=== PATIENT | male | born 1965 | race Caucasian/White ===

== ENCOUNTER → 2016-11-09 | Outpatient (CLI) | payer OTHER ==
[~2016-11-09] MED LIST: *BLDWK10; *CXR; *ECHO -; ACET1TAB18 PO; AMITRIP25 PO; AMO500 PO; AUG500 PO; AUGXR10 PO; Advil PO; DEPA500T; DEPAKOTE; DILA2TAB; DILAUDID; DOXYCYC100; EFFEXORXL3 PO; EFFEXORXL7 PO; ELOCONCR TOPICAL; GABA-279 PO; IMITREX100 PO; INDOCIN PO; LEVA750T; LUNESTA2 PO; LYRICA75 PO; MAXALYMLT1 PO; MECLIZIN PO; MIRALAX PO; No Historical Meds; OXYC15TA76 PO; PAXIL20; PERC10TA17 PO; PRILOSEC PO; SOMA350T PO; TOPA50TA7 PO; TUSSI; TUSSIONEX PO; TYL325 PO; ULTRAM50 PO; VALIUM PO; VICO5TAB16 PO; VICODIN PO; VOLT1GEL24 TD; WELLBSR150
--- NOTE | 2016-11-15 23:48 | ECWPNPC ---
PATIENT NAME: EVARISTO HUDSON : 1965 GENDER: MALE VISIT DATE: 11/09/2016 DISCHARGE DATE: 11/09/16 1123 VISIT LOCKED DATE TIME: PHYSICIAN: KIANNA DURON PHYSICIAN PAGER NO: [phone] RESOURCE: KIANNA DURON REASON FOR APPOINTMENT 1. BACK PAIN HISTORY OF PRESENT ILLNESS HISTORY OF PRESENT ILLNESS: HERE FOR F/U.HAD BILATERAL SIJ ON 06-28-16.REPORTED 75%IMPROVEMENT FOR 3 DAYS THEN PAIN GRADUALLY RETURNED.REPORTS SEVERE INCREASE IN PAIN OVER THE PAST SEVERAL MONTHS W RADIATION INTO LEFT THIGH.THIS IS HIS TYPICAL PAIN DISTRIBUTION.CONTINUES W CONSTANT LEFT FOOT NUMBNESS WHICH IS CHRONIC.HISTORY OF ONE BACK SURGERY 2 YRS AGO.THIS WAS DONE BY DR. EVANS IN [place].USING OXYCODONE 15MG 4X DAY WHICH IS ONLY MARGIANALLY EFFECTIVE.DISCUSSED ISSUES OF TOLERANCE AND PROBLEMS ASSOCIATED WITH OPIOD EXPOSURE ON A DAILY BASIS.HE WOULD ALSO LIKE TO TALK TO SURGEON.MRI L/S [id number]-REVIEWED WITH PATIENT.NEW DISC PROTRUSION AT L4-5 LEVEL CAUSING COMPRESSION OF RIGHT L4 NERVE IN NEURAL FORAMEN.MILD CENTRAL CANAL STENOSIS.DIFFUSE DISC BULGE AT THE L5/S1.THERE IS COMPRESSION OF THE LEFT L5 NERVE IN NEURAL FORAMEN.RATING PAIN VAS 7/10. PAIN THE PATIENT DESCRIBES THE PAIN... THE PATIENT DESCRIBES THE PAIN... FALL RISK SCREENING: SCREENING :NO FALLS IN THE PAST YEAR CURRENT MEDICATIONS TAKING LISINOPRIL 10 MG TABLET 1 TABLET ORALLY ONCE A DAY, NOTES: 06/27/16 2100 TAKING GABAPENTIN 300 MG CAPSULE 1 CAPSULE ORALLY THREE TIMES A DAY TAKING OXYCODONE HCL 15 MG TABLET 1 TABLET ORALLY Q6H PRN MDD4, NOTES: 06/27/16 1615 NOT-TAKING SOMA 350 MG TABLET 1 TABLET NEEDED ORALLY Q8H PRN MDD3 NOT-TAKING VALIUM 10 MG TABLET 2 ORALLY 2 TAB 1HR PRE PROC. MDD2, NOTES: 06/28/16 0815 NOT-TAKING VALIUM 10 MG TABLET 1 ORALLY 1 TAB 1HR PRE PROC. MDD1 NOT-TAKING SUMATRIPTAN SUCCINATE 50 MG TABLET 1 TABLET NEEDED ORALLY AT THE ONSET OF MIGRAINE NOT-TAKING BLOOD PRESSURE MONITOR/L CUFF - MISCELLANEOUS DIRECTED I10 DAILY DISCONTINUED GABAPENTIN 100 MG CAPSULE DIRECTED ORALLY BID MEDICATION LIST REVIEWED AND RECONCILED WITH THE PATIENT PAST MEDICAL HISTORY MIGRAINES VENTRICULAR-SEPTAL DEFECT HX SEIZURES AFTER CRANIOTOMY FOR ARACHNOID CYST IN 2006 ANGIOECTASIA OF TERMINAL ILEUM, THERMAL THERAPY 01/17 [place], H/O GI BLEEDING WITH ACUTE BLOOD LOSS ANEMIA REQUIRING [facility]TP HOSPITALIZATIONS, AND TRANSFUSIONS, NONE SINCE THERMAL THERAPY CKD 3, BASELINES SCR 1.4 - 1.6 DYSLIPIDEMIA WITH LOW HDL 12/21 24 ALLERGIES NSAID: ELEVATED CREATININE: SIDE EFFECTS SOCIAL HISTORY TOBACCO USE ARE YOU A:NONSMOKER LEARNING BARRIERS / SPECIAL NEEDS ORIENTED TO PLAN OF CARE: PATIENT, PAIN MANAGEMENT PATIENT, ORIENTED TO PLAN OF CARE: PATIENT, PAIN MANAGEMENT PATIENT. NEW PATIENT PAIN DIARY TODAY'S VISITNOTES FROM 0-10, WHAT LEVEL IS YOUR PAIN TODAY?0 PAIN CLINIC PFS, CLERGY, PUBLIC HEALTH REFERRALS PFS REFERRAL NEEDED?NO CLERGY REFERRAL NEEDED?NO PUBLIC HEALTH REFERRAL NEEDED?NO WAS THE PROVIDER NOTIFIED OF ANY PERTINENT INFO?NO PFS REFERRAL NEEDED?NO CLERGY REFERRAL NEEDED?NO PUBLIC HEALTH REFERRAL NEEDED?NO WAS THE PROVIDER NOTIFIED OF ANY PERTINENT INFO?NO REVIEW OF SYSTEMS CONSTITUTIONAL: ANY CHANGE IN YOUR MEDICAL CONDITION? NO . CHILLS NO . FEVER NO . INFECTION: DO YOU HAVE NEW INFECTIONS? NO . DO YOU HAVE HISTORY OF MRSA? NO . MUSCULOSKELETAL: ANY NEW PATTERNS OF PAIN OR NUMBNESS? NO . GASTROENTEROLOGY: ANY NEW CHANGE IN BOWEL CONTROL? NO . GENITOURINARY: ANY NEW CHANGE IN BLADDER CONTROL? NO . IS THERE A CHANCE YOU COULD BE ? NO . HEMATOLOGY/LYMPH: DO YOU TAKE ANY BLOOD THINNERS? (FOR EXAMPLE- COUMADIN, PLAVIX, AGGRENOX, PLATEL, PRADAXA, OR XARELTO) NO . WHEN WAS YOUR LAST DOSE? DATE: TIME: . NEUROLOGY: HAVE YOU FALLEN IN THE PAST 6 MONTHS? NO . ANY NEW EXTREMITY NUMBNESS OR WEAKNESS? NO . CARDIOLOGY: DO YOU HAVE A PACEMAKER OR DEFIBRILLATOR? NO . RESPIRATORY: HAVE YOU BEEN SICK IN THE PAST WEEK? NO . FEVER NO . FLU LIKE SYMPTOMS? NO . COUGH NO . INTEGUMENTARY: DO YOU HAVE ANY RASHES OR OPEN SORES? NO . ALLERGIC/IMMUNO: ARE YOU ALLERGIC TO SHELLFISH OR IV DYE? NO . ANY NEW ALLERGIES? NO . PSYCHIATRIC: DO YOU HAVE THOUGHTS OF HURTING YOURSELF OR SOMEONE ELSE? NO . ARE YOU ABUSED, NEGLECTED, OR IN AN UNSAFE ENVIRONMENT? NO . ENDOCRINOLOGY: ARE YOU DIABETIC? NO . OTHER: DO YOU NEED ANY PRESCRIPTIONS? YES, OXYCODONE . IF YES, PLEASE LIST: ____ . ANY NEW PROBLEMS WITH YOUR MEDICATIONS? NO . WHEN DID YOU LAST EAT? ____ . WHEN DID YOU LAST DRINK? ____ . WHAT DID YOU LAST DRINK? ____ . NAME OF PERSON DRIVING YOU HOME? ____ . DO YOU HAVE ANY OTHER QUESTIONS OR CONCERNS NO . REVIEWED BY: PROVIDER: KIANNA MOE . VITAL SIGNS WT 268 LBS, HT 74 IN, BMI 34.41 INDEX, BP 151/91 MM HG, HR 74 /MIN, RR 18 /MIN, TEMP 98.2 F, OXYGEN SAT % 97%, NA INITIALS SC 10:45, REVIEWED BY: KG. EXAMINATION GENERAL EXAMINATION: LUNGS:LUNG SOUNDS ARE CLEAR. HEART:HEART RATE REGULAR. HEART:HEART RATE REGULAR, 2/6PAN SYSTOLIC MURMUR. MUSCULOSKELETAL:*, MUSCLE STRENGTH TESTING 5/5 RIGHT AND 3/5 LEFTPALPATION: NEGATIVE FOR PAIN OVER L/S SPINE. POSITIVE FOR PAIN OVER L/S PARSPINALS.SPECIFIC POINT TENDERNESS OVER BILAT. FACETS. DIAGNOSTIC:MRI L/S [id number]-REVIEWED. 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 MATERIAL WAS PRINTED,LUMBAR EPIDURAL INJECTION: YOUR PROCEDURE MATERIAL WAS PRINTED. OTHERS CAUDAL/LUMBAR EPIDURAL PROCEDURE CODES FA211 ESTABILISHED PATIENT [facility] CHARGE FOLLOW UP 2WK POST PROC. (REASON: CAUDAL EPIDURAL GUANAKITO) ELECTRONICALLY SIGNED BY PAYAL GONZALES ON 11/15/2016 AT 11:16 AM EST DISCLAIMER : THIS IS A VISIT SUMMARY EXTRACTED FROM THE [employer] CHART. IT IS NOT A COPY OF THE [employer] PROGRESS NOTE. SHAYY
== END ==
LOC: M PAIN 10:20
PROVIDERS: ATTEND Nurse Practitioner Family
DX: M43.07 Spondylolysis, lumbosacral region (principal); M96.1 Postlaminectomy syndrome, not elsewhere classified; Z79.891 Long term (current) use of opiate analgesic; Z88.8 Allergy status to other drugs, medicaments and biological substances

== ENCOUNTER → 2016-11-12 | Outpatient (CLI) | payer OTHER ==
[~2016-11-12] MED LIST changes: +ISOVUE-M 300 61% 15ML VIAL (Q9967) As Ordered ONE; +LIDOCAINE 1% SDV INJ 30 ML VIAL As Ordered ONE; +diazePAM 5 MG TAB As Ordered ONE; +methylPREDNISolone SUSP 40 MG/ML (DEPO-medrol) VIAL (J1030) As Ordered ONE; +oxyCODONE 5MG TAB As Ordered ONE
--- NOTE | 2016-11-12 16:08 | REP ---
PARTIAL SACRUM AND COCCYX, SINGLE VIEW: HISTORY: Caudal epidural steroid injection for pain. 15 seconds of fluoroscopic time is reported. FINDINGS: A single lateral fluoroscopically obtained intraprocedural spot radiograph of the sacrum and coccyx documents needle position and contrast injection associated with caudal epidural injection procedure. Signed by Pedrito Genao MD 11/12/2016 07:28 P
--- NOTE | 2016-11-20 00:54 | ECWPNPC ---
PATIENT NAME: EVARISTO HUDSON : 1965 GENDER: MALE VISIT DATE: 11/12/2016 DISCHARGE DATE: 11/12/16 1601 VISIT LOCKED DATE TIME: PHYSICIAN: RADAMES MCKEON PHYSICIAN PAGER NO: [phone] RESOURCE: RADAMES MCKEON REASON FOR APPOINTMENT 1. CAUDAL EPIDURAL HISTORY OF PRESENT ILLNESS HISTORY OF PRESENT ILLNESS: PAIN THE PATIENT DESCRIBES THE PAIN... FALL RISK SCREENING: SCREENING :NO FALLS IN THE PAST YEAR CURRENT MEDICATIONS TAKING GABAPENTIN 300 MG CAPSULE 2 CAPSULE BRENNAN,1 MIDDAY,2 IN PM ORALLY THREE TIMES A DAY MDD5, NOTES: 11-11-2016 2200 TAKING OXYCODONE HCL 15 MG TABLET 1 TABLET ORALLY Q6H PRN MDD4, NOTES: 11-11-2016 2200 TAKING SOMA 350 MG TABLET 1 TABLET NEEDED ORALLY Q8H PRN MDD3, NOTES: 11-08-16 1400 NOT-TAKING LISINOPRIL 10 MG TABLET 1 TABLET ORALLY ONCE A DAY NOT-TAKING VALIUM 10 MG TABLET 2 ORALLY 2 TAB 1HR PRE PROC. MDD2, NOTES: 06/28/16 0815 NOT-TAKING VALIUM 10 MG TABLET 1 ORALLY 1 TAB 1HR PRE PROC. MDD1 NOT-TAKING SUMATRIPTAN SUCCINATE 50 MG TABLET 1 TABLET NEEDED ORALLY AT THE ONSET OF MIGRAINE NOT-TAKING BLOOD PRESSURE MONITOR/L CUFF - MISCELLANEOUS DIRECTED I10 DAILY MEDICATION LIST REVIEWED AND RECONCILED WITH THE PATIENT PAST MEDICAL HISTORY MIGRAINES VENTRICULAR-SEPTAL DEFECT HX SEIZURES AFTER CRANIOTOMY FOR ARACHNOID CYST IN 2006 ANGIOECTASIA OF TERMINAL ILEUM, THERMAL THERAPY 01/17 [place], H/O GI BLEEDING WITH ACUTE BLOOD LOSS ANEMIA REQUIRING MTP HOSPITALIZATIONS, AND TRANSFUSIONS, NONE SINCE THERMAL THERAPY CKD 3, BASELINES SCR 1.4 - 1.6 DYSLIPIDEMIA WITH LOW HDL 12/21 24 ALLERGIES NSAID: ELEVATED CREATININE: SIDE EFFECTS SURGICAL HISTORY CRANIOTOMY WITH HX OF ARACHNOID CYST 2006 NO PERSONAL OR FHX OF SEVERE REACTION TO ANESTHESIA EGD/COLONOSCOPY/CAPSULE ENDOSCOPY FOR GI BLEED--NEG BX DR SALINAS; HAD RECTAL VESSEL CLIPPED 2008 EGD/COLONOSCOPY--NL DR SALINAS 09/2011 EGD/COLONOSCOPY--MILD ESOPHAGITIS, BX NEG FOR BARRETTS; DR PRISCILA MARES [place] 2011 HOSPITALIZATION/MAJOR DIAGNOSTIC PROCEDURE LOWER GI BLEEDING, [facility]TP HOSPITALIZATIONS [id number] REVIEW OF SYSTEMS CONSTITUTIONAL: ANY CHANGE IN YOUR MEDICAL CONDITION? NO . CHILLS NO . FEVER NO . INFECTION: DO YOU HAVE NEW INFECTIONS? NO . DO YOU HAVE HISTORY OF MRSA? NO . MUSCULOSKELETAL: ANY NEW PATTERNS OF PAIN OR NUMBNESS? NO . GASTROENTEROLOGY: ANY NEW CHANGE IN BOWEL CONTROL? NO . GENITOURINARY: ANY NEW CHANGE IN BLADDER CONTROL? NO . IS THERE A CHANCE YOU COULD BE ? NO . HEMATOLOGY/LYMPH: DO YOU TAKE ANY BLOOD THINNERS? (FOR EXAMPLE- COUMADIN, PLAVIX, AGGRENOX, PLATEL, PRADAXA, OR XARELTO) NO . WHEN WAS YOUR LAST DOSE? DATE: TIME: . NEUROLOGY: HAVE YOU FALLEN IN THE PAST 6 MONTHS? NO . ANY NEW EXTREMITY NUMBNESS OR WEAKNESS? NO . CARDIOLOGY: DO YOU HAVE A PACEMAKER OR DEFIBRILLATOR? NO . RESPIRATORY: HAVE YOU BEEN SICK IN THE PAST WEEK? NO . FEVER NO . FLU LIKE SYMPTOMS? NO . COUGH NO . INTEGUMENTARY: DO YOU HAVE ANY RASHES OR OPEN SORES? NO . ALLERGIC/IMMUNO: ARE YOU ALLERGIC TO SHELLFISH OR IV DYE? NO . ANY NEW ALLERGIES? NO . PSYCHIATRIC: DO YOU HAVE THOUGHTS OF HURTING YOURSELF OR SOMEONE ELSE? NO . ARE YOU ABUSED, NEGLECTED, OR IN AN UNSAFE ENVIRONMENT? NO . ENDOCRINOLOGY: ARE YOU DIABETIC? NO . OTHER: DO YOU NEED ANY PRESCRIPTIONS? NO . IF YES, PLEASE LIST: ____ . ANY NEW PROBLEMS WITH YOUR MEDICATIONS? NO . WHEN DID YOU LAST EAT? 0600 . WHEN DID YOU LAST DRINK? 0600 . WHAT DID YOU LAST DRINK? ORANGE JUICE . NAME OF PERSON DRIVING YOU HOME? ABIGAIL HUDSON . DO YOU HAVE ANY OTHER QUESTIONS OR CONCERNS NO . REVIEWED BY: PROVIDER: . VITAL SIGNS WT 268 LBS, HT 74 IN, BMI 34.41 INDEX, BP 133/87 MM HG, HR 69 /MIN, RR 16 /MIN, TEMP 97.4 F, OXYGEN SAT % 96, NA INITIALS TL 1330, REVIEWED BY: LS. ASSESSMENTS POSTLAMINECTOMY SYNDROME, NOT ELSEWHERE CLASSIFIED - M96.1 (PRIMARY) PROCEDURES PN CAUDAL EPIDURALS PRE PROCEDURE DIAGNOSIS LUMBAR POST LAMINECTOMY PAIN SYNDROME POST PROCEDURE DIAGNOSIS LUMBAR POST LAMINECTOMY PAIN SYNDROME PROCEDURE CAUDAL EPIDURAL STEROID INJECTION UNDER FLUOROSCOPIC GUIDANCE. SURGEON DR. RADAMES MCKEON DIRECTOR OF STRATEGIC SALES NONE ANESTHESIA LOCAL PRE PROCEDURE NOTE THE PATIENT HAS HISTORY OF CHRONIC LOW BACK PAIN. I EVALUATE THE PATIENT AND REVIEWED THE CHART. I WENT OVER THE RISKS, ALTERNATIVES, AND BENEFITS ASSOCIATED WITH THIS PROCEDURE. THE PATIENT WOULD LIKE TO PROCEED AND GIVE CONSENT TO PERFORMED THE PROCEDURE. THE PATIENT DENIES UNEXPLAINABLE WEIGHT LOSS, FEVER, CHILLS, OR NEW CHANGES IN URINARY OR BOWEL CONTROL. DESCRIPTION OF PROCEDURE THE PATIENT WAS BROUGHT TO THE PROCEDURE ROOM AND PLACED IN THE PRONE POSITION. THE LUMBOSACRAL AREA WAS CLEANED WITH BETADINE SOLUTION AND DRAPED ASEPTICALLY. THE PROCEDURE WAS DONE UNDER STERILE CONDITIONS. I CHECKED LATERALITY AND THE LEVEL WHERE THE PROCEDURE WAS GOING TO BE PERFORMED WITH THE PATIENT AND THE SUPPORTING STAFF AT THE MOMENT OF THE TIME OUT IN THE PROCEDURE ROOM. UNDER FLUOROSCOPIC GUIDANCE, THE TARGET POINT WAS SELECTED AT THE EPIDURAL SPACE BELOW THE SACROCOCCYGEAL LIGAMENT. LIDOCAINE 0.5% WAS USE TO NUMB THE SKIN AND THE SUBCUTANEOUS TISSUE BELOW IT. AN EPIDURAL TUOHY NEEDLE, 17-GAUGE, WAS ADVANCED UNDER FLUOROSCOPIC GUIDANCE AND FOLLOWING PATIENT FEEDBACK UNTIL THE EPIDURAL SPACE WAS REACHED 6 CM DEEP INTO THE SKIN BY THE LOSS OF RESISTANCE TECHNIQUE. ISOVUE M DYE 30%, 0.25 ML, WAS INJECTED SHOWING ADEQUATE SPREAD OF THE DYE. THEN, A SOLUTION OF 6 ML OF NORMAL SALINE WITH DEPO-MEDROL 60 MG WAS INJECTED SLOWLY FOLLOWING THE PATIENT FEEDBACK. THERE WAS NO EVIDENCE OF BLOOD, PARESTHESIA OR CEREBROSPINAL FLUID DURING THE PROCEDURE. THE PATIENT WAS SENT TO THE RECOVERY ROOM. THE PATIENT WAS MOVING THE EXTREMITIES AND DOING WELL. THERE WAS NO COMPLICATION DURING THE PROCEDURE. FLUOROSCOPY TIME WAS 15 SECONDS POST PROCEDURE NOTE THE PATIENT WILL BE SEEN IN A FOLLOW UP IN THE NEXT FEW WEEKS. INSTRUCTIONS WERE GIVEN, QUESTIONS WERE ANSWERED, AND THE PATIENT EXPRESSED UNDERSTANDING AND AGREES WITH THE PLAN DIAGNOSTIC IMAGING [facility] FLUORO GUIDE SPINE INJECTION (PAIN)[id number] PROCEDURE CODES 36403 LUMBAR/SACRAL W/ IMAGING 6045F RADXPS IN END [id number] PXD FOLLOW UP 3 WEEKS ELECTRONICALLY SIGNED BY RADAMES MCKEON MD ON 11/19/2016 AT 02:58 PM EST DISCLAIMER : THIS IS A VISIT SUMMARY EXTRACTED FROM THE [employer] CHART. IT IS NOT A COPY OF THE [employer] PROGRESS NOTE. MTDD
== END ==
LOC: M PAIN 13:20
PROVIDERS: ATTEND Anesthesiology
DX: G89.29 Other chronic pain (principal); M96.1 Postlaminectomy syndrome, not elsewhere classified; M54.5 Low back pain; G43.909 Migraine, unspecified, not intractable, without status migrainosus; Q21.0 Ventricular septal defect; N18.3 Chronic kidney disease, stage 3 (moderate); E78.5 Hyperlipidemia, unspecified; Z88.8 Allergy status to other drugs, medicaments and biological substances; Z79.891 Long term (current) use of opiate analgesic; Z79.899 Other long term (current) drug therapy; Z86.69 Personal history of other diseases of the nervous system and sense organs
CPT/HCPCS: 62323; J1030; Q9967

== ENCOUNTER → 2016-12-10 | Outpatient (CLI) | payer OTHER ==
[~2016-12-10] MED LIST changes: -ISOVUE-M 300 61% 15ML VIAL (Q9967) As Ordered ONE; -LIDOCAINE 1% SDV INJ 30 ML VIAL As Ordered ONE; -diazePAM 5 MG TAB As Ordered ONE; -methylPREDNISolone SUSP 40 MG/ML (DEPO-medrol) VIAL (J1030) As Ordered ONE; -oxyCODONE 5MG TAB As Ordered ONE
--- NOTE | 2016-12-11 00:04 | ECWPNPC ---
PATIENT NAME: EVARISTO HUDSON : 1965 GENDER: MALE VISIT DATE: 12/10/2016 DISCHARGE DATE: 12/10/16 1422 VISIT LOCKED DATE TIME: PHYSICIAN: KIANNA DRUON PHYSICIAN PAGER NO: [phone] RESOURCE: KIANNA DURON REASON FOR APPOINTMENT 1. POST PROCEDURE-BACK HISTORY OF PRESENT ILLNESS GENERAL: HERE FOR POST PROCEDURE F/U.HAD CAUDAL EPIDURAL ON 11-15-16.REPORTS 2WKS IMPROVEMENT IN LBP.NO IMPROVEMENT IN LEFT LEG PAIN POST PROCEDURE.USING OXYCODONE 15MG Q6H PRN WHICH IS SOMEWHAT EFFETIVE.DIAGNOSED WITH UMBILICAL HERNIA TODAY.RATING PAIN VAS 6/10. HISTORY OF PRESENT ILLNESS: PAIN THE PATIENT DESCRIBES THE PAIN... FALL RISK SCREENING: SCREENING :NO FALLS IN THE PAST YEAR CURRENT MEDICATIONS TAKING GABAPENTIN 300 MG CAPSULE 2 CAPSULE BRENNAN,1 MIDDAY,2 IN PM ORALLY THREE TIMES A DAY MDD5 TAKING OXYCODONE HCL 15 MG TABLET 1 TABLET ORALLY Q6H PRN MDD4 TAKING SOMA 350 MG TABLET 1 TABLET NEEDED ORALLY Q8H PRN MDD3 NOT-TAKING LISINOPRIL 10 MG TABLET 1 TABLET ORALLY ONCE A DAY NOT-TAKING VALIUM 10 MG TABLET 2 ORALLY 2 TAB 1HR PRE PROC. MDD2, NOTES: 06/28/16 0815 NOT-TAKING VALIUM 10 MG TABLET 1 ORALLY 1 TAB 1HR PRE PROC. MDD1 NOT-TAKING SUMATRIPTAN SUCCINATE 50 MG TABLET 1 TABLET NEEDED ORALLY AT THE ONSET OF MIGRAINE NOT-TAKING BLOOD PRESSURE MONITOR/L CUFF - MISCELLANEOUS DIRECTED I10 DAILY MEDICATION LIST REVIEWED AND RECONCILED WITH THE PATIENT PAST MEDICAL HISTORY MIGRAINES VENTRICULAR-SEPTAL DEFECT HX SEIZURES AFTER CRANIOTOMY FOR ARACHNOID CYST IN 2006 ANGIOECTASIA OF TERMINAL ILEUM, THERMAL THERAPY 01/17 [place], H/O GI BLEEDING WITH ACUTE BLOOD LOSS ANEMIA REQUIRING MTP HOSPITALIZATIONS, AND TRANSFUSIONS, NONE SINCE THERMAL THERAPY CKD 3, BASELINES SCR 1.4 - 1.6 DYSLIPIDEMIA WITH LOW HDL 12/21 23 UNBILICAL HERNIA ALLERGIES NSAID: ELEVATED CREATININE: SIDE EFFECTS SOCIAL HISTORY GENERAL: TOBACCO USE ARE YOU A:NONSMOKER LEARNING BARRIERS / SPECIAL NEEDS ORIENTED TO PLAN OF CARE: PATIENT, PAIN MANAGEMENT PATIENT, ORIENTED TO PLAN OF CARE: PATIENT, PAIN MANAGEMENT PATIENT. NEW PATIENT PAIN DIARY TODAY'S VISITNOTES FROM 0-10, WHAT LEVEL IS YOUR PAIN TODAY?0 PAIN CLINIC PFS, CLERGY, PUBLIC HEALTH REFERRALS PFS REFERRAL NEEDED?NO CLERGY REFERRAL NEEDED?NO PUBLIC HEALTH REFERRAL NEEDED?NO WAS THE PROVIDER NOTIFIED OF ANY PERTINENT INFO?NO PFS REFERRAL NEEDED?NO CLERGY REFERRAL NEEDED?NO PUBLIC HEALTH REFERRAL NEEDED?NO WAS THE PROVIDER NOTIFIED OF ANY PERTINENT INFO?NO REVIEW OF SYSTEMS CONSTITUTIONAL: ANY CHANGE IN YOUR MEDICAL CONDITION? NO . CHILLS NO . FEVER NO . INFECTION: DO YOU HAVE NEW INFECTIONS? NO . DO YOU HAVE HISTORY OF MRSA? NO . MUSCULOSKELETAL: ANY NEW PATTERNS OF PAIN OR NUMBNESS? NO . GASTROENTEROLOGY: ANY NEW CHANGE IN BOWEL CONTROL? NO . GENITOURINARY: ANY NEW CHANGE IN BLADDER CONTROL? NO . IS THERE A CHANCE YOU COULD BE ? NO . HEMATOLOGY/LYMPH: DO YOU TAKE ANY BLOOD THINNERS? (FOR EXAMPLE- COUMADIN, PLAVIX, AGGRENOX, PLATEL, PRADAXA, OR XARELTO) NO . WHEN WAS YOUR LAST DOSE? DATE: TIME: . NEUROLOGY: HAVE YOU FALLEN IN THE PAST 6 MONTHS? YES ON THE ICE-NO EVAL . ANY NEW EXTREMITY NUMBNESS OR WEAKNESS? NO . CARDIOLOGY: DO YOU HAVE A PACEMAKER OR DEFIBRILLATOR? NO . RESPIRATORY: HAVE YOU BEEN SICK IN THE PAST WEEK? YES MILD URI S/S YESTERDAY . FEVER NO . FLU LIKE SYMPTOMS? NO . COUGH NO . INTEGUMENTARY: DO YOU HAVE ANY RASHES OR OPEN SORES? NO . ALLERGIC/IMMUNO: ARE YOU ALLERGIC TO SHELLFISH OR IV DYE? NO . ANY NEW ALLERGIES? NO . PSYCHIATRIC: DO YOU HAVE THOUGHTS OF HURTING YOURSELF OR SOMEONE ELSE? NO . ARE YOU ABUSED, NEGLECTED, OR IN AN UNSAFE ENVIRONMENT? NO . ENDOCRINOLOGY: ARE YOU DIABETIC? NO . OTHER: DO YOU NEED ANY PRESCRIPTIONS? YES OXYCODONE . IF YES, PLEASE LIST: ____ . ANY NEW PROBLEMS WITH YOUR MEDICATIONS? NO . WHEN DID YOU LAST EAT? ____ . WHEN DID YOU LAST DRINK? ____ . WHAT DID YOU LAST DRINK? ____ . NAME OF PERSON DRIVING YOU HOME? ____ . DO YOU HAVE ANY OTHER QUESTIONS OR CONCERNS NO . REVIEWED BY: PROVIDER: KIANNA MOE . VITAL SIGNS WT 268 LBS, HT 74 IN, BMI 34.41 INDEX, BP 152/99 R ARM 156/103 L ARM, REPEAT BP 152/100 MANUAL BP, HR 89 /MIN, RR 16 /MIN, TEMP 97.6 F, OXYGEN SAT % 98, NA INITIALS TL 1325, REVIEWED BY: MYRIAM MICHEL, SANCHEZ Olmedo AWARE- TL. EXAMINATION GENERAL EXAMINATION: LUNGS:LUNG SOUNDS ARE CLEAR. HEART:HEART RATE REGULAR. HEART:HEART RATE REGULAR, 2/6PAN SYSTOLIC MURMUR. MUSCULOSKELETAL:*, MUSCLE STRENGTH TESTING 5/5 RIGHT AND 3/5 LEFTPALPATION: NEGATIVE FOR PAIN OVER L/S SPINE. POSITIVE FOR PAIN OVER L/S PARSPINALS.SPECIFIC POINT TENDERNESS OVER BILAT. FACETS. DIAGNOSTIC:MRI L/S [id number]-REVIEWED. 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 (REASON: CAUDAL EPIDURAL) ELECTRONICALLY SIGNED BY PAYAL GONZALES ON 12/10/2016 AT 02:28 PM EST DISCLAIMER : THIS IS A VISIT SUMMARY EXTRACTED FROM THE [employer] CHART. IT IS NOT A COPY OF THE [employer] PROGRESS NOTE. YURYD
== END ==
LOC: M PAIN 13:20
PROVIDERS: ATTEND Nurse Practitioner Family
DX: Z09 Encounter for follow-up examination after completed treatment for conditions other than malignant neoplasm (principal); G89.29 Other chronic pain; M43.07 Spondylolysis, lumbosacral region; M96.1 Postlaminectomy syndrome, not elsewhere classified; N18.3 Chronic kidney disease, stage 3 (moderate); E78.5 Hyperlipidemia, unspecified; G43.909 Migraine, unspecified, not intractable, without status migrainosus; Q21.0 Ventricular septal defect; K42.9 Umbilical hernia without obstruction or gangrene; Z88.6 Allergy status to analgesic agent; Z79.891 Long term (current) use of opiate analgesic; Z79.899 Other long term (current) drug therapy; Z86.69 Personal history of other diseases of the nervous system and sense organs

== ENCOUNTER → 2017-01-28 | Outpatient (CLI) | payer OTHER ==
--- NOTE | 2017-01-28 23:36 | ECWPNPC ---
PATIENT NAME: EVARISTO HUDSON : 1965 GENDER: MALE VISIT DATE: 01/28/2017 DISCHARGE DATE: 01/28/17 1559 VISIT LOCKED DATE TIME: PHYSICIAN: KIANNA DURON PHYSICIAN PAGER NO: [phone] RESOURCE: KIANNA DURON HISTORY OF PRESENT ILLNESS HISTORY OF PRESENT ILLNESS: HERE FOR POST PROCEDURE F/U.HAD CAUDAL EPIDURAL INJECTION ON 12-17-16 AND REPORTS APROXIMATLEY ONE MONTH IMPROVEMENT IN PAIN POST PROCEDURE.PAIN RETURNED TO BASELINE.RATING PAIN VAS 7/10.USING OXYCODONE 15MG PRN FOR PAIN WITH SOME IMPROVEMENT.STATES LAST OXYCODONE 15MG WAS THIS AM. PAIN THE PATIENT DESCRIBES THE PAIN... FALL RISK SCREENING: SCREENING :NO FALLS IN THE PAST YEAR CURRENT MEDICATIONS TAKING SOMA 350 MG TABLET 1 TABLET NEEDED ORALLY Q8H PRN MDD3 TAKING GABAPENTIN 300 MG CAPSULE 2 CAPSULE BRENNAN,1 MIDDAY,2 IN PM ORALLY THREE TIMES A DAY MDD5 TAKING OXYCODONE HCL 15 MG TABLET 1 TABLET ORALLY Q6H PRN MDD4 NOT-TAKING LISINOPRIL 10 MG TABLET 1 TABLET ORALLY ONCE A DAY NOT-TAKING VALIUM 10 MG TABLET 2 ORALLY 2 TAB 1HR PRE PROC. MDD2, NOTES: 06/28/16 0815 NOT-TAKING VALIUM 10 MG TABLET 1 ORALLY 1 TAB 1HR PRE PROC. MDD1 NOT-TAKING SUMATRIPTAN SUCCINATE 50 MG TABLET 1 TABLET NEEDED ORALLY AT THE ONSET OF MIGRAINE NOT-TAKING BLOOD PRESSURE MONITOR/L CUFF - MISCELLANEOUS DIRECTED I10 DAILY MEDICATION LIST REVIEWED AND RECONCILED WITH THE PATIENT PAST MEDICAL HISTORY MIGRAINES VENTRICULAR-SEPTAL DEFECT HX SEIZURES AFTER CRANIOTOMY FOR ARACHNOID CYST IN 2006 ANGIOECTASIA OF TERMINAL ILEUM, THERMAL THERAPY 01/17 [place], H/O GI BLEEDING WITH ACUTE BLOOD LOSS ANEMIA REQUIRING MTP HOSPITALIZATIONS, AND TRANSFUSIONS, NONE SINCE THERMAL THERAPY CKD 3, BASELINES SCR 1.4 - 1.6 DYSLIPIDEMIA WITH LOW HDL 12/21 24 UNBILICAL HERNIA ALLERGIES NSAID: ELEVATED CREATININE: CONTRAINDICATION REVIEW OF SYSTEMS CONSTITUTIONAL: ANY CHANGE IN YOUR MEDICAL CONDITION? NO . CHILLS NO . FEVER NO . INFECTION: DO YOU HAVE NEW INFECTIONS? NO . DO YOU HAVE HISTORY OF MRSA? NO . MUSCULOSKELETAL: ANY NEW PATTERNS OF PAIN OR NUMBNESS? NO . GASTROENTEROLOGY: ANY NEW CHANGE IN BOWEL CONTROL? NO . GENITOURINARY: ANY NEW CHANGE IN BLADDER CONTROL? NO . IS THERE A CHANCE YOU COULD BE ? NO . HEMATOLOGY/LYMPH: DO YOU TAKE ANY BLOOD THINNERS? (FOR EXAMPLE- COUMADIN, PLAVIX, AGGRENOX, PLATEL, PRADAXA, OR XARELTO) NO . WHEN WAS YOUR LAST DOSE? DATE: TIME: . NEUROLOGY: HAVE YOU FALLEN IN THE PAST 6 MONTHS? NO . ANY NEW EXTREMITY NUMBNESS OR WEAKNESS? NO . CARDIOLOGY: DO YOU HAVE A PACEMAKER OR DEFIBRILLATOR? NO . RESPIRATORY: HAVE YOU BEEN SICK IN THE PAST WEEK? NO . FEVER NO . FLU LIKE SYMPTOMS? NO . COUGH NO . INTEGUMENTARY: DO YOU HAVE ANY RASHES OR OPEN SORES? NO . ALLERGIC/IMMUNO: ARE YOU ALLERGIC TO SHELLFISH OR IV DYE? NO . ANY NEW ALLERGIES? NO . PSYCHIATRIC: DO YOU HAVE THOUGHTS OF HURTING YOURSELF OR SOMEONE ELSE? NO . ARE YOU ABUSED, NEGLECTED, OR IN AN UNSAFE ENVIRONMENT? NO . ENDOCRINOLOGY: ARE YOU DIABETIC? NO . OTHER: DO YOU NEED ANY PRESCRIPTIONS? NO . IF YES, PLEASE LIST: ____ . ANY NEW PROBLEMS WITH YOUR MEDICATIONS? NO . WHEN DID YOU LAST EAT? ____ . WHEN DID YOU LAST DRINK? ____ . WHAT DID YOU LAST DRINK? ____ . NAME OF PERSON DRIVING YOU HOME? ____ . DO YOU HAVE ANY OTHER QUESTIONS OR CONCERNS YES, WOULD LIKE ANOTHER CAUDAL EPIDURAL . REVIEWED BY: PROVIDER: KIANNA MOE . VITAL SIGNS WT 270.4 LBS, HT 74 IN, BMI 34.71 INDEX, BP 159/86 MM HG, HR 87 /MIN, RR 16 /MIN, TEMP 98.4 F, OXYGEN SAT % 93%, NA INITIALS SC 15:15. EXAMINATION GENERAL EXAMINATION: LUNGS:LUNG SOUNDS ARE CLEAR. HEART:HEART RATE REGULAR. HEART:HEART RATE REGULAR, 2/6PAN SYSTOLIC MURMUR. MUSCULOSKELETAL:*, MUSCLE STRENGTH TESTING 5/5 RIGHT AND 3/5 LEFTPALPATION: NEGATIVE FOR PAIN OVER L/S SPINE. POSITIVE FOR PAIN OVER L/S PARSPINALS.SPECIFIC POINT TENDERNESS OVER BILAT. FACETS. DIAGNOSTIC:MRI L/S [id number]-REVIEWED. ASSESSMENTS LUMBOSACRAL SPONDYLOLYSIS - M43.07 (PRIMARY) POST LAMINECTOMY SYNDROME - M96.1 CHRONIC PRESCRIPTION OPIATE USE - Z79.891 TREATMENT LUMBOSACRAL SPONDYLOLYSIS CAUDAL/LUMBAR EPIDURALKIANNA DURON 01/28/2017 4:08:07 PM > CAUDAL EPIDURAL NOTES: ISTOP REGISTRY REVIEWED AND DEMNOSTRATES COMPLLIANCE. BRINGS IN MEDICATIONS WHICH IS APPROPRIATE FOR WHAT WAS DISPENSED. RECENT URINE TOXICOLOGY REVIEWED. NO UNAUTHORIZED MEDICATIONS. NO ILLICIT SUBSTANCES AND PRESCRIBED MEDICATIONS WERE PRESENT. , RISKS AND BENEFITS OF NARCOTIC/OPIOD MEDICATIONS WERE REVIEWED WITH PATIENT - THIS INCLUDES BUT IS NOT LIMITED TO RISK OF DEPENDANCE/DEVELOPMENT OF ADDICTION, MOOD DISTURBANCE AND DEPRESSION, OSTEOPOROSIS, HORMONAL AND LABIDAL CHANGES, RESPIRATORY DEPRESSION AND . PATIENT IS ADVISED NOT TO DRIVE WHILE ON THESE MEDICATIONS. DISPOSITION & COMMUNICATION FOLLOW UP 2WK POST PROC. (REASON: CAUDAL EPIDURAL) ELECTRONICALLY SIGNED BY PAYAL GONZALES ON 01/28/2017 AT 04:09 PM EDT DISCLAIMER : THIS IS A VISIT SUMMARY EXTRACTED FROM THE [employer] CHART. IT IS NOT A COPY OF THE [employer] PROGRESS NOTE. SHAYY
== END ==
LOC: M PAIN 15:00
PROVIDERS: ATTEND Nurse Practitioner Family
DX: Z09 Encounter for follow-up examination after completed treatment for conditions other than malignant neoplasm (principal); G89.29 Other chronic pain; M43.07 Spondylolysis, lumbosacral region; M96.1 Postlaminectomy syndrome, not elsewhere classified; G43.909 Migraine, unspecified, not intractable, without status migrainosus; N18.3 Chronic kidney disease, stage 3 (moderate); E78.5 Hyperlipidemia, unspecified; K42.9 Umbilical hernia without obstruction or gangrene; Z88.6 Allergy status to analgesic agent; Z79.891 Long term (current) use of opiate analgesic; Z79.899 Other long term (current) drug therapy; Z86.69 Personal history of other diseases of the nervous system and sense organs

== ENCOUNTER → 2017-02-16 | Outpatient (CLI) | payer OTHER ==
[~2017-02-16] MED LIST changes: +ISOVUE-M 300 61% 15ML VIAL (Q9967) As Ordered ONE; +LIDOCAINE 1% SDV INJ 30 ML VIAL As Ordered ONE; +diazePAM 5 MG TAB As Ordered ONE; +methylPREDNISolone SUSP 40 MG/ML (DEPO-medrol) VIAL (J1030) As Ordered ONE; +oxyCODONE 5MG TAB As Ordered ONE
--- NOTE | 2017-02-16 15:57 | REP ---
Partial sacrum series: Single view: History: Caudal epidural steroid injection for pain. 8 seconds of fluoroscopy time is reported. Findings: A single last image hold fluoroscopic spot radiographs of the coccyx documents needle position and contrast injection associated with caudal epidural injection procedure. Signed by Pedrito Genao MD 02/16/2017 04:12 P
--- NOTE | 2017-02-28 00:03 | ECWPNPC ---
PATIENT NAME: EVARISTO HUDSON : 1965 GENDER: MALE VISIT DATE: 02/16/2017 DISCHARGE DATE: 02/16/17 1235 VISIT LOCKED DATE TIME: PHYSICIAN: RADAMES MCKEON PHYSICIAN PAGER NO: [phone] RESOURCE: RADAMES MCKEON REASON FOR APPOINTMENT 1. CAUDAL HISTORY OF PRESENT ILLNESS HISTORY OF PRESENT ILLNESS: PAIN THE PATIENT DESCRIBES THE PAIN... FALL RISK SCREENING: SCREENING :NO FALLS IN THE PAST YEAR CURRENT MEDICATIONS TAKING SOMA 350 MG TABLET 1 TABLET NEEDED ORALLY Q8H PRN MDD3, NOTES: 02/15/172129 TAKING GABAPENTIN 300 MG CAPSULE 2 CAPSULE BRENNAN,1 MIDDAY,2 IN PM ORALLY THREE TIMES A DAY MDD5, NOTES: 02/15/17 2130 TAKING OXYCODONE HCL 15 MG TABLET 1 TABLET ORALLY Q6H PRN MDD4, NOTES: 02/15/17 1400 NOT-TAKING LISINOPRIL 10 MG TABLET 1 TABLET ORALLY ONCE A DAY NOT-TAKING VALIUM 10 MG TABLET 2 ORALLY 2 TAB 1HR PRE PROC. MDD2, NOTES: 06/28/16 0815 NOT-TAKING VALIUM 10 MG TABLET 1 ORALLY 1 TAB 1HR PRE PROC. MDD1 NOT-TAKING SUMATRIPTAN SUCCINATE 50 MG TABLET 1 TABLET NEEDED ORALLY AT THE ONSET OF MIGRAINE NOT-TAKING BLOOD PRESSURE MONITOR/L CUFF - MISCELLANEOUS DIRECTED I10 DAILY MEDICATION LIST REVIEWED AND RECONCILED WITH THE PATIENT PAST MEDICAL HISTORY MIGRAINES VENTRICULAR-SEPTAL DEFECT HX SEIZURES AFTER CRANIOTOMY FOR ARACHNOID CYST IN 2006 ANGIOECTASIA OF TERMINAL ILEUM, THERMAL THERAPY 01/17 [place], H/O GI BLEEDING WITH ACUTE BLOOD LOSS ANEMIA REQUIRING [facility] HOSPITALIZATIONS, AND TRANSFUSIONS, NONE SINCE THERMAL THERAPY CKD 3, BASELINES SCR 1.4 - 1.6 DYSLIPIDEMIA WITH LOW HDL 12/21 23 UNBILICAL HERNIA ALLERGIES NSAID: ELEVATED CREATININE: CONTRAINDICATION SOCIAL HISTORY GENERAL: PAIN CLINIC PFS, CLERGY, PUBLIC HEALTH REFERRALS CLERGY REFERRAL NEEDED?NO WAS THE PROVIDER NOTIFIED OF ANY PERTINENT INFO?NO PFS REFERRAL NEEDED?NO PUBLIC HEALTH REFERRAL NEEDED?NO PATIENT: ____. REVIEW OF SYSTEMS CONSTITUTIONAL: ANY CHANGE IN YOUR MEDICAL CONDITION? NO . CHILLS NO . FEVER NO . INFECTION: DO YOU HAVE NEW INFECTIONS? NO . DO YOU HAVE HISTORY OF MRSA? NO . MUSCULOSKELETAL: ANY NEW PATTERNS OF PAIN OR NUMBNESS? NO . GASTROENTEROLOGY: ANY NEW CHANGE IN BOWEL CONTROL? NO . GENITOURINARY: ANY NEW CHANGE IN BLADDER CONTROL? NO . IS THERE A CHANCE YOU COULD BE ? NO . HEMATOLOGY/LYMPH: DO YOU TAKE ANY BLOOD THINNERS? (FOR EXAMPLE- COUMADIN, PLAVIX, AGGRENOX, PLATEL, PRADAXA, OR XARELTO) NO . WHEN WAS YOUR LAST DOSE? DATE: TIME: . NEUROLOGY: HAVE YOU FALLEN IN THE PAST 6 MONTHS? NO . ANY NEW EXTREMITY NUMBNESS OR WEAKNESS? NO . CARDIOLOGY: DO YOU HAVE A PACEMAKER OR DEFIBRILLATOR? NO . RESPIRATORY: HAVE YOU BEEN SICK IN THE PAST WEEK? NO . FEVER NO . FLU LIKE SYMPTOMS? NO . COUGH NO . INTEGUMENTARY: DO YOU HAVE ANY RASHES OR OPEN SORES? NO . ALLERGIC/IMMUNO: ARE YOU ALLERGIC TO SHELLFISH OR IV DYE? NO . ANY NEW ALLERGIES? NO . PSYCHIATRIC: DO YOU HAVE THOUGHTS OF HURTING YOURSELF OR SOMEONE ELSE? NO . ARE YOU ABUSED, NEGLECTED, OR IN AN UNSAFE ENVIRONMENT? NO . ENDOCRINOLOGY: ARE YOU DIABETIC? NO . OTHER: DO YOU NEED ANY PRESCRIPTIONS? NO . IF YES, PLEASE LIST: ____ . ANY NEW PROBLEMS WITH YOUR MEDICATIONS? NO . WHEN DID YOU LAST EAT? ____02/15/172199 . WHEN DID YOU LAST DRINK? ____02/15/172199 . WHAT DID YOU LAST DRINK? ____ORANGE JUICE . NAME OF PERSON DRIVING YOU HOME? ____SISTER PEARL . DO YOU HAVE ANY OTHER QUESTIONS OR CONCERNS NO . REVIEWED BY: PROVIDER: . VITAL SIGNS WT 207.4 LBS, HT 74 IN, BMI 26.63 INDEX, BP 133/81 MM HG, HR 68 /MIN, RR 18 /MIN, TEMP 97.4 F, OXYGEN SAT % 92%, SAFE IN ENV? (Y/N) YES, NA INITIALS NM 10:38, REVIEWED BY: INO. ASSESSMENTS POSTLAMINECTOMY SYNDROME, NOT ELSEWHERE CLASSIFIED - M96.1 (PRIMARY) PROCEDURES PN CAUDAL EPIDURALS PRE PROCEDURE DIAGNOSIS LUMBAR POST LAMINECTOMY PAIN SYNDROME POST PROCEDURE DIAGNOSIS LUMBAR POST LAMINECTOMY PAIN SYNDROME PROCEDURE CAUDAL EPIDURAL STEROID INJECTION UNDER FLUOROSCOPIC GUIDANCE SURGEON DR. RADAMES MCKEON MATERIAL MOVERS NONE ANESTHESIA LOCAL PRE PROCEDURE NOTE THE PATIENT HAS HISTORY OF CHRONIC LOW BACK PAIN. I EVALUATE THE PATIENT AND REVIEWED THE CHART. I WENT OVER THE RISKS, ALTERNATIVES, AND BENEFITS ASSOCIATED WITH THIS PROCEDURE. THE PATIENT WOULD LIKE TO PROCEED AND GIVE CONSENT TO PERFORMED THE PROCEDURE. THE PATIENT DENIES UNEXPLAINABLE WEIGHT LOSS, FEVER, CHILLS, OR NEW CHANGES IN URINARY OR BOWEL CONTROL DESCRIPTION OF PROCEDURE THE PATIENT WAS BROUGHT TO THE PROCEDURE ROOM AND PLACED IN THE PRONE POSITION. THE LUMBOSACRAL AREA WAS CLEANED WITH BETADINE SOLUTION AND DRAPED ASEPTICALLY. THE PROCEDURE WAS DONE UNDER STERILE CONDITIONS. I CHECKED LATERALITY AND THE LEVEL WHERE THE PROCEDURE WAS GOING TO BE PERFORMED WITH THE PATIENT AND THE SUPPORTING STAFF AT THE MOMENT OF THE TIME OUT IN THE PROCEDURE ROOM. UNDER FLUOROSCOPIC GUIDANCE, THE TARGET POINT WAS SELECTED AT THE EPIDURAL SPACE BELOW THE SACROCOCCYGEAL LIGAMENT. LIDOCAINE 0.5% WAS USE TO NUMB THE SKIN AND THE SUBCUTANEOUS TISSUE BELOW IT. AN EPIDURAL TUOHY NEEDLE, 17-GAUGE, WAS ADVANCED UNDER FLUOROSCOPIC GUIDANCE AND FOLLOWING PATIENT FEEDBACK UNTIL THE EPIDURAL SPACE WAS REACHED 6 CM DEEP INTO THE SKIN BY THE LOSS OF RESISTANCE TECHNIQUE. ISOVUE M DYE 30%, 0.25 ML, WAS INJECTED SHOWING ADEQUATE SPREAD OF THE DYE. THEN, A SOLUTION OF 6 ML OF NORMAL SALINE WITH DEPO-MEDROL 60 MG WAS INJECTED SLOWLY FOLLOWING THE PATIENT FEEDBACK. THERE WAS NO EVIDENCE OF BLOOD, PARESTHESIA OR CEREBROSPINAL FLUID DURING THE PROCEDURE. THE PATIENT WAS SENT TO THE RECOVERY ROOM. THE PATIENT WAS MOVING THE EXTREMITIES AND DOING WELL. THERE WAS NO COMPLICATION DURING THE PROCEDURE. FLUOROSCOPY TIME WAS 8 SECONDS POST PROCEDURE NOTE THE PATIENT WILL BE SEEN IN A FOLLOW UP IN THE NEXT FEW WEEKS. INSTRUCTIONS WERE GIVEN, QUESTIONS WERE ANSWERED, AND THE PATIENT EXPRESSED UNDERSTANDING AND AGREES WITH THE PLAN. INSTRUCTIONS WERE GIVEN, QUESTIONS WERE ANSWERED, PATIENT REPORTS UNDERSTANDING AND AGREES WITH THE PLAN. I, HEATHER CONDE, DOCUMENTED THE ABOVE INFORMATION ACTING A SCRIBE FOR DR. MCKEON. I HAVE REVIEWED THE ABOVE DOCUMENT, WRITTEN BY HEATHER SALAZAR AND I VERIFY THAT IT IS ACCURATE DIAGNOSTIC IMAGING [facility] FLUORO GUIDE SPINE INJECTION (PAIN)[id number] PROCEDURE CODES 02191 LUMBAR/SACRAL W/ IMAGING 6045F RADXPS IN END [id number] PXD DISPOSITION & COMMUNICATION FOLLOW UP 3 WEEKS ELECTRONICALLY SIGNED BY RADAMES MCKEON MD ON 02/27/2017 AT 04:47 PM EDT DISCLAIMER : THIS IS A VISIT SUMMARY EXTRACTED FROM THE [employer] CHART. IT IS NOT A COPY OF THE [employer] PROGRESS NOTE. SHAYY
== END ==
LOC: M PAIN 10:20
PROVIDERS: ATTEND Anesthesiology
DX: M96.1 Postlaminectomy syndrome, not elsewhere classified (principal); Q21.0 Ventricular septal defect; N18.3 Chronic kidney disease, stage 3 (moderate); E78.5 Hyperlipidemia, unspecified; Z88.6 Allergy status to analgesic agent; Z86.69 Personal history of other diseases of the nervous system and sense organs; Z79.891 Long term (current) use of opiate analgesic; Z79.899 Other long term (current) drug therapy
CPT/HCPCS: 62323; J1030; Q9967

== ENCOUNTER → 2017-04-11 | Outpatient (CLI) | payer OTHER ==
[~2017-04-11] MED LIST changes: -ISOVUE-M 300 61% 15ML VIAL (Q9967) As Ordered ONE; -LIDOCAINE 1% SDV INJ 30 ML VIAL As Ordered ONE; -diazePAM 5 MG TAB As Ordered ONE; -methylPREDNISolone SUSP 40 MG/ML (DEPO-medrol) VIAL (J1030) As Ordered ONE; -oxyCODONE 5MG TAB As Ordered ONE
--- NOTE | 2017-04-11 23:37 | ECWPNPC ---
PATIENT NAME: EVARISTO HUDSON : 1965 GENDER: MALE VISIT DATE: 04/11/2017 DISCHARGE DATE: 04/11/17 09 VISIT LOCKED DATE TIME: PHYSICIAN: KIANNA DURON PHYSICIAN PAGER NO: [phone] RESOURCE: KIANNA DURON REASON FOR APPOINTMENT 1. POST PROCEDURE HISTORY OF PRESENT ILLNESS HISTORY OF PRESENT ILLNESS: HERE FOR POST PROCEDURE F/U.HAD CAUDAL EPIDURAL INJECTION ON 02-16-17 AND REPORTS APROXIMATLEY 3 WEEKS IMPROVEMENT IN PAIN POST PROCEDURE.PAIN RETURNED TO BASELINE.RATING PAIN VAS 7/10.USING OXYCODONE 15MG PRN FOR PAIN WITH SOME IMPROVEMENT.USING SOMA PRN FOR PAIN. PAIN THE PATIENT DESCRIBES THE PAIN... THE PATIENT DESCRIBES THE PAIN... FALL RISK SCREENING: SCREENING :NO FALLS IN THE PAST YEAR CURRENT MEDICATIONS TAKING OXYCODONE HCL 15 MG TABLET 1 TABLET ORALLY Q6H PRN MDD4, NOTES: 02/15/17 1400 NOT-TAKING SOMA 350 MG TABLET 1 TABLET NEEDED ORALLY Q8H PRN MDD3, NOTES: 02/15/17 2130 NOT-TAKING GABAPENTIN 300 MG CAPSULE 2 CAPSULE BRENNAN,1 MIDDAY,2 IN PM ORALLY THREE TIMES A DAY MDD5, NOTES: 02/15/17 2130 NOT-TAKING LISINOPRIL 10 MG TABLET 1 TABLET ORALLY ONCE A DAY NOT-TAKING VALIUM 10 MG TABLET 2 ORALLY 2 TAB 1HR PRE PROC. MDD2, NOTES: 06/28/16 0815 NOT-TAKING VALIUM 10 MG TABLET 1 ORALLY 1 TAB 1HR PRE PROC. MDD1 NOT-TAKING SUMATRIPTAN SUCCINATE 50 MG TABLET 1 TABLET NEEDED ORALLY AT THE ONSET OF MIGRAINE NOT-TAKING BLOOD PRESSURE MONITOR/L CUFF - MISCELLANEOUS DIRECTED I10 DAILY MEDICATION LIST REVIEWED AND RECONCILED WITH THE PATIENT PAST MEDICAL HISTORY MIGRAINES VENTRICULAR-SEPTAL DEFECT HX SEIZURES AFTER CRANIOTOMY FOR ARACHNOID CYST IN 2006 ANGIOECTASIA OF TERMINAL ILEUM, THERMAL THERAPY 01/17 [place], H/O GI BLEEDING WITH ACUTE BLOOD LOSS ANEMIA REQUIRING [facility]TP HOSPITALIZATIONS, AND TRANSFUSIONS, NONE SINCE THERMAL THERAPY CKD 3, BASELINES SCR 1.4 - 1.6 DYSLIPIDEMIA WITH LOW HDL 12/21 24 UNBILICAL HERNIA ALLERGIES NSAID: ELEVATED CREATININE: CONTRAINDICATION SURGICAL HISTORY CRANIOTOMY WITH HX OF ARACHNOID CYST 2006 NO PERSONAL OR FHX OF SEVERE REACTION TO ANESTHESIA EGD/COLONOSCOPY/CAPSULE ENDOSCOPY FOR GI BLEED--NEG BX DR SALINAS; HAD RECTAL VESSEL CLIPPED 2008 EGD/COLONOSCOPY--NL DR SALINAS 09/2011 EGD/COLONOSCOPY--MILD ESOPHAGITIS, BX NEG FOR BARRETTS; DR PRISCILA MARES [place] 2011 HOSPITALIZATION/MAJOR DIAGNOSTIC PROCEDURE LOWER GI BLEEDING, [facility] HOSPITALIZATIONS [phone] REVIEW OF SYSTEMS CONSTITUTIONAL: ANY CHANGE IN YOUR MEDICAL CONDITION? NO . CHILLS NO . FEVER NO . INFECTION: DO YOU HAVE NEW INFECTIONS? NO . DO YOU HAVE HISTORY OF MRSA? NO . MUSCULOSKELETAL: ANY NEW PATTERNS OF PAIN OR NUMBNESS? YES, NOPT STATES CAUDAL EPIDURAL DONE 02/16/17. PT STATES PAIN WAS 6-7/10 PRE PROCEDURE. POST PROCEDURE, PAIN WAS 2-3/10, SLOWLY CREDEPING TO 6-7/10. . GASTROENTEROLOGY: ANY NEW CHANGE IN BOWEL CONTROL? NO . GENITOURINARY: ANY NEW CHANGE IN BLADDER CONTROL? NO . IS THERE A CHANCE YOU COULD BE ? NO . HEMATOLOGY/LYMPH: DO YOU TAKE ANY BLOOD THINNERS? (FOR EXAMPLE- COUMADIN, PLAVIX, AGGRENOX, PLATEL, PRADAXA, OR XARELTO) NO . WHEN WAS YOUR LAST DOSE? DATE: TIME: . NEUROLOGY: HAVE YOU FALLEN IN THE PAST 6 MONTHS? NO . ANY NEW EXTREMITY NUMBNESS OR WEAKNESS? NO . CARDIOLOGY: DO YOU HAVE A PACEMAKER OR DEFIBRILLATOR? NO . RESPIRATORY: HAVE YOU BEEN SICK IN THE PAST WEEK? NO . FEVER NO . FLU LIKE SYMPTOMS? NO . COUGH NO . INTEGUMENTARY: DO YOU HAVE ANY RASHES OR OPEN SORES? NO . ALLERGIC/IMMUNO: ARE YOU ALLERGIC TO SHELLFISH OR IV DYE? NO . ANY NEW ALLERGIES? NO . PSYCHIATRIC: DO YOU HAVE THOUGHTS OF HURTING YOURSELF OR SOMEONE ELSE? NO . ARE YOU ABUSED, NEGLECTED, OR IN AN UNSAFE ENVIRONMENT? NO . ENDOCRINOLOGY: ARE YOU DIABETIC? NO . OTHER: DO YOU NEED ANY PRESCRIPTIONS? NO . IF YES, PLEASE LIST: ____ . ANY NEW PROBLEMS WITH YOUR MEDICATIONS? NO . WHEN DID YOU LAST EAT? ____ . WHEN DID YOU LAST DRINK? ____ . WHAT DID YOU LAST DRINK? ____ . NAME OF PERSON DRIVING YOU HOME? ____ . DO YOU HAVE ANY OTHER QUESTIONS OR CONCERNS NO . REVIEWED BY: PROVIDER: KIANNA MOE . VITAL SIGNS WT 268.0 LBS, HT 74 IN, BMI 34.41 INDEX, BP 148/90 MM HG, HR 77 /MIN, RR 16 /MIN, TEMP 96.9 F, OXYGEN SAT % 96%, SAFE IN ENV? (Y/N) Y, NA INITIALS TL 0933, REVIEWED BY: [place]. EXAMINATION GENERAL EXAMINATION: LUNGS:LUNG SOUNDS ARE CLEAR. HEART:HEART RATE REGULAR. HEART:HEART RATE REGULAR, 2/6PAN SYSTOLIC MURMUR. MUSCULOSKELETAL:*, MUSCLE STRENGTH TESTING 5/5 RIGHT AND 3/5 LEFTPALPATION: NEGATIVE FOR PAIN OVER L/S SPINE. POSITIVE FOR PAIN OVER L/S PARSPINALS.SPECIFIC POINT TENDERNESS OVER BILAT. FACETS. DIAGNOSTIC:MRI L/S PUGRX-[id number]-REVIEWED. ASSESSMENTS LUMBOSACRAL SPONDYLOLYSIS - M43.07 (PRIMARY) CHRONIC PRESCRIPTION OPIATE USE - Z79.891 TREATMENT LUMBOSACRAL SPONDYLOLYSIS CONTINUE OXYCODONE HCL TABLET, 15 MG, 1 TABLET, ORALLY, Q6H PRN MDD4, NOTES: 02/15/17 1400 CONTINUE SOMA TABLET, 350 MG, 1 TABLET NEEDED, ORALLY, Q8H PRN MDD3, NOTES: 02/15/17 2130 NOTES: ISTOP REGISTRY REVIEWED AND DEMNOSTRATES COMPLLIANCE. BRINGS IN MEDICATIONS WHICH IS APPROPRIATE FOR WHAT WAS DISPENSED. RECENT URINE TOXICOLOGY REVIEWED. NO UNAUTHORIZED MEDICATIONS. NO ILLICIT SUBSTANCES AND PRESCRIBED MEDICATIONS WERE PRESENT. , RISKS AND BENEFITS OF NARCOTIC/OPIOD MEDICATIONS WERE REVIEWED WITH PATIENT - THIS INCLUDES BUT IS NOT LIMITED TO RISK OF DEPENDANCE/DEVELOPMENT OF ADDICTION, MOOD DISTURBANCE AND DEPRESSION, OSTEOPOROSIS, HORMONAL AND LABIDAL CHANGES, RESPIRATORY DEPRESSION AND . PATIENT IS ADVISED NOT TO DRIVE WHILE ON THESE MEDICATIONS, I AM GOING TO REQUEST A CAUDAL EPIDURAL STEROID INJECTION UNDER FLUOROSCOPIC GUIDANCE. PROCEDURE CODES FA211 ESTABILISHED PATIENT [facility] CHARGE DISPOSITION & COMMUNICATION FOLLOW UP 2 WEEKS (REASON: I AM GOING TO REQUEST A CAUDAL EPIDURAL STEROID INJECTION UNDER FLUOROSCOPIC GUIDANCE) ELECTRONICALLY SIGNED BY PAYAL GONZALES ON 04/11/2017 AT 01:23 PM EDT DISCLAIMER : THIS IS A VISIT SUMMARY EXTRACTED FROM THE [employer] CHART. IT IS NOT A COPY OF THE [employer] PROGRESS NOTE. [facility]
== END ==
LOC: M PAIN 09:00
PROVIDERS: ATTEND Nurse Practitioner Family
DX: G89.29 Other chronic pain (principal); M43.07 Spondylolysis, lumbosacral region; G43.909 Migraine, unspecified, not intractable, without status migrainosus; R56.9 Unspecified convulsions; N18.3 Chronic kidney disease, stage 3 (moderate); K42.9 Umbilical hernia without obstruction or gangrene; Z88.6 Allergy status to analgesic agent; Z79.891 Long term (current) use of opiate analgesic

== ENCOUNTER → 2017-04-15 | Outpatient (CLI) | payer OTHER ==
[~2017-04-15] MED LIST changes: +ISOVUE-M 300 61% 15ML VIAL (Q9967) As Ordered ONE; +LIDOCAINE 1% SDV INJ 30 ML VIAL As Ordered ONE; +MIDAZOLAM INJ 2 MG/2 ML VIAL (J2250) As Ordered ONE; +diazePAM 5 MG TAB As Ordered ONE; +fentaNYL 100 MCG/2 ML INJECTION (J3010) As Ordered ONE; +methylPREDNISolone SUSP 40 MG/ML (DEPO-medrol) VIAL (J1030) As Ordered ONE; +oxyCODONE 5MG TAB As Ordered ONE
--- NOTE | 2017-04-15 14:07 | REP ---
PARTIAL COCCYX SERIES: Two views. HISTORY: Caudal epidural steroid injection. 17 seconds of fluoroscopy time is reported. FINDINGS: A sequence of two last image hold fluoroscopic spot radiographs of the sacrococcygeal region document needle position and contrast injection associated with injection procedure. Signed by Pedrito Genao MD 04/15/2017 04:27 P
--- NOTE | 2017-04-24 23:35 | ECWPNPC ---
PATIENT NAME: EVARISTO HUDSON : 1965 GENDER: MALE VISIT DATE: 04/15/2017 DISCHARGE DATE: 04/15/17 1354 VISIT LOCKED DATE TIME: PHYSICIAN: RADAMES MCKEON PHYSICIAN PAGER NO: [phone] RESOURCE: RADAMES MCKEON REASON FOR APPOINTMENT 1. CAUDAL EPIDURAL STEROID INJECTION HISTORY OF PRESENT ILLNESS HISTORY OF PRESENT ILLNESS: PAIN THE PATIENT DESCRIBES THE PAIN... FALL RISK SCREENING: SCREENING :NO FALLS IN THE PAST YEAR CURRENT MEDICATIONS TAKING OXYCODONE HCL 15 MG TABLET 1 TABLET ORALLY Q6H PRN MDD4, NOTES: 04/14/171999 TAKING SOMA 350 MG TABLET 1 TABLET NEEDED ORALLY Q8H PRN MDD3, NOTES: 04/14/171999 NOT-TAKING GABAPENTIN 300 MG CAPSULE 2 CAPSULE BRENNAN,1 MIDDAY,2 IN PM ORALLY THREE TIMES A DAY MDD5, NOTES: 02/15/17 2130 NOT-TAKING LISINOPRIL 10 MG TABLET 1 TABLET ORALLY ONCE A DAY NOT-TAKING VALIUM 10 MG TABLET 2 ORALLY 2 TAB 1HR PRE PROC. MDD2, NOTES: 06/28/16 0815 NOT-TAKING VALIUM 10 MG TABLET 1 ORALLY 1 TAB 1HR PRE PROC. MDD1 NOT-TAKING SUMATRIPTAN SUCCINATE 50 MG TABLET 1 TABLET NEEDED ORALLY AT THE ONSET OF MIGRAINE NOT-TAKING BLOOD PRESSURE MONITOR/L CUFF - MISCELLANEOUS DIRECTED I10 DAILY MEDICATION LIST REVIEWED AND RECONCILED WITH THE PATIENT PAST MEDICAL HISTORY MIGRAINES VENTRICULAR-SEPTAL DEFECT HX SEIZURES AFTER CRANIOTOMY FOR ARACHNOID CYST IN 2006 ANGIOECTASIA OF TERMINAL ILEUM, THERMAL THERAPY 01/17 [place], H/O GI BLEEDING WITH ACUTE BLOOD LOSS ANEMIA REQUIRING [facility] HOSPITALIZATIONS, AND TRANSFUSIONS, NONE SINCE THERMAL THERAPY CKD 3, BASELINES SCR 1.4 - 1.6 DYSLIPIDEMIA WITH LOW HDL 12/21 23 UNBILICAL HERNIA ALLERGIES NSAID: ELEVATED CREATININE: CONTRAINDICATION SURGICAL HISTORY CRANIOTOMY WITH HX OF ARACHNOID CYST 2006 NO PERSONAL OR FHX OF SEVERE REACTION TO ANESTHESIA EGD/COLONOSCOPY/CAPSULE ENDOSCOPY FOR GI BLEED--NEG BX DR SALINAS; HAD RECTAL VESSEL CLIPPED 2008 EGD/COLONOSCOPY--NL DR SALINAS 09/2011 EGD/COLONOSCOPY--MILD ESOPHAGITIS, BX NEG FOR BARRETTS; DR PRISCILA MARES [place] 2011 SOCIAL HISTORY GENERAL: TOBACCO USE ARE YOU A:NONSMOKER PAIN CLINIC PFS, CLERGY, PUBLIC HEALTH REFERRALS CLERGY REFERRAL NEEDED?NO WAS THE PROVIDER NOTIFIED OF ANY PERTINENT INFO?NO PFS REFERRAL NEEDED?NO PUBLIC HEALTH REFERRAL NEEDED?NO PATIENT: ____. HOSPITALIZATION/MAJOR DIAGNOSTIC PROCEDURE LOWER GI BLEEDING, [facility] HOSPITALIZATIONS [phone] REVIEW OF SYSTEMS CONSTITUTIONAL: ANY CHANGE IN YOUR MEDICAL CONDITION? NO . CHILLS NO . FEVER NO . INFECTION: DO YOU HAVE NEW INFECTIONS? NO . DO YOU HAVE HISTORY OF MRSA? NO . MUSCULOSKELETAL: ANY NEW PATTERNS OF PAIN OR NUMBNESS? NO . GASTROENTEROLOGY: ANY NEW CHANGE IN BOWEL CONTROL? NO . GENITOURINARY: ANY NEW CHANGE IN BLADDER CONTROL? NO . IS THERE A CHANCE YOU COULD BE ? NO . HEMATOLOGY/LYMPH: DO YOU TAKE ANY BLOOD THINNERS? (FOR EXAMPLE- COUMADIN, PLAVIX, AGGRENOX, PLATEL, PRADAXA, OR XARELTO) NO . WHEN WAS YOUR LAST DOSE? DATE: TIME: . NEUROLOGY: HAVE YOU FALLEN IN THE PAST 6 MONTHS? NO . ANY NEW EXTREMITY NUMBNESS OR WEAKNESS? NO . CARDIOLOGY: DO YOU HAVE A PACEMAKER OR DEFIBRILLATOR? NO . RESPIRATORY: HAVE YOU BEEN SICK IN THE PAST WEEK? NO . FEVER NO . FLU LIKE SYMPTOMS? NO . COUGH NO . INTEGUMENTARY: DO YOU HAVE ANY RASHES OR OPEN SORES? NO . ALLERGIC/IMMUNO: ARE YOU ALLERGIC TO SHELLFISH OR IV DYE? NO . ANY NEW ALLERGIES? NO . PSYCHIATRIC: DO YOU HAVE THOUGHTS OF HURTING YOURSELF OR SOMEONE ELSE? NO . ARE YOU ABUSED, NEGLECTED, OR IN AN UNSAFE ENVIRONMENT? NO . ENDOCRINOLOGY: ARE YOU DIABETIC? NO . OTHER: DO YOU NEED ANY PRESCRIPTIONS? NO . IF YES, PLEASE LIST: ____ . ANY NEW PROBLEMS WITH YOUR MEDICATIONS? NO . WHEN DID YOU LAST EAT? 2099 . WHEN DID YOU LAST DRINK? 2099 . WHAT DID YOU LAST DRINK? NELIDA JEREMY . NAME OF PERSON DRIVING YOU HOME? PEARL HUDSON . DO YOU HAVE ANY OTHER QUESTIONS OR CONCERNS NO . REVIEWED BY: PROVIDER: . VITAL SIGNS WT 97.6 LBS, HT 74 IN, BMI 12.53 INDEX, BP 146/85 MM HG, HR 62 /MIN, RR 16 /MIN, TEMP 97.6 F, OXYGEN SAT % 96%, NA INITIALS TL 1119, REVIEWED BY: LS. ASSESSMENTS POSTLAMINECTOMY SYNDROME, NOT ELSEWHERE CLASSIFIED - M96.1 (PRIMARY) PROCEDURES PN CAUDAL EPIDURALS PRE PROCEDURE DIAGNOSIS LUMBAR POST LAMINECTOMY PAIN SYNDROME POST PROCEDURE DIAGNOSIS LUMBAR POST LAMINECTOMY PAIN SYNDROME PROCEDURE CAUDAL EPIDURAL STEROID INJECTION UNDER FLUOROSCOPIC GUIDANCE. SURGEON DR. RADAMES MCKEON MEMORY CARE PROGRAM RESIDENT NONE ANESTHESIA LOCAL PRE PROCEDURE NOTE THE PATIENT HAS HISTORY OF CHRONIC LOW BACK PAIN. I EVALUATE THE PATIENT AND REVIEWED THE CHART. I WENT OVER THE RISKS, ALTERNATIVES, AND BENEFITS ASSOCIATED WITH THIS PROCEDURE. PATIENT WANTS IV SEDATION DUE TO THE DISCOMFORT, ANXIETY, AND PAIN THIS PROCEDURE WILL CAUSE HIM. THE PATIENT WOULD LIKE TO PROCEED AND GIVE CONSENT TO PERFORMED THE PROCEDURE WITH IV SEDATION. THE PATIENT DENIES UNEXPLAINABLE WEIGHT LOSS, FEVER, CHILLS, OR NEW CHANGES IN URINARY OR BOWEL CONTROL. DESCRIPTION OF PROCEDURE THE PATIENT WAS BROUGHT TO THE PROCEDURE ROOM AND PLACED IN THE PRONE POSITION. THE LUMBOSACRAL AREA WAS CLEANED WITH BETADINE SOLUTION AND DRAPED ASEPTICALLY. THE PROCEDURE WAS DONE UNDER STERILE CONDITIONS. I CHECKED LATERALITY AND THE LEVEL WHERE THE PROCEDURE WAS GOING TO BE PERFORMED WITH THE PATIENT AND THE SUPPORTING STAFF AT THE MOMENT OF THE TIME OUT IN THE PROCEDURE ROOM. UNDER FLUOROSCOPIC GUIDANCE, THE TARGET POINT WAS SELECTED AT THE EPIDURAL SPACE BELOW THE SACROCOCCYGEAL LIGAMENT. LIDOCAINE 0.5% WAS USE TO NUMB THE SKIN AND THE SUBCUTANEOUS TISSUE BELOW IT. AN EPIDURAL TUOHY NEEDLE, 17-GAUGE, WAS ADVANCED UNDER FLUOROSCOPIC GUIDANCE AND FOLLOWING PATIENT FEEDBACK UNTIL THE EPIDURAL SPACE WAS REACHED 6 CM DEEP INTO THE SKIN BY THE LOSS OF RESISTANCE TECHNIQUE. ISOVUE M DYE 30%, 0.25 ML, WAS INJECTED SHOWING ADEQUATE SPREAD OF THE DYE. THEN, A SOLUTION OF 6 ML OF NORMAL SALINE WITH DEPO-MEDROL 60 MG WAS INJECTED SLOWLY FOLLOWING THE PATIENT FEEDBACK. THERE WAS NO EVIDENCE OF BLOOD, PARESTHESIA OR CEREBROSPINAL FLUID DURING THE PROCEDURE. PATIENT RECEIVED VERSED 2 MG AND FENTANYL 100 MCG IV DIVIDED DOSES. FACE TO FACE TIME WAS 11 MINUTES. THE PATIENT WAS SENT TO THE RECOVERY ROOM. THE PATIENT WAS MOVING THE EXTREMITIES AND DOING WELL. THERE WAS NO COMPLICATION DURING THE PROCEDURE. FLUOROSCOPY TIME WAS 17 SECONDS POST PROCEDURE NOTE THE PATIENT WILL BE SEEN IN A FOLLOW UP IN THE NEXT FEW WEEKS. INSTRUCTIONS WERE GIVEN, QUESTIONS WERE ANSWERED, AND THE PATIENT EXPRESSED UNDERSTANDING AND AGREES WITH THE PLAN. I, FRANCISCA KENDALL, DOCUMENTED THE ABOVE INFORMATION ACTING A SCRIBE FOR DR. MCKEON. I HAVE REVIEWED THE ABOVE DOCUMENT, WRITTEN BY FRANCISCA SALAZAR AND I VERIFY THAT IT IS ACCURATE DIAGNOSTIC IMAGING [facility] FLUORO GUIDE SPINE INJECTION (PAIN)[id number] PROCEDURE CODES 66856 LUMBAR/SACRAL W/ IMAGING 6045F RADXPS IN END [id number] PXD 56931 MOD SED SAME PHYS/QHP 5/>YRS DISPOSITION & COMMUNICATION FOLLOW UP 3 WEEKS ELECTRONICALLY SIGNED BY RADAMES MCKEON MD ON 04/24/2017 AT 03:17 PM EDT DISCLAIMER : THIS IS A VISIT SUMMARY EXTRACTED FROM THE Mobile Location, [employer] CHART. IT IS NOT A COPY OF THE Mobile Location, [employer] PROGRESS NOTE. [facility]
== END ==
LOC: M PAIN 11:00
PROVIDERS: ATTEND Anesthesiology
DX: M96.1 Postlaminectomy syndrome, not elsewhere classified (principal); G43.909 Migraine, unspecified, not intractable, without status migrainosus; R56.9 Unspecified convulsions; N18.3 Chronic kidney disease, stage 3 (moderate); K42.9 Umbilical hernia without obstruction or gangrene; Z79.891 Long term (current) use of opiate analgesic
CPT/HCPCS: 62323; 99152; J1030; J2250; J3010; Q9967

== ENCOUNTER → 2017-05-20 | Outpatient (CLI) | payer OTHER ==
[~2017-05-20] MED LIST changes: -ISOVUE-M 300 61% 15ML VIAL (Q9967) As Ordered ONE; -LIDOCAINE 1% SDV INJ 30 ML VIAL As Ordered ONE; -MIDAZOLAM INJ 2 MG/2 ML VIAL (J2250) As Ordered ONE; -PERC10TA17 PO; +PERC10TA26 PO; -TOPA50TA7 PO; +TOPA50TA8 PO; +VOLT1GEL15 TD; -VOLT1GEL24 TD; -diazePAM 5 MG TAB As Ordered ONE; -fentaNYL 100 MCG/2 ML INJECTION (J3010) As Ordered ONE; -methylPREDNISolone SUSP 40 MG/ML (DEPO-medrol) VIAL (J1030) As Ordered ONE; -oxyCODONE 5MG TAB As Ordered ONE
--- NOTE | 2017-05-20 23:52 | ECWPNPC ---
PATIENT NAME: EVARISTO HUDSON : 1965 GENDER: MALE VISIT DATE: 05/20/2017 DISCHARGE DATE: 05/20/17 1025 VISIT LOCKED DATE TIME: PHYSICIAN: KIANNA DURON PHYSICIAN PAGER NO: [phone] RESOURCE: KIANNA DURON REASON FOR APPOINTMENT 1. MEDS HISTORY OF PRESENT ILLNESS HISTORY OF PRESENT ILLNESS: HERE FOR POST PROCEDURE F/U.HAD CAUDAL EPIDURAL ON 04-15-17.REPORTS NO IMPROVEMENT POST PROCEDURE.RATING PAIN VAS 8/10.DESCRIBES PAIN CONSTANT SHARP AND THROBBING.DESCRIBES PAIN CONSTANT AND SHARP. PAIN THE PATIENT DESCRIBES THE PAIN... FALL RISK SCREENING: SCREENING :NO FALLS IN THE PAST YEAR CURRENT MEDICATIONS TAKING OXYCODONE HCL 15 MG TABLET 1 TABLET ORALLY Q6H PRN MDD4 NOT-TAKING SOMA 350 MG TABLET 1 TABLET NEEDED ORALLY Q8H PRN MDD3 NOT-TAKING GABAPENTIN 300 MG CAPSULE 2 CAPSULE BRENNAN,1 MIDDAY,2 IN PM ORALLY THREE TIMES A DAY MDD5, NOTES: 02/15/17 2130 NOT-TAKING LISINOPRIL 10 MG TABLET 1 TABLET ORALLY ONCE A DAY NOT-TAKING VALIUM 10 MG TABLET 2 ORALLY 2 TAB 1HR PRE PROC. MDD2, NOTES: 06/28/16 0815 NOT-TAKING VALIUM 10 MG TABLET 1 ORALLY 1 TAB 1HR PRE PROC. MDD1 NOT-TAKING SUMATRIPTAN SUCCINATE 50 MG TABLET 1 TABLET NEEDED ORALLY AT THE ONSET OF MIGRAINE NOT-TAKING BLOOD PRESSURE MONITOR/L CUFF - MISCELLANEOUS DIRECTED I10 DAILY MEDICATION LIST REVIEWED AND RECONCILED WITH THE PATIENT PAST MEDICAL HISTORY MIGRAINES VENTRICULAR-SEPTAL DEFECT HX SEIZURES AFTER CRANIOTOMY FOR ARACHNOID CYST IN 2006 ANGIOECTASIA OF TERMINAL ILEUM, THERMAL THERAPY 01/17 [place], H/O GI BLEEDING WITH ACUTE BLOOD LOSS ANEMIA REQUIRING [facility] HOSPITALIZATIONS, AND TRANSFUSIONS, NONE SINCE THERMAL THERAPY CKD 3, BASELINES SCR 1.4 - 1.6 DYSLIPIDEMIA WITH LOW HDL 12/21 23 UNBILICAL HERNIA ALLERGIES NSAID: ELEVATED CREATININE: CONTRAINDICATION SURGICAL HISTORY CRANIOTOMY WITH HX OF ARACHNOID CYST 2006 NO PERSONAL OR FHX OF SEVERE REACTION TO ANESTHESIA EGD/COLONOSCOPY/CAPSULE ENDOSCOPY FOR GI BLEED--NEG BX DR SALINAS; HAD RECTAL VESSEL CLIPPED 2008 EGD/COLONOSCOPY--NL DR SALINAS 09/2011 EGD/COLONOSCOPY--MILD ESOPHAGITIS, BX NEG FOR BARRETTS; DR PRISCILA MARES [place] 2011 HOSPITALIZATION/MAJOR DIAGNOSTIC PROCEDURE LOWER GI BLEEDING, [facility] HOSPITALIZATIONS [id number] REVIEW OF SYSTEMS REVIEWED BY: PROVIDER: KIANNA MOE . CONSTITUTIONAL: ANY CHANGE IN YOUR MEDICAL CONDITION? NO . CHILLS NO . FEVER NO . INFECTION: DO YOU HAVE NEW INFECTIONS? NO . DO YOU HAVE HISTORY OF MRSA? NO . MUSCULOSKELETAL: ANY NEW PATTERNS OF PAIN OR NUMBNESS? NO . GASTROENTEROLOGY: ANY NEW CHANGE IN BOWEL CONTROL? NO . GENITOURINARY: ANY NEW CHANGE IN BLADDER CONTROL? NO . IS THERE A CHANCE YOU COULD BE ? NO . HEMATOLOGY/LYMPH: DO YOU TAKE ANY BLOOD THINNERS? (FOR EXAMPLE- COUMADIN, PLAVIX, AGGRENOX, PLATEL, PRADAXA, OR XARELTO) NO . WHEN WAS YOUR LAST DOSE? DATE: TIME: . NEUROLOGY: HAVE YOU FALLEN IN THE PAST 6 MONTHS? NO . ANY NEW EXTREMITY NUMBNESS OR WEAKNESS? NO . CARDIOLOGY: DO YOU HAVE A PACEMAKER OR DEFIBRILLATOR? NO . RESPIRATORY: HAVE YOU BEEN SICK IN THE PAST WEEK? NO . FEVER NO . FLU LIKE SYMPTOMS? NO . COUGH NO . INTEGUMENTARY: DO YOU HAVE ANY RASHES OR OPEN SORES? NO . ALLERGIC/IMMUNO: ARE YOU ALLERGIC TO SHELLFISH OR IV DYE? NO . ANY NEW ALLERGIES? NO . PSYCHIATRIC: DO YOU HAVE THOUGHTS OF HURTING YOURSELF OR SOMEONE ELSE? NO . ARE YOU ABUSED, NEGLECTED, OR IN AN UNSAFE ENVIRONMENT? NO . ENDOCRINOLOGY: ARE YOU DIABETIC? NO . OTHER: DO YOU NEED ANY PRESCRIPTIONS? NO . IF YES, PLEASE LIST: ____ . ANY NEW PROBLEMS WITH YOUR MEDICATIONS? NO . WHEN DID YOU LAST EAT? ____ . WHEN DID YOU LAST DRINK? ____ . WHAT DID YOU LAST DRINK? ____ . NAME OF PERSON DRIVING YOU HOME? ____ . DO YOU HAVE ANY OTHER QUESTIONS OR CONCERNS NO . VITAL SIGNS WT 263.8 LBS, HT 74 IN, BMI 33.87 INDEX, BP 148/90 MM HG, HR 60 /MIN, RR 16 /MIN, TEMP 97.3 F, OXYGEN SAT % 100%, SAFE IN ENV? (Y/N) Y, NA INITIALS TL 0937, REVIEWED BY: EM. EXAMINATION GENERAL EXAMINATION: LUNGS:LUNG SOUNDS ARE CLEAR. HEART:HEART RATE REGULAR. HEART:HEART RATE REGULAR, 2/6PAN SYSTOLIC MURMUR. MUSCULOSKELETAL:*, MUSCLE STRENGTH TESTING 5/5 RIGHT AND 3/5 LEFTPALPATION: NEGATIVE FOR PAIN OVER L/S SPINE. POSITIVE FOR PAIN OVER L/S PARSPINALS.SPECIFIC POINT TENDERNESS OVER BILAT. SIJ. DIAGNOSTIC:MRI L/S [id number]-REVIEWED. ASSESSMENTS SACROILIAC JOINT PAIN - M53.3 (PRIMARY) LUMBOSACRAL SPONDYLOLYSIS - M43.07 (PRIMARY) CHRONIC PRESCRIPTION OPIATE USE - Z79.891 TREATMENT SACROILIAC JOINT PAIN REFILL OXYCODONE HCL TABLET, 15 MG, 1 TABLET, ORALLY, Q6H PRN MDD4, 30 DAY(S), 120, REFILLS 0 NOTES: BILAT.SIJ,ANATOMY OF THE SACROILIAC JOINT MATERIAL WAS PRINTED, REVIEWED AND GIVEN TO PT. PROCEDURE CODES FA211 ESTABILISHED PATIENT [facility] F[facility] CHARGE DISPOSITION & COMMUNICATION FOLLOW UP 2WK POST (REASON: BILAT.SIJ) ELECTRONICALLY SIGNED BY PAYAL GONZAELS ON 05/20/2017 AT 02:25 PM EDT DISCLAIMER : THIS IS A VISIT SUMMARY EXTRACTED FROM THE [employer] CHART. IT IS NOT A COPY OF THE [employer] PROGRESS NOTE. SHAYY
== END ==
LOC: M PAIN 09:20
PROVIDERS: ATTEND Nurse Practitioner Family
DX: G89.29 Other chronic pain (principal); M53.3 Sacrococcygeal disorders, not elsewhere classified; M43.07 Spondylolysis, lumbosacral region; G43.909 Migraine, unspecified, not intractable, without status migrainosus; G40.909 Epilepsy, unspecified, not intractable, without status epilepticus; N18.3 Chronic kidney disease, stage 3 (moderate); K42.9 Umbilical hernia without obstruction or gangrene; Z88.6 Allergy status to analgesic agent; Z79.891 Long term (current) use of opiate analgesic; Z79.899 Other long term (current) drug therapy

== ENCOUNTER → 2017-05-25 | Outpatient (CLI) | payer OTHER ==
[~2017-05-25] MED LIST changes: +BUPIVACAINE HCL 0.25% 30 ML VIAL As Ordered ONE; +ISOVUE-M 300 61% 15ML VIAL (Q9967) As Ordered ONE; +LIDOCAINE 1% SDV INJ 30 ML VIAL As Ordered ONE; +MIDAZOLAM INJ 2 MG/2 ML VIAL (J2250) As Ordered ONE; +TRIAMCINOLONE ACETONIDE SUSP 40 MG/ML VIAL (J3301) As Ordered ONE; +fentaNYL 100 MCG/2 ML INJECTION (J3010) As Ordered ONE
--- NOTE | 2017-05-25 13:57 | REP ---
SI JOINT, LIMITED STUDY: THREE VIEWS HISTORY: Bilateral SI joint injections for pain. 23 seconds of fluoroscopy time is reported. FINDINGS: A sequence of three fluoroscopically-obtained, last image hold spot radiographs of the SI joints document needle position and contrast injection for SI joint injection procedure. Signed by Pedrito Genao MD 05/25/2017 02:31 P
--- NOTE | 2017-06-05 23:27 | ECWPNPC ---
PATIENT NAME: EVARISTO HUDSON : 1965 GENDER: MALE VISIT DATE: 05/25/2017 DISCHARGE DATE: 05/25/17 1600 VISIT LOCKED DATE TIME: PHYSICIAN: RADAMES MCKEON PHYSICIAN PAGER NO: [phone] RESOURCE: RADAMES MCKEON REASON FOR APPOINTMENT 1. BILAT.SIJ HISTORY OF PRESENT ILLNESS HISTORY OF PRESENT ILLNESS: PAIN THE PATIENT DESCRIBES THE PAIN... FALL RISK SCREENING: SCREENING :NO FALLS IN THE PAST YEAR CURRENT MEDICATIONS TAKING OXYCODONE HCL 15 MG TABLET 1 TABLET ORALLY Q6H PRN MDD4, NOTES: 05-24-17 2200 NOT-TAKING SOMA 350 MG TABLET 1 TABLET NEEDED ORALLY Q8H PRN MDD3 NOT-TAKING GABAPENTIN 300 MG CAPSULE 2 CAPSULE BRENNAN,1 MIDDAY,2 IN PM ORALLY THREE TIMES A DAY MDD5, NOTES: 02/15/17 2130 NOT-TAKING LISINOPRIL 10 MG TABLET 1 TABLET ORALLY ONCE A DAY NOT-TAKING VALIUM 10 MG TABLET 2 ORALLY 2 TAB 1HR PRE PROC. MDD2, NOTES: 06/28/16 0815 NOT-TAKING VALIUM 10 MG TABLET 1 ORALLY 1 TAB 1HR PRE PROC. MDD1 NOT-TAKING SUMATRIPTAN SUCCINATE 50 MG TABLET 1 TABLET NEEDED ORALLY AT THE ONSET OF MIGRAINE NOT-TAKING BLOOD PRESSURE MONITOR/L CUFF - MISCELLANEOUS DIRECTED I10 DAILY MEDICATION LIST REVIEWED AND RECONCILED WITH THE PATIENT PAST MEDICAL HISTORY MIGRAINES VENTRICULAR-SEPTAL DEFECT HX SEIZURES AFTER CRANIOTOMY FOR ARACHNOID CYST IN 2006 ANGIOECTASIA OF TERMINAL ILEUM, THERMAL THERAPY 01/17 [place], H/O GI BLEEDING WITH ACUTE BLOOD LOSS ANEMIA REQUIRING [facility] HOSPITALIZATIONS, AND TRANSFUSIONS, NONE SINCE THERMAL THERAPY CKD 3, BASELINES SCR 1.4 - 1.6 DYSLIPIDEMIA WITH LOW HDL 12/21 24 UNBILICAL HERNIA ALLERGIES NSAID: ELEVATED CREATININE: CONTRAINDICATION REVIEW OF SYSTEMS REVIEWED BY: PROVIDER: . CONSTITUTIONAL: ANY CHANGE IN YOUR MEDICAL CONDITION? NO . CHILLS NO . FEVER NO . INFECTION: DO YOU HAVE NEW INFECTIONS? NO . DO YOU HAVE HISTORY OF MRSA? NO . MUSCULOSKELETAL: ANY NEW PATTERNS OF PAIN OR NUMBNESS? NO . GASTROENTEROLOGY: ANY NEW CHANGE IN BOWEL CONTROL? NO . GENITOURINARY: ANY NEW CHANGE IN BLADDER CONTROL? NO . IS THERE A CHANCE YOU COULD BE ? NO . HEMATOLOGY/LYMPH: DO YOU TAKE ANY BLOOD THINNERS? (FOR EXAMPLE- COUMADIN, PLAVIX, AGGRENOX, PLATEL, PRADAXA, OR XARELTO) NO . WHEN WAS YOUR LAST DOSE? DATE: TIME: . NEUROLOGY: HAVE YOU FALLEN IN THE PAST 6 MONTHS? NO . ANY NEW EXTREMITY NUMBNESS OR WEAKNESS? NO . CARDIOLOGY: DO YOU HAVE A PACEMAKER OR DEFIBRILLATOR? NO . RESPIRATORY: HAVE YOU BEEN SICK IN THE PAST WEEK? NO . FEVER NO . FLU LIKE SYMPTOMS? NO . COUGH NO . INTEGUMENTARY: DO YOU HAVE ANY RASHES OR OPEN SORES? NO . ALLERGIC/IMMUNO: ARE YOU ALLERGIC TO SHELLFISH OR IV DYE? NO . ANY NEW ALLERGIES? NO . PSYCHIATRIC: DO YOU HAVE THOUGHTS OF HURTING YOURSELF OR SOMEONE ELSE? NO . ARE YOU ABUSED, NEGLECTED, OR IN AN UNSAFE ENVIRONMENT? NO . ENDOCRINOLOGY: ARE YOU DIABETIC? NO . OTHER: DO YOU NEED ANY PRESCRIPTIONS? NO . IF YES, PLEASE LIST: ____ . ANY NEW PROBLEMS WITH YOUR MEDICATIONS? NO . WHEN DID YOU LAST EAT? ____LAST NIGHT . WHEN DID YOU LAST DRINK? ____LAST NIGHT . WHAT DID YOU LAST DRINK? ____WATER . NAME OF PERSON DRIVING YOU HOME? ____WIFE . DO YOU HAVE ANY OTHER QUESTIONS OR CONCERNS NO . VITAL SIGNS WT 263.8 LBS, HT 74 IN, BMI 33.87 INDEX, BP 143/91 MM HG, HR 69 /MIN, RR 18 /MIN, TEMP 97.4 F, OXYGEN SAT % 93%, NA INITIALS SC 11:12, REVIEWED BY: KG. ASSESSMENTS SACROILIITIS, NOT ELSEWHERE CLASSIFIED - M46.1 (PRIMARY) PROCEDURES PN SI PRE PROCEDURE DIAGNOSIS SACROILIITIS, SACROILIAC JOINT DYSFUNCTION POST PROCEDURE DIAGNOSIS SACROILIITIS, SACROILIAC JOINT DYSFUNCTION PROCEDURE BILATERAL SACROILIAC JOINT BLOCK SURGEON DR. 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 I EVALUATED THE PATIENT AND REVIEWED THE CHART. I WENT OVER THE RISKS, ALTERNATIVES, AND BENEFITS ASSOCIATED WITH THIS PROCEDURE. THE PATIENT WOULD LIKE TO PROCEED AND GAVE CONSENT TO PERFORM THE PROCEDURE. PATIENT WOULD LIKE TO MOVE FORWARD WITH IV SEDATION DUE TO DISCOMFORT, PAIN AND ANXIETY ASSOCIATED WITH THE PROCEDURE. THE PATIENT DENIES UNEXPLAINABLE WEIGHT LOSS, FEVER, CHILLS, OR NEW CHANGES IN URINARY OR BOWEL CONTROL DESCRIPTION OF PROCEDURE THE PATIENT WAS BROUGHT TO THE PROCEDURE ROOM AND PLACED IN THE PRONE POSITION. THE LUMBOSACRAL AREA WAS CLEANED WITH CHLORAPREP SOLUTION AND DRAPED ASEPTICALLY. THE PROCEDURE WAS DONE UNDER STERILE CONDITIONS. I CHECKED LATERALITY AND THE LEVEL WHERE THE PROCEDURE WAS GOING TO BE PERFORMED WITH THE PATIENT AND THE SUPPORTING STAFF AT THE MOMENT OF THE TIME OUT IN THE PROCEDURE ROOM. UNDER FLUOROSCOPIC GUIDANCE, TARGET POINT WAS SELECTED AT THE LOWER BORDER OF THE RIGHT AND LEFT SACROILIAC JOINT. TARGET POINT WAS SELECTED AFTER MEDIAL ROTATION AND TILT OF THE MAGNIFIER OF THE C-ARM. LIDOCAINE WAS USED TO NUMB THE SKIN AND SUBCUTANEOUS TISSUE BELOW IT. A SPINAL NEEDLE, 22-GAUGE, WAS ADVANCED UNDER FLUOROSCOPIC GUIDANCE AND FOLLOWING PATIENT FEEDBACK UNTIL THE TARGET AREA WAS TOUCHED. THE POSITION OF THE NEEDLE WAS VERIFIED WITH AP AND LATERAL VIEWS. AFTER PROPER POSITION OF THE NEEDLE WAS ACHIEVED, ISOVUE M DYE 30%, 0.25 ML, WAS INJECTED SHOWING SPREAD OF THE DYE. THEN, A SOLUTION OF 20 MG OF KENALOG WAS INJECTED IN RIGHT JOINT WITH 3 ML OF BUPIVACAINE 0.125%. PATIENT RECEIVED VERSED 2 MG AND FENTANYL 200 MCG IV DIVIDED DOSES THERE WAS NO EVIDENCE OF BLOOD, PARESTHESIA OR CEREBROSPINAL FLUID DURING THE PROCEDURE. THE PATIENT WAS SENT TO THE RECOVERY ROOM. THE PATIENT WAS MOVING THE EXTREMITIES AND DOING WELL. THERE WAS NO COMPLICATION DURING THE PROCEDURE. FLUOROSCOPY TIME WAS 23 SECONDS. FACE TO FACE TIME WAS 16 MINUTES POST PROCEDURE NOTE THE PATIENT WILL BE SEEN IN A FOLLOW UP IN THE NEXT FEW WEEKS. INSTRUCTIONS WERE GIVEN, QUESTIONS WERE ANSWERED, AND THE PATIENT EXPRESSED UNDERSTANDING AND AGREED WITH THE PLAN. I, HEATHER CONDE, DOCUMENTED THE ABOVE INFORMATION ACTING A SCRIBE FOR DR. MCKEON. I HAVE REVIEWED THE ABOVE DOCUMENT, WRITTEN BY HEATHER VILLALPANDOIBJason AND I VERIFY THAT IT IS ACCURATE DIAGNOSTIC IMAGING [facility] FLUORO GUIDANCE (PAIN)[id number] PROCEDURE CODES 16779 INJECT SACROILIAC JOINT 6045F RADXPS IN END [id number] PXD 09108 MOD SED SAME PHYS/QHP 5/>YRS DISPOSITION & COMMUNICATION FOLLOW UP 3 WEEKS ELECTRONICALLY SIGNED BY RADAMES MCKEON MD ON 06/05/2017 AT 08:17 PM EDT DISCLAIMER : THIS IS A VISIT SUMMARY EXTRACTED FROM THE [employer] CHART. IT IS NOT A COPY OF THE [employer] PROGRESS NOTE. MTDD
== END ==
LOC: M PAIN 11:00
PROVIDERS: ATTEND Anesthesiology
DX: G89.29 Other chronic pain (principal); M46.1 Sacroiliitis, not elsewhere classified; M53.88 Other specified dorsopathies, sacral and sacrococcygeal region; G43.909 Migraine, unspecified, not intractable, without status migrainosus; G40.909 Epilepsy, unspecified, not intractable, without status epilepticus; N18.3 Chronic kidney disease, stage 3 (moderate); K42.9 Umbilical hernia without obstruction or gangrene; Z88.6 Allergy status to analgesic agent; Z79.891 Long term (current) use of opiate analgesic
CPT/HCPCS: 99152; G0260; J2250; J3010; J3301; Q9967

== ENCOUNTER → 2017-07-15 | Outpatient (CLI) | payer OTHER ==
[~2017-07-15] MED LIST changes: -BUPIVACAINE HCL 0.25% 30 ML VIAL As Ordered ONE; -ISOVUE-M 300 61% 15ML VIAL (Q9967) As Ordered ONE; -LIDOCAINE 1% SDV INJ 30 ML VIAL As Ordered ONE; -MIDAZOLAM INJ 2 MG/2 ML VIAL (J2250) As Ordered ONE; -TRIAMCINOLONE ACETONIDE SUSP 40 MG/ML VIAL (J3301) As Ordered ONE; -fentaNYL 100 MCG/2 ML INJECTION (J3010) As Ordered ONE
--- NOTE | 2017-07-26 00:04 | ECWPNPC ---
PATIENT NAME: EVARISTO HUDSON : 1965 GENDER: MALE VISIT DATE: 07/15/2017 DISCHARGE DATE: 07/15/17 1646 VISIT LOCKED DATE TIME: PHYSICIAN: RADAMES MCKEON PHYSICIAN PAGER NO: [phone] RESOURCE: RADAMES MCKEON REASON FOR APPOINTMENT 1. BACK PAIN HISTORY OF PRESENT ILLNESS HISTORY OF PRESENT ILLNESS: PAIN THE PATIENT DESCRIBES THE PAIN... 52 YEAR OLD MALE PATIENT WITH A HISTORY OF CHRONIC LOW BACK PAIN. PATIENT DESCRIBES THE PAIN ACHING, SHARP, SHOOTING, AND HAVING THE PAIN ALL THE TIME. PATIENT HAS A PAIN SCORE OF 6-8/10 AT TODAYS VISIT. PATIENT RECEIVED A BILATERAL SIJ ON 05/25/17 AND REPORTS TO HAVE HAD GOOD RESULTS WITH MORE TNAN 50% DECREASE IN PAIN AND INCREASE IN FUNCTIONALITY. MR. HUDSON STATES THAT THE PAIN IS BACK AND IS SEVERE. PATIENT IS CURRENTLY TAKING OXYCODONE TO HELP AIDE HIS PAIN AND STATES THAT WITHOUT THE MEDICATION HE WOULD NOT BE ABLE TO FUNCTION. PATIENT DENIES ABUSE OF ANY MEDICATION, DENIES USE OF ILLEGAL SUBSTANCES, AND STATES HE IS ONLY USING THE MEDICATION FOR PAIN MANAGEMENT. MR. HUDSON DENIES UNEXPLAINABLE WEIGHT LOSS, FEVER, CHILLS, NEW CHANGES ON HIS URINARY OR BOWEL CONTROL. FALL RISK SCREENING: SCREENING :NO FALLS IN THE PAST YEAR CURRENT MEDICATIONS TAKING OXYCODONE HCL 15 MG TABLET 1 TABLET ORALLY Q6H PRN MDD4 FOR 2 WEEKS NOT-TAKING LISINOPRIL 10 MG TABLET 1 TABLET ORALLY ONCE A DAY NOT-TAKING VALIUM 10 MG TABLET 2 ORALLY 2 TAB 1HR PRE PROC. MDD2, NOTES: 06/28/16 0815 NOT-TAKING VALIUM 10 MG TABLET 1 ORALLY 1 TAB 1HR PRE PROC. MDD1 NOT-TAKING SUMATRIPTAN SUCCINATE 50 MG TABLET 1 TABLET NEEDED ORALLY AT THE ONSET OF MIGRAINE NOT-TAKING BLOOD PRESSURE MONITOR/L CUFF - MISCELLANEOUS DIRECTED I10 DAILY DISCONTINUED SOMA 350 MG TABLET 1 TABLET NEEDED ORALLY Q8H PRN MDD3 DISCONTINUED GABAPENTIN 300 MG CAPSULE 2 CAPSULE BRENNAN,1 MIDDAY,2 IN PM ORALLY THREE TIMES A DAY MDD5 MEDICATION LIST REVIEWED AND RECONCILED WITH THE PATIENT PAST MEDICAL HISTORY MIGRAINES VENTRICULAR-SEPTAL DEFECT HX SEIZURES AFTER CRANIOTOMY FOR ARACHNOID CYST IN 2006 ANGIOECTASIA OF TERMINAL ILEUM, THERMAL THERAPY 01/17 [place], H/O GI BLEEDING WITH ACUTE BLOOD LOSS ANEMIA REQUIRING MTP HOSPITALIZATIONS, AND TRANSFUSIONS, NONE SINCE THERMAL THERAPY CKD 3, BASELINES SCR 1.4 - 1.6 DYSLIPIDEMIA WITH LOW HDL 12/21 23 UNBILICAL HERNIA ALLERGIES NSAID: ELEVATED CREATININE: CONTRAINDICATION SOCIAL HISTORY GENERAL: TOBACCO USE ARE YOU A:NONSMOKER PAIN CLINIC PFS, CLERGY, PUBLIC HEALTH REFERRALS PFS REFERRAL NEEDED?NO CLERGY REFERRAL NEEDED?NO PUBLIC HEALTH REFERRAL NEEDED?NO WAS THE PROVIDER NOTIFIED OF ANY PERTINENT INFO?NO HAS THE PATIENT BEEN EDUCATED REGARDING HIS/HER PLAN OF CARE?YES HAS THE PATIENT BEEN EDUCATED REGARDING PAIN, THE RISK FOR PAIN, THE IMPORTANCE OF EFFECTIVE PAIN MANAGEMENT, AND THE PAIN ASSESSMENT PROCESS?YES PATIENT: ____. REVIEW OF SYSTEMS REVIEWED BY: PROVIDER: RADAMES MCKEON MD . CONSTITUTIONAL: ANY CHANGE IN YOUR MEDICAL CONDITION? NO . CHILLS NO . FEVER NO . INFECTION: DO YOU HAVE NEW INFECTIONS? NO . DO YOU HAVE HISTORY OF MRSA? NO . MUSCULOSKELETAL: ANY NEW PATTERNS OF PAIN OR NUMBNESS? NO . GASTROENTEROLOGY: ANY NEW CHANGE IN BOWEL CONTROL? NO . GENITOURINARY: ANY NEW CHANGE IN BLADDER CONTROL? NO . IS THERE A CHANCE YOU COULD BE ? NO . HEMATOLOGY/LYMPH: DO YOU TAKE ANY BLOOD THINNERS? (FOR EXAMPLE- COUMADIN, PLAVIX, AGGRENOX, PLATEL, PRADAXA, OR XARELTO) NO . WHEN WAS YOUR LAST DOSE? DATE: TIME: . NEUROLOGY: HAVE YOU FALLEN IN THE PAST 6 MONTHS? NO . ANY NEW EXTREMITY NUMBNESS OR WEAKNESS? NO . CARDIOLOGY: DO YOU HAVE A PACEMAKER OR DEFIBRILLATOR? NO . RESPIRATORY: HAVE YOU BEEN SICK IN THE PAST WEEK? NO . FEVER NO . FLU LIKE SYMPTOMS? NO . COUGH NO . INTEGUMENTARY: DO YOU HAVE ANY RASHES OR OPEN SORES? NO . ALLERGIC/IMMUNO: ARE YOU ALLERGIC TO SHELLFISH OR IV DYE? NO . ANY NEW ALLERGIES? NO . PSYCHIATRIC: DO YOU HAVE THOUGHTS OF HURTING YOURSELF OR SOMEONE ELSE? NO . ARE YOU ABUSED, NEGLECTED, OR IN AN UNSAFE ENVIRONMENT? NO . ENDOCRINOLOGY: ARE YOU DIABETIC? NO . OTHER: DO YOU NEED ANY PRESCRIPTIONS? YES . IF YES, PLEASE LIST: OXYCODONE ONLY GOT A HALF RX LAST REFILL. . ANY NEW PROBLEMS WITH YOUR MEDICATIONS? NO . WHEN DID YOU LAST EAT? ____ . WHEN DID YOU LAST DRINK? ____ . WHAT DID YOU LAST DRINK? ____ . NAME OF PERSON DRIVING YOU HOME? ____ . DO YOU HAVE ANY OTHER QUESTIONS OR CONCERNS NO . VITAL SIGNS WT 262 LBS, HT 74 IN, BMI 33.64 INDEX, BP 152/94 MM HG, HR 82 /MIN, RR 18 /MIN, TEMP 98.1 F, OXYGEN SAT % 94%, NA INITIALS SC 14:55, REVIEWED BY: CM. EXAMINATION : PATIENT IS ALERT O X 3 AND COOPERATIVE. PATIENT IS SEEN BEING VERY UNCOMFORTABLE AND HAVING DIFFICULTY SITTING STILL. THERE IS TENDERNESS IN BOTH THE LEFT AND RIGHT SACROILIAC JOINT AREA. URINE TOX DONE ON 12/10/16 SHOES CONSISTANT RESULTS WITH THE PATIENTS MEDICATION LIST. ASSESSMENTS SACROILIAC JOINT PAIN - M53.3 (PRIMARY) TREATMENT SACROILIAC JOINT PAIN REFILL OXYCODONE HCL TABLET, 15 MG, 1 TABLET, ORALLY, Q6H PRN MDD4, 30 DAY(S), 120, REFILLS 0 CLINICAL NOTES: WE DISCUSSED SEVERAL ISSUES WITH MR. EM PAIN MANAGEMENT CASE. AT THIS TIME THE PATIENT WILL CONTINUE TO USE THE SAME MEDICATION REGIME BEFORE. PATIENT IS TAKING OXYCODONE TO HELP WITH THE PAIN. DUE TO THE PATIENT HAVING GOOD RESULTS WITH HIS PREVIOUS BILATERAL SACROILIAC INJECTION DONE ON 05/25/17; BOTH THE PATIENT AND I AGREE THAT WE WILL MOVE FORWARD WITH ANOTHER BILATERAL SIJ. PATIENT IS CURRENTLY BOOKED FOR THE INJECTION ON 07/27/17 BUT IF THERE IS A CANCELLATION THEN WE WILL GET HIM IN SOONER DUE TO HIM BEING IN SEVERE PAIN. ALSO AT THIS TIME I WILL REFILL THE PATIENTS OXYCODONE. URINE TOX DONE ON 12/10/16 SHOES CONSISTENT RESULTS WITH THE PATIENTS MEDICATION LIST. MR. HUDSON WILL DO A URINE TOX TODAY WELL. PATIENT DENIES ABUSE OF ANY MEDICATION, DENIES USE OF ILLEGAL SUBSTANCES, AND STATES HE IS ONLY USING THE MEDICATION FOR PAIN MANAGEMENT. I ALSO BRIEFLY DISCUSSED THE DCS TRIAL WITH THE PATIENT AND HE SAID HE WILL THINK ABOUT IT AND WE WILL TALK ABOUT IT AT HIS NEXT APPOINTMENT. PATIENT WILL FOLLOWUP WITH KIANNA DURON IN 1 MONTH TO CONTINUE HIS PAIN MANAGEMENT CASE AND TO SEE HOW THE INJECTION IS WORKING FOR HIM. I KENDY DE PAZ DOCUMENTED THE ABOVE INFORMATION ACTING A DOUGHNUT ICER FOR DR. MCKEON. I HAVE REVIEWED THE ABOVE DOCUMENT WRITTEN BY KENDY SALAZAR AND I VERIFY THAT IT IS ACCURATE. PROCEDURE CODES FA211 ESTABILISHED PATIENT [facility] CHARGE [id number] OFFICE/OUTPATIENT VISIT EST G8730 PAIN ASSESS POS TOOL F/U PLAN DOC DISPOSITION & COMMUNICATION FOLLOW UP 4 WEEKS ELECTRONICALLY SIGNED BY RADAMES MCKEON MD ON 07/25/2017 AT 07:00 AM EDT DISCLAIMER : THIS IS A VISIT SUMMARY EXTRACTED FROM THE [employer] CHART. IT IS NOT A COPY OF THE [employer] PROGRESS NOTE. SHAYY
== END ==
LOC: M PAIN 14:45
PROVIDERS: ATTEND Anesthesiology
DX: G89.29 Other chronic pain (principal); M53.3 Sacrococcygeal disorders, not elsewhere classified; G43.909 Migraine, unspecified, not intractable, without status migrainosus; R56.9 Unspecified convulsions; N18.3 Chronic kidney disease, stage 3 (moderate); Z88.6 Allergy status to analgesic agent; Z79.891 Long term (current) use of opiate analgesic; Z79.899 Other long term (current) drug therapy

== ENCOUNTER → 2017-07-21 | Outpatient (CLI) | payer OTHER ==
[~2017-07-21] MED LIST changes: +BUPIVACAINE HCL 0.25% 30 ML VIAL As Ordered ONE; +ISOVUE-M 300 61% 15ML VIAL (Q9967) As Ordered ONE; +LIDOCAINE 1% SDV INJ 30 ML VIAL As Ordered ONE; +MIDAZOLAM INJ 2 MG/2 ML VIAL (J2250) As Ordered ONE; +TRIAMCINOLONE ACETONIDE SUSP 40 MG/ML VIAL (J3301) As Ordered ONE; +fentaNYL 100 MCG/2 ML INJECTION (J3010) As Ordered ONE
--- NOTE | 2017-07-21 14:26 | REP ---
PARTIAL SI JOINT SERIES: Six views. HISTORY: Bilateral SI joint injection for pain. 19 seconds of fluoroscopy time is reported. FINDINGS: A sequence of six last image hold fluoroscopic spot radiographs of the SI joints document various needle positions and contrast injections associated with injection procedure. Signed by Pedrito Genao MD 07/21/2017 03:52 P
--- NOTE | 2017-07-21 23:26 | ECWPNPC ---
PATIENT NAME: EVARISTO HUDSON : 1965 GENDER: MALE VISIT DATE: 07/21/2017 DISCHARGE DATE: 07/21/17 0000 VISIT LOCKED DATE TIME: PHYSICIAN: RADAMES MCKEON PHYSICIAN PAGER NO: [phone] RESOURCE: RADAMES MCKEON REASON FOR APPOINTMENT 1. MAXIMO. SIJ HISTORY OF PRESENT ILLNESS HISTORY OF PRESENT ILLNESS: PAIN THE PATIENT DESCRIBES THE PAIN... FALL RISK SCREENING: SCREENING :NO FALLS IN THE PAST YEAR CURRENT MEDICATIONS TAKING OXYCODONE HCL 15 MG TABLET 1 TABLET ORALLY Q6H PRN MDD4, NOTES: 07/20/17 1930 NOT-TAKING LISINOPRIL 10 MG TABLET 1 TABLET ORALLY ONCE A DAY NOT-TAKING VALIUM 10 MG TABLET 2 ORALLY 2 TAB 1HR PRE PROC. MDD2, NOTES: 06/28/16 0815 NOT-TAKING VALIUM 10 MG TABLET 1 ORALLY 1 TAB 1HR PRE PROC. MDD1 NOT-TAKING SUMATRIPTAN SUCCINATE 50 MG TABLET 1 TABLET NEEDED ORALLY AT THE ONSET OF MIGRAINE NOT-TAKING BLOOD PRESSURE MONITOR/L CUFF - MISCELLANEOUS DIRECTED I10 DAILY MEDICATION LIST REVIEWED AND RECONCILED WITH THE PATIENT PAST MEDICAL HISTORY MIGRAINES VENTRICULAR-SEPTAL DEFECT HX SEIZURES AFTER CRANIOTOMY FOR ARACHNOID CYST IN 2006 ANGIOECTASIA OF TERMINAL ILEUM, THERMAL THERAPY 01/17 [place], H/O GI BLEEDING WITH ACUTE BLOOD LOSS ANEMIA REQUIRING [facility]TP HOSPITALIZATIONS, AND TRANSFUSIONS, NONE SINCE THERMAL THERAPY CKD 3, BASELINES SCR 1.4 - 1.6 DYSLIPIDEMIA WITH LOW HDL 12/21 23 UNBILICAL HERNIA ALLERGIES NSAID: ELEVATED CREATININE: CONTRAINDICATION REVIEW OF SYSTEMS REVIEWED BY: PROVIDER: . CONSTITUTIONAL: ANY CHANGE IN YOUR MEDICAL CONDITION? NO . CHILLS NO . FEVER NO . INFECTION: DO YOU HAVE NEW INFECTIONS? NO . DO YOU HAVE HISTORY OF MRSA? NO . MUSCULOSKELETAL: ANY NEW PATTERNS OF PAIN OR NUMBNESS? NO . GASTROENTEROLOGY: ANY NEW CHANGE IN BOWEL CONTROL? NO . GENITOURINARY: ANY NEW CHANGE IN BLADDER CONTROL? NO . IS THERE A CHANCE YOU COULD BE ? NO . HEMATOLOGY/LYMPH: DO YOU TAKE ANY BLOOD THINNERS? (FOR EXAMPLE- COUMADIN, PLAVIX, AGGRENOX, PLATEL, PRADAXA, OR XARELTO) NO . WHEN WAS YOUR LAST DOSE? DATE: TIME: . NEUROLOGY: HAVE YOU FALLEN IN THE PAST 6 MONTHS? NO . ANY NEW EXTREMITY NUMBNESS OR WEAKNESS? NO . CARDIOLOGY: DO YOU HAVE A PACEMAKER OR DEFIBRILLATOR? NO . RESPIRATORY: HAVE YOU BEEN SICK IN THE PAST WEEK? NO . FEVER NO . FLU LIKE SYMPTOMS? NO . COUGH NO . INTEGUMENTARY: DO YOU HAVE ANY RASHES OR OPEN SORES? NO . ALLERGIC/IMMUNO: ARE YOU ALLERGIC TO SHELLFISH OR IV DYE? NO . ANY NEW ALLERGIES? NO . PSYCHIATRIC: DO YOU HAVE THOUGHTS OF HURTING YOURSELF OR SOMEONE ELSE? NO . ARE YOU ABUSED, NEGLECTED, OR IN AN UNSAFE ENVIRONMENT? NO . ENDOCRINOLOGY: ARE YOU DIABETIC? NO . OTHER: DO YOU NEED ANY PRESCRIPTIONS? NO . IF YES, PLEASE LIST: ____ . ANY NEW PROBLEMS WITH YOUR MEDICATIONS? NO . WHEN DID YOU LAST EAT? --17 PM . WHEN DID YOU LAST DRINK? -- PM . WHAT DID YOU LAST DRINK? DIET PEPSI . NAME OF PERSON DRIVING YOU HOME? PEARL . DO YOU HAVE ANY OTHER QUESTIONS OR CONCERNS NO . VITAL SIGNS WT 265 LBS, HT 74 IN, BMI 34.02 INDEX, BP 134/97 MM HG, HR 64 /MIN, RR 16 /MIN, TEMP 97.9 F, OXYGEN SAT % 95%, NA INITIALS SC 10:31, REVIEWED BY: CM. ASSESSMENTS SACROILIITIS, NOT ELSEWHERE CLASSIFIED - M46.1 (PRIMARY) PROCEDURES PN SI PRE PROCEDURE DIAGNOSIS SACROILIITIS, SACROILIAC JOINT DYSFUNCTION POST PROCEDURE DIAGNOSIS SACROILIITIS, SACROILIAC JOINT DYSFUNCTION PROCEDURE BILATERAL SACROILIAC JOINT BLOCK SURGEON DR. 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 I EVALUATED THE PATIENT AND REVIEWED THE CHART. I WENT OVER THE RISKS, ALTERNATIVES, AND BENEFITS ASSOCIATED WITH THIS PROCEDURE. PATIENT WOULD LIKE TO MOVE FORWARD WITH IV SEDATION DUE TO DISCOMFORT, PAIN AND ANXIETY ASSOCIATED WITH THE PROCEDURE. THE PATIENT WOULD LIKE TO PROCEED AND GAVE CONSENT TO PERFORM THE PROCEDURE. THE PATIENT DENIES UNEXPLAINABLE WEIGHT LOSS, FEVER, CHILLS, OR NEW CHANGES IN URINARY OR BOWEL CONTROL DESCRIPTION OF PROCEDURE THE PATIENT WAS BROUGHT TO THE PROCEDURE ROOM AND PLACED IN THE PRONE POSITION. THE LUMBOSACRAL AREA WAS CLEANED WITH CHLORAPREP SOLUTION AND DRAPED ASEPTICALLY. THE PROCEDURE WAS DONE UNDER STERILE CONDITIONS. I CHECKED LATERALITY AND THE LEVEL WHERE THE PROCEDURE WAS GOING TO BE PERFORMED WITH THE PATIENT AND THE SUPPORTING STAFF AT THE MOMENT OF THE TIME OUT IN THE PROCEDURE ROOM. UNDER FLUOROSCOPIC GUIDANCE, TARGET POINT WAS SELECTED AT THE LOWER BORDER OF THE RIGHT AND LEFT SACROILIAC JOINT. TARGET POINT WAS SELECTED AFTER MEDIAL ROTATION AND TILT OF THE MAGNIFIER OF THE C-ARM. LIDOCAINE WAS USED TO NUMB THE SKIN AND SUBCUTANEOUS TISSUE BELOW IT. A SPINAL NEEDLE, 22-GAUGE, WAS ADVANCED UNDER FLUOROSCOPIC GUIDANCE AND FOLLOWING PATIENT FEEDBACK UNTIL THE TARGET AREA WAS TOUCHED. THE POSITION OF THE NEEDLE WAS VERIFIED WITH AP AND LATERAL VIEWS. AFTER PROPER POSITION OF THE NEEDLE WAS ACHIEVED, ISOVUE M DYE 30%, 0.25 ML, WAS INJECTED SHOWING SPREAD OF THE DYE. THEN, A SOLUTION OF 20 MG OF KENALOG WAS INJECTED IN RIGHT JOINT WITH 3 ML OF BUPIVACAINE 0.125%. PATIENT RECEIVED VERSED 2 MG AND FENTANYL 100 MCG IV DIVIDED DOSES THERE WAS NO EVIDENCE OF BLOOD, PARESTHESIA OR CEREBROSPINAL FLUID DURING THE PROCEDURE. THE PATIENT WAS SENT TO THE RECOVERY ROOM. THE PATIENT WAS MOVING THE EXTREMITIES AND DOING WELL. THERE WAS NO COMPLICATION DURING THE PROCEDURE. FLUOROSCOPY TIME WAS 19 SECONDS. FACE TO FACE TIME WAS 15 MINUTES POST PROCEDURE NOTE THE PATIENT WILL BE SEEN IN A FOLLOW UP IN THE NEXT FEW WEEKS. INSTRUCTIONS WERE GIVEN, QUESTIONS WERE ANSWERED, AND THE PATIENT EXPRESSED UNDERSTANDING AND AGREED WITH THE PLAN. I, HEATHER CONDE, DOCUMENTED THE ABOVE INFORMATION ACTING A SCRIBE FOR DR. MCKEON. I HAVE REVIEWED THE ABOVE DOCUMENT, WRITTEN BY HEATHER SALAZAR AND I VERIFY THAT IT IS ACCURATE PROCEDURE CODES 75163 INJECT SACROILIAC JOINT 6045F RADXPS IN END [id number] PXD 13436 MOD SED SAME PHYS/QHP 5/>YRS DISPOSITION & COMMUNICATION FOLLOW UP 3 WEEKS ELECTRONICALLY SIGNED BY RADAMES MCKEON MD ON 07/21/2017 AT 02:48 PM EDT DISCLAIMER : THIS IS A VISIT SUMMARY EXTRACTED FROM THE [employer] CHART. IT IS NOT A COPY OF THE [employer] PROGRESS NOTE. MTDD
== END ==
LOC: M PAIN 10:15
PROVIDERS: ATTEND Anesthesiology
DX: G89.29 Other chronic pain (principal); M46.1 Sacroiliitis, not elsewhere classified; M53.88 Other specified dorsopathies, sacral and sacrococcygeal region; Z86.69 Personal history of other diseases of the nervous system and sense organs; N18.3 Chronic kidney disease, stage 3 (moderate); K42.9 Umbilical hernia without obstruction or gangrene; Z88.6 Allergy status to analgesic agent; Z79.891 Long term (current) use of opiate analgesic
CPT/HCPCS: 99152; G0260; J2250; J3010; J3301; Q9967

== ENCOUNTER → 2017-08-26 | Outpatient (CLI) | payer OTHER ==
[~2017-08-26] MED LIST changes: -BUPIVACAINE HCL 0.25% 30 ML VIAL As Ordered ONE; -ISOVUE-M 300 61% 15ML VIAL (Q9967) As Ordered ONE; -LIDOCAINE 1% SDV INJ 30 ML VIAL As Ordered ONE; -MIDAZOLAM INJ 2 MG/2 ML VIAL (J2250) As Ordered ONE; -TRIAMCINOLONE ACETONIDE SUSP 40 MG/ML VIAL (J3301) As Ordered ONE; -fentaNYL 100 MCG/2 ML INJECTION (J3010) As Ordered ONE
--- NOTE | 2017-09-21 02:16 | ECWPNPC ---
PATIENT NAME: EVARISTO HUDSON : 1965 GENDER: MALE VISIT DATE: 08/26/2017 DISCHARGE DATE: 08/26/17 09 VISIT LOCKED DATE TIME: PHYSICIAN: KIANNA DURON PHYSICIAN PAGER NO: [phone] RESOURCE: KIANNA DURON REASON FOR APPOINTMENT 1. POST BILATERAL SIJ HISTORY OF PRESENT ILLNESS HISTORY OF PRESENT ILLNESS: HERE FOR POST PROCEDURE F/U.HAD BILATERAL SIJ ON 07-21-17.PAIN IS BACK AT HIGH LEVEL VAS 7/10 OVER PAST WEEK.RECIEVED ONE MONTH OF >50% IMPROVEMENT IN LOW BACK THEN PAIN HAS RETURNED.DESCRIBES PAIN CONSTANT AND SHARP.PAIN IS AGGREVATED BY PROLONGED SITTING AND STANDING. PAIN THE PATIENT DESCRIBES THE PAIN... FALL RISK SCREENING: SCREENING :NO FALLS IN THE PAST YEAR CURRENT MEDICATIONS TAKING LISINOPRIL 10 MG TABLET 1 TABLET ORALLY ONCE A DAY TAKING SUMATRIPTAN SUCCINATE 50 MG TABLET 1 TABLET NEEDED ORALLY AT THE ONSET OF MIGRAINE TAKING BLOOD PRESSURE MONITOR/L CUFF - MISCELLANEOUS DIRECTED I10 DAILY TAKING OXYCODONE HCL 15 MG TABLET 1 TABLET ORALLY Q6H PRN MDD4 NOT-TAKING VALIUM 10 MG TABLET 2 ORALLY 2 TAB 1HR PRE PROC. MDD2, NOTES: 06/28/16 0815 NOT-TAKING VALIUM 10 MG TABLET 1 ORALLY 1 TAB 1HR PRE PROC. MDD1 MEDICATION LIST REVIEWED AND RECONCILED WITH THE PATIENT PAST MEDICAL HISTORY MIGRAINES VENTRICULAR-SEPTAL DEFECT HX SEIZURES AFTER CRANIOTOMY FOR ARACHNOID CYST IN 2006 ANGIOECTASIA OF TERMINAL ILEUM, THERMAL THERAPY 01/17 [place], H/O GI BLEEDING WITH ACUTE BLOOD LOSS ANEMIA REQUIRING MTP HOSPITALIZATIONS, AND TRANSFUSIONS, NONE SINCE THERMAL THERAPY CKD 3, BASELINES SCR 1.4 - 1.6 DYSLIPIDEMIA WITH LOW HDL 12/21 23 UNBILICAL HERNIA ALLERGIES NSAID: ELEVATED CREATININE: CONTRAINDICATION SOCIAL HISTORY GENERAL: TOBACCO USE ARE YOU A:NONSMOKER MOSQUE [id number] NONE LEARNING BARRIERS / SPECIAL NEEDS BARRIERS TO LEARNING?NO HEARING IMPAIRED?NO VISION IMPAIRED?NO COGNITIVELY IMPAIRED?NO READINESS TO LEARN?YES LEARNING PREFERENCES?NO LEARNING CAPABILITIES PRESENT?YES EMOTIONAL BARRIERS?NO PAIN CLINIC PFS, CLERGY, PUBLIC HEALTH REFERRALS PFS REFERRAL NEEDED?NO CLERGY REFERRAL NEEDED?NO PUBLIC HEALTH REFERRAL NEEDED?NO WAS THE PROVIDER NOTIFIED OF ANY PERTINENT INFO?NO HAS THE PATIENT BEEN EDUCATED REGARDING HIS/HER PLAN OF CARE?YES HAS THE PATIENT BEEN EDUCATED REGARDING PAIN, THE RISK FOR PAIN, THE IMPORTANCE OF EFFECTIVE PAIN MANAGEMENT, AND THE PAIN ASSESSMENT PROCESS?YES PATIENT: ____. ADVANCE DIRECTIVES HEALTH CARE PROXY?NO WOULD YOU LIKE MORE INFORMATION?NO LIVING WILL?NO WOULD YOU LIKE MORE INFORMATION?NO REVIEW OF SYSTEMS REVIEWED BY: PROVIDER: KIANNA MOE . CONSTITUTIONAL: ANY CHANGE IN YOUR MEDICAL CONDITION? NO . CHILLS NO . FEVER NO . INFECTION: DO YOU HAVE NEW INFECTIONS? NO . DO YOU HAVE HISTORY OF MRSA? NO . MUSCULOSKELETAL: ANY NEW PATTERNS OF PAIN OR NUMBNESS? NO . GASTROENTEROLOGY: ANY NEW CHANGE IN BOWEL CONTROL? NO . GENITOURINARY: ANY NEW CHANGE IN BLADDER CONTROL? NO . IS THERE A CHANCE YOU COULD BE ? NO . HEMATOLOGY/LYMPH: DO YOU TAKE ANY BLOOD THINNERS? (FOR EXAMPLE- COUMADIN, PLAVIX, AGGRENOX, PLATEL, PRADAXA, OR XARELTO) NO . WHEN WAS YOUR LAST DOSE? DATE: TIME: . NEUROLOGY: HAVE YOU FALLEN IN THE PAST 6 MONTHS? NO . ANY NEW EXTREMITY NUMBNESS OR WEAKNESS? NO . CARDIOLOGY: DO YOU HAVE A PACEMAKER OR DEFIBRILLATOR? NO . RESPIRATORY: HAVE YOU BEEN SICK IN THE PAST WEEK? NO . FEVER NO . FLU LIKE SYMPTOMS? NO . COUGH NO . INTEGUMENTARY: DO YOU HAVE ANY RASHES OR OPEN SORES? NO . ALLERGIC/IMMUNO: ARE YOU ALLERGIC TO SHELLFISH OR IV DYE? NO . ANY NEW ALLERGIES? NO . PSYCHIATRIC: DO YOU HAVE THOUGHTS OF HURTING YOURSELF OR SOMEONE ELSE? NO . ARE YOU ABUSED, NEGLECTED, OR IN AN UNSAFE ENVIRONMENT? NO . ENDOCRINOLOGY: ARE YOU DIABETIC? NO . OTHER: DO YOU NEED ANY PRESCRIPTIONS? NO . IF YES, PLEASE LIST: ____ . ANY NEW PROBLEMS WITH YOUR MEDICATIONS? NO . WHEN DID YOU LAST EAT? ____ . WHEN DID YOU LAST DRINK? ____ . WHAT DID YOU LAST DRINK? ____ . NAME OF PERSON DRIVING YOU HOME? ____ . DO YOU HAVE ANY OTHER QUESTIONS OR CONCERNS NO . VITAL SIGNS WT 265 LBS, HT 74 IN, BMI 34.02 INDEX, BP 143/98 MM HG, HR 73 /MIN, RR 16 /MIN, TEMP 97. F, OXYGEN SAT % 95%, NA INITIALS SC 09:18, REVIEWED BY: NL. EXAMINATION GENERAL EXAMINATION: LUNGS:LUNG SOUNDS ARE CLEAR. HEART:HEART RATE REGULAR. MUSCULOSKELETAL:*, MUSCLE STRENGTH TESTING 5/5 RIGHT AND 3/5 LEFTPALPATION: NEGATIVE FOR PAIN OVER L/S SPINE. POSITIVE FOR PAIN OVER L/S PARSPINALS.SPECIFIC POINT TENDERNESS OVER BILAT. SIJ. DIAGNOSTIC:MRI L/S [id number]. ASSESSMENTS SACROILIAC JOINT PAIN - M53.3 (PRIMARY) POST LAMINECTOMY SYNDROME - M96.1 TREATMENT SACROILIAC JOINT PAIN CONTINUE OXYCODONE HCL TABLET, 15 MG, 1 TABLET, ORALLY, Q6H PRN MDD4 NOTES: BILAT. SIJ, ISTOP REGISTRY [id number] AND DEMNOSTRATES COMPLLIANCE. BRINGS IN MEDICATIONS WHICH IS APPROPRIATE FOR WHAT WAS DISPENSED. RECENT URINE TOXICOLOGY REVIEWED. NO UNAUTHORIZED MEDICATIONS. NO ILLICIT SUBSTANCES AND PRESCRIBED MEDICATIONS WERE PRESENT. , RISKS AND BENEFITS OF NARCOTIC/OPIOD MEDICATIONS WERE REVIEWED WITH PATIENT - THIS INCLUDES BUT IS NOT LIMITED TO RISK OF DEPENDANCE/DEVELOPMENT OF ADDICTION, MOOD DISTURBANCE AND DEPRESSION, OSTEOPOROSIS, HORMONAL AND LABIDAL CHANGES, RESPIRATORY DEPRESSION AND . PATIENT IS ADVISED NOT TO DRIVE WHILE ON THESE MEDICATIONS. PREVENTIVE MEDICINE REVIEWED PRE PROCEDURE CARE WITH UNDERSTANDING EXPRESSED BY PT. PROCEDURE CODES FA211 ESTABILISHED PATIENT [facility] FACILITY CHARGE DISPOSITION & COMMUNICATION FOLLOW UP 2WK POST (REASON: BILAT. SIJ) ELECTRONICALLY SIGNED BY PAYAL GONZALES ON 09/20/2017 AT 08:38 PM EST DISCLAIMER : THIS IS A VISIT SUMMARY EXTRACTED FROM THE [employer] CHART. IT IS NOT A COPY OF THE [employer] PROGRESS NOTE. YURYD
== END ==
LOC: M PAIN 09:00
PROVIDERS: ATTEND Nurse Practitioner Family
DX: M53.3 Sacrococcygeal disorders, not elsewhere classified (principal); M96.1 Postlaminectomy syndrome, not elsewhere classified; Z79.891 Long term (current) use of opiate analgesic; Z79.899 Other long term (current) drug therapy; I12.9 Hypertensive chronic kidney disease with stage 1 through stage 4 chronic kidney disease, or unspecified chronic kidney disease; N18.3 Chronic kidney disease, stage 3 (moderate); G43.909 Migraine, unspecified, not intractable, without status migrainosus; Z88.8 Allergy status to other drugs, medicaments and biological substances

== ENCOUNTER → 2017-08-29 | Outpatient (CLI) | payer OTHER ==
[~2017-08-29] MED LIST changes: +BUPIVACAINE HCL 0.25% 30 ML VIAL As Ordered ONE; +ISOVUE-M 300 61% 15ML VIAL (Q9967) As Ordered ONE; +LIDOCAINE 1% SDV INJ 30 ML VIAL As Ordered ONE; +MIDAZOLAM INJ 2 MG/2 ML VIAL (J2250) As Ordered ONE; +TRIAMCINOLONE ACETONIDE SUSP 40 MG/ML VIAL (J3301) As Ordered ONE; +fentaNYL 100 MCG/2 ML INJECTION (J3010) As Ordered ONE
--- NOTE | 2017-08-29 12:08 | REP ---
Bilateral SI joint: Limited study four views. History: Injection procedure for pain. 25 seconds of fluoroscopy time is reported. Findings: A sequence of four last image hold fluoroscopic spot radiographs of the SI joints document needle positions and contrast injections associated with SI joint injection procedure. Signed by Pedrito Genao MD 08/29/2017 12:59 P
--- NOTE | 2017-08-29 23:18 | ECWPNPC ---
PATIENT NAME: EVARISTO HUDSON : 1965 GENDER: MALE VISIT DATE: 08/29/2017 DISCHARGE DATE: 08/29/17 1157 VISIT LOCKED DATE TIME: PHYSICIAN: RADAMES MCKEON PHYSICIAN PAGER NO: [phone] RESOURCE: RADAMES MCKEON REASON FOR APPOINTMENT 1. BILAT. SIJ HISTORY OF PRESENT ILLNESS HISTORY OF PRESENT ILLNESS: PAIN THE PATIENT DESCRIBES THE PAIN... FALL RISK SCREENING: SCREENING :NO FALLS IN THE PAST YEAR CURRENT MEDICATIONS TAKING BLOOD PRESSURE MONITOR/L CUFF - MISCELLANEOUS DIRECTED I10 DAILY TAKING OXYCODONE HCL 15 MG TABLET 1 TABLET ORALLY Q6H PRN MDD4, NOTES: 08/28 2000 DISCONTINUED LISINOPRIL 10 MG TABLET 1 TABLET ORALLY ONCE A DAY DISCONTINUED SUMATRIPTAN SUCCINATE 50 MG TABLET 1 TABLET NEEDED ORALLY AT THE ONSET OF MIGRAINE DISCONTINUED VALIUM 10 MG TABLET 2 ORALLY 2 TAB 1HR PRE PROC. MDD2, NOTES: 06/28/16 0815 DISCONTINUED VALIUM 10 MG TABLET 1 ORALLY 1 TAB 1HR PRE PROC. MDD1 MEDICATION LIST REVIEWED AND RECONCILED WITH THE PATIENT PAST MEDICAL HISTORY MIGRAINES VENTRICULAR-SEPTAL DEFECT HX SEIZURES AFTER CRANIOTOMY FOR ARACHNOID CYST IN 2006 ANGIOECTASIA OF TERMINAL ILEUM, THERMAL THERAPY 01/17 [place], H/O GI BLEEDING WITH ACUTE BLOOD LOSS ANEMIA REQUIRING MTP HOSPITALIZATIONS, AND TRANSFUSIONS, NONE SINCE THERMAL THERAPY CKD 3, BASELINES SCR 1.4 - 1.6 DYSLIPIDEMIA WITH LOW HDL 12/21 23 UNBILICAL HERNIA ALLERGIES NSAID: ELEVATED CREATININE: CONTRAINDICATION SOCIAL HISTORY GENERAL: TOBACCO USE ARE YOU A:NONSMOKER JAINISM [id number] NONE LEARNING BARRIERS / SPECIAL NEEDS BARRIERS TO LEARNING?NO HEARING IMPAIRED?NO VISION IMPAIRED?NO COGNITIVELY IMPAIRED?NO READINESS TO LEARN?YES LEARNING PREFERENCES?NO LEARNING CAPABILITIES PRESENT?YES EMOTIONAL BARRIERS?NO PAIN CLINIC PFS, CLERGY, PUBLIC HEALTH REFERRALS PFS REFERRAL NEEDED?NO CLERGY REFERRAL NEEDED?NO PUBLIC HEALTH REFERRAL NEEDED?NO WAS THE PROVIDER NOTIFIED OF ANY PERTINENT INFO?NO HAS THE PATIENT BEEN EDUCATED REGARDING HIS/HER PLAN OF CARE?YES HAS THE PATIENT BEEN EDUCATED REGARDING PAIN, THE RISK FOR PAIN, THE IMPORTANCE OF EFFECTIVE PAIN MANAGEMENT, AND THE PAIN ASSESSMENT PROCESS?YES REVIEWED BY: 08/29/17 1036 AD. PATIENT: ____. ADVANCE DIRECTIVES HEALTH CARE PROXY?NO WOULD YOU LIKE MORE INFORMATION?NO LIVING WILL?NO WOULD YOU LIKE MORE INFORMATION?NO DOMESTIC VIOLENCE DO YOU FEEL SAFE IN YOUR ENVIRONMENT?YES REVIEW OF SYSTEMS REVIEWED BY: PROVIDER: . CONSTITUTIONAL: ANY CHANGE IN YOUR MEDICAL CONDITION? NO . CHILLS NO . FEVER NO . INFECTION: DO YOU HAVE NEW INFECTIONS? NO . DO YOU HAVE HISTORY OF MRSA? NO . MUSCULOSKELETAL: ANY NEW PATTERNS OF PAIN OR NUMBNESS? NO . GASTROENTEROLOGY: ANY NEW CHANGE IN BOWEL CONTROL? NO . GENITOURINARY: ANY NEW CHANGE IN BLADDER CONTROL? NO . IS THERE A CHANCE YOU COULD BE ? NO . HEMATOLOGY/LYMPH: DO YOU TAKE ANY BLOOD THINNERS? (FOR EXAMPLE- COUMADIN, PLAVIX, AGGRENOX, PLATEL, PRADAXA, OR XARELTO) NO . WHEN WAS YOUR LAST DOSE? DATE: TIME: . NEUROLOGY: HAVE YOU FALLEN IN THE PAST 6 MONTHS? NO . ANY NEW EXTREMITY NUMBNESS OR WEAKNESS? NO . CARDIOLOGY: DO YOU HAVE A PACEMAKER OR DEFIBRILLATOR? NO . RESPIRATORY: HAVE YOU BEEN SICK IN THE PAST WEEK? NO . FEVER NO . FLU LIKE SYMPTOMS? NO . COUGH NO . INTEGUMENTARY: DO YOU HAVE ANY RASHES OR OPEN SORES? NO . ALLERGIC/IMMUNO: ARE YOU ALLERGIC TO SHELLFISH OR IV DYE? NO . ANY NEW ALLERGIES? NO . PSYCHIATRIC: DO YOU HAVE THOUGHTS OF HURTING YOURSELF OR SOMEONE ELSE? NO . ARE YOU ABUSED, NEGLECTED, OR IN AN UNSAFE ENVIRONMENT? NO . ENDOCRINOLOGY: ARE YOU DIABETIC? NO . OTHER: DO YOU NEED ANY PRESCRIPTIONS? NO . IF YES, PLEASE LIST: ____ . ANY NEW PROBLEMS WITH YOUR MEDICATIONS? NO . WHEN DID YOU LAST EAT? 08/28 1900 . WHEN DID YOU LAST DRINK? 08/28 1900 . WHAT DID YOU LAST DRINK? WATER . NAME OF PERSON DRIVING YOU HOME? SISTER-PEARL . DO YOU HAVE ANY OTHER QUESTIONS OR CONCERNS NO . VITAL SIGNS WT 262 LBS, HT 74 IN, BMI 33.64 INDEX, BP 136/85 MM HG, HR 61 /MIN, RR 16 /MIN, TEMP 97.6 F, OXYGEN SAT % 95%, SAFE IN ENV? (Y/N) Y, NA INITIALS AW 0906, REVIEWED BY: AD. ASSESSMENTS SACROILIITIS, NOT ELSEWHERE CLASSIFIED - M46.1 (PRIMARY) PROCEDURES PN SI PRE PROCEDURE DIAGNOSIS SACROILIITIS, SACROILIAC JOINT DYSFUNCTION POST PROCEDURE DIAGNOSIS SACROILIITIS, SACROILIAC JOINT DYSFUNCTION PROCEDURE BILATERAL SACROILIAC JOINT BLOCK SURGEON DR. RADAMES MCKEON INDUSTRIAL SAFETY AND HEALTH TECHNICIAN NONE ANESTHESIA LOCAL WITH IV SEDATION PRE PROCEDURE NOTE PATIENT WITH HISTORY OF CHRONIC LOW BACK PAIN. I EVALUATED THE PATIENT AND REVIEWED THE CHART. I WENT OVER THE RISKS, ALTERNATIVES, AND BENEFITS ASSOCIATED WITH THIS PROCEDURE. PATIENT WOULD LIKE TO MOVE FORWARD WITH IV SEDATION DUE TO DISCOMFORT, PAIN AND ANXIETY ASSOCIATED WITH THE PROCEDURE. THE PATIENT WOULD LIKE TO PROCEED AND GAVE CONSENT TO PERFORM THE PROCEDURE. THE PATIENT DENIES UNEXPLAINABLE WEIGHT LOSS, FEVER, CHILLS, OR NEW CHANGES IN URINARY OR BOWEL CONTROL DESCRIPTION OF PROCEDURE THE PATIENT WAS BROUGHT TO THE PROCEDURE ROOM AND PLACED IN THE PRONE POSITION. THE LUMBOSACRAL AREA WAS CLEANED WITH CHLORAPREP SOLUTION AND DRAPED ASEPTICALLY. THE PROCEDURE WAS DONE UNDER STERILE CONDITIONS. I CHECKED LATERALITY AND THE LEVEL WHERE THE PROCEDURE WAS GOING TO BE PERFORMED WITH THE PATIENT AND THE SUPPORTING STAFF AT THE MOMENT OF THE TIME OUT IN THE PROCEDURE ROOM. UNDER FLUOROSCOPIC GUIDANCE, TARGET POINT WAS SELECTED AT THE LOWER BORDER OF THE RIGHT AND LEFT SACROILIAC JOINT. TARGET POINT WAS SELECTED AFTER MEDIAL ROTATION AND TILT OF THE MAGNIFIER OF THE C-ARM. LIDOCAINE WAS USED TO NUMB THE SKIN AND SUBCUTANEOUS TISSUE BELOW IT. A SPINAL NEEDLE, 22-GAUGE, WAS ADVANCED UNDER FLUOROSCOPIC GUIDANCE AND FOLLOWING PATIENT FEEDBACK UNTIL THE TARGET AREA WAS TOUCHED. THE POSITION OF THE NEEDLE WAS VERIFIED WITH AP AND LATERAL VIEWS. AFTER PROPER POSITION OF THE NEEDLE WAS ACHIEVED, ISOVUE M DYE 30%, 0.25 ML, WAS INJECTED SHOWING SPREAD OF THE DYE. THEN, A SOLUTION OF 20 MG OF KENALOG WAS INJECTED IN RIGHT JOINT WITH 3 ML OF BUPIVACAINE 0.125%. PATIENT RECEIVED VERSED 2 MG AND FENTANYL 100 MCG IV DIVIDED DOSES THERE WAS NO EVIDENCE OF BLOOD, PARESTHESIA OR CEREBROSPINAL FLUID DURING THE PROCEDURE. THE PATIENT WAS SENT TO THE RECOVERY ROOM. THE PATIENT WAS MOVING THE EXTREMITIES AND DOING WELL. THERE WAS NO COMPLICATION DURING THE PROCEDURE. FLUOROSCOPY TIME WAS 25 SECONDS. FACE TO FACE TIME WAS 25 SECONDS. POST PROCEDURE NOTE THE PATIENT WILL BE SEEN IN A FOLLOW UP IN THE NEXT FEW WEEKS. INSTRUCTIONS WERE GIVEN, QUESTIONS WERE ANSWERED, AND THE PATIENT EXPRESSED UNDERSTANDING AND AGREED WITH THE PLAN. I, HEATHER CONDE, DOCUMENTED THE ABOVE INFORMATION ACTING A SCRIBE FOR DR. MCKEON. I HAVE REVIEWED THE ABOVE DOCUMENT, WRITTEN BY HEATHER SALAZAR AND I VERIFY THAT IT IS ACCURATE DIAGNOSTIC IMAGING [facility] FLUORO GUIDANCE (PAIN)[id number] PROCEDURE CODES 52268 INJECT SACROILIAC JOINT, MODIFIERS: 50 [id number] RADXPS IN END [id number] PXD 21859 MOD SED SAME PHYS/QHP 5/>YRS DISPOSITION & COMMUNICATION FOLLOW UP 3 WEEKS ELECTRONICALLY SIGNED BY RADAMES MCKEON MD ON 08/29/2017 AT 02:58 PM EDT DISCLAIMER : THIS IS A VISIT SUMMARY EXTRACTED FROM THE [employer] CHART. IT IS NOT A COPY OF THE [employer] PROGRESS NOTE. MTDD
== END ==
LOC: M PAIN 08:45
PROVIDERS: ATTEND Anesthesiology
DX: G89.29 Other chronic pain (principal); M46.1 Sacroiliitis, not elsewhere classified; M53.88 Other specified dorsopathies, sacral and sacrococcygeal region; K42.9 Umbilical hernia without obstruction or gangrene; N18.3 Chronic kidney disease, stage 3 (moderate); Z88.6 Allergy status to analgesic agent; Z79.891 Long term (current) use of opiate analgesic; Z86.69 Personal history of other diseases of the nervous system and sense organs
CPT/HCPCS: 99152; G0260; J2250; J3010; J3301; Q9967

== ENCOUNTER → 2017-09-22 | Outpatient (CLI) | payer OTHER ==
[~2017-09-22] MED LIST changes: -BUPIVACAINE HCL 0.25% 30 ML VIAL As Ordered ONE; -ISOVUE-M 300 61% 15ML VIAL (Q9967) As Ordered ONE; -LIDOCAINE 1% SDV INJ 30 ML VIAL As Ordered ONE; -MIDAZOLAM INJ 2 MG/2 ML VIAL (J2250) As Ordered ONE; -TRIAMCINOLONE ACETONIDE SUSP 40 MG/ML VIAL (J3301) As Ordered ONE; -fentaNYL 100 MCG/2 ML INJECTION (J3010) As Ordered ONE
--- NOTE | 2017-09-22 23:21 | ECWPNPC ---
PATIENT NAME: EVARISTO HUDSON : 1965 GENDER: MALE VISIT DATE: 09/22/2017 DISCHARGE DATE: 09/22/17 1031 VISIT LOCKED DATE TIME: PHYSICIAN: KIANNA DURON PHYSICIAN PAGER NO: [phone] RESOURCE: KIANNA DURON REASON FOR APPOINTMENT 1. POST PROCEDURE HISTORY OF PRESENT ILLNESS HISTORY OF PRESENT ILLNESS: HERE FOR POST PROCEDURE F/U.HAD BILATERAL SIJ ON 08-29-17.PAIN IS BACK AT HIGH LEVEL VAS 5/10 OVER PAST WEEK.RECIEVED ONE MONTH OF >50% IMPROVEMENT IN LOW BACK THEN PAIN HAS RETURNED.DESCRIBES PAIN CONSTANT AND SHARP.PAIN IS AGGREVATED BY PROLONGED SITTING AND STANDING.USING OXYCODONE 10/325 Q4-6H PRN FOR PAIN WITH GOOD EFFECT. PAIN THE PATIENT DESCRIBES THE PAIN... THE PATIENT DESCRIBES THE PAIN... FALL RISK SCREENING: SCREENING :NO FALLS IN THE PAST YEAR CURRENT MEDICATIONS TAKING BLOOD PRESSURE MONITOR/L CUFF - MISCELLANEOUS DIRECTED I10 DAILY TAKING OXYCODONE HCL 15 MG TABLET 1 TABLET ORALLY Q6H PRN MDD4 MEDICATION LIST REVIEWED AND RECONCILED WITH THE PATIENT PAST MEDICAL HISTORY MIGRAINES VENTRICULAR-SEPTAL DEFECT HX SEIZURES AFTER CRANIOTOMY FOR ARACHNOID CYST IN 2006 ANGIOECTASIA OF TERMINAL ILEUM, THERMAL THERAPY 01/17 [place], H/O GI BLEEDING WITH ACUTE BLOOD LOSS ANEMIA REQUIRING MTP HOSPITALIZATIONS, AND TRANSFUSIONS, NONE SINCE THERMAL THERAPY CKD 3, BASELINES SCR 1.4 - 1.6 DYSLIPIDEMIA WITH LOW HDL 12/21 24 UNBILICAL HERNIA HTN ALLERGIES NSAID: ELEVATED CREATININE: CONTRAINDICATION SURGICAL HISTORY CRANIOTOMY WITH HX OF ARACHNOID CYST 2006 NO PERSONAL OR FHX OF SEVERE REACTION TO ANESTHESIA EGD/COLONOSCOPY/CAPSULE ENDOSCOPY FOR GI BLEED--NEG BX DR SALINAS; HAD RECTAL VESSEL CLIPPED 2008 EGD/COLONOSCOPY--NL DR SALINAS 09/2011 EGD/COLONOSCOPY--MILD ESOPHAGITIS, BX NEG FOR BARRETTS; DR PRISCILA MARES [place] 2011 SOCIAL HISTORY GENERAL: TOBACCO USE ARE YOU A:NONSMOKER [employer]VENT[employer] [id number] NONE LANGUAGE LANGUAGES SPOKEN:MALTESE LEARNING BARRIERS / SPECIAL NEEDS BARRIERS TO LEARNING?NO HEARING IMPAIRED?NO VISION IMPAIRED?NO COGNITIVELY IMPAIRED?NO READINESS TO LEARN?YES LEARNING PREFERENCES?NO LEARNING CAPABILITIES PRESENT?YES EMOTIONAL BARRIERS?NO PAIN CLINIC PFS, CLERGY, PUBLIC HEALTH REFERRALS PFS REFERRAL NEEDED?NO CLERGY REFERRAL NEEDED?NO PUBLIC HEALTH REFERRAL NEEDED?NO WAS THE PROVIDER NOTIFIED OF ANY PERTINENT INFO?NO HAS THE PATIENT BEEN EDUCATED REGARDING HIS/HER PLAN OF CARE?YES HAS THE PATIENT BEEN EDUCATED REGARDING PAIN, THE RISK FOR PAIN, THE IMPORTANCE OF EFFECTIVE PAIN MANAGEMENT, AND THE PAIN ASSESSMENT PROCESS?YES REVIEWED BY: 08/29/17 1036 AD. PATIENT: ____. ADVANCE DIRECTIVES HEALTH CARE PROXY?NO WOULD YOU LIKE MORE INFORMATION?NO LIVING WILL?NO WOULD YOU LIKE MORE INFORMATION?NO DOMESTIC VIOLENCE DO YOU FEEL SAFE IN YOUR ENVIRONMENT?YES HOSPITALIZATION/MAJOR DIAGNOSTIC PROCEDURE LOWER GI BLEEDING, MTP HOSPITALIZATIONS [id number] REVIEW OF SYSTEMS REVIEWED BY: PROVIDER: KIANNA MOE . CONSTITUTIONAL: ANY CHANGE IN YOUR MEDICAL CONDITION? NO . CHILLS NO . FEVER NO . INFECTION: DO YOU HAVE NEW INFECTIONS? NO . DO YOU HAVE HISTORY OF MRSA? NO . MUSCULOSKELETAL: ANY NEW PATTERNS OF PAIN OR NUMBNESS? NO . GASTROENTEROLOGY: ANY NEW CHANGE IN BOWEL CONTROL? NO . GENITOURINARY: ANY NEW CHANGE IN BLADDER CONTROL? NO . IS THERE A CHANCE YOU COULD BE ? NO . HEMATOLOGY/LYMPH: DO YOU TAKE ANY BLOOD THINNERS? (FOR EXAMPLE- COUMADIN, PLAVIX, AGGRENOX, PLATEL, PRADAXA, OR XARELTO) NO . WHEN WAS YOUR LAST DOSE? DATE: TIME: . NEUROLOGY: HAVE YOU FALLEN IN THE PAST 6 MONTHS? NO . ANY NEW EXTREMITY NUMBNESS OR WEAKNESS? NO . CARDIOLOGY: DO YOU HAVE A PACEMAKER OR DEFIBRILLATOR? NO, PT STATES HE TAKES LISINOPRIL FOR HTN, CAN'T REMEMBER DOSE . RESPIRATORY: HAVE YOU BEEN SICK IN THE PAST WEEK? NO . FEVER NO . FLU LIKE SYMPTOMS? NO . COUGH NO . INTEGUMENTARY: DO YOU HAVE ANY RASHES OR OPEN SORES? NO . ALLERGIC/IMMUNO: ARE YOU ALLERGIC TO SHELLFISH OR IV DYE? NO . ANY NEW ALLERGIES? NO . PSYCHIATRIC: DO YOU HAVE THOUGHTS OF HURTING YOURSELF OR SOMEONE ELSE? NO . ARE YOU ABUSED, NEGLECTED, OR IN AN UNSAFE ENVIRONMENT? NO . ENDOCRINOLOGY: ARE YOU DIABETIC? NO . OTHER: DO YOU NEED ANY PRESCRIPTIONS? NO . IF YES, PLEASE LIST: ____ . ANY NEW PROBLEMS WITH YOUR MEDICATIONS? NO . WHEN DID YOU LAST EAT? ____ . WHEN DID YOU LAST DRINK? ____ . WHAT DID YOU LAST DRINK? ____ . NAME OF PERSON DRIVING YOU HOME? ____ . DO YOU HAVE ANY OTHER QUESTIONS OR CONCERNS NO, PT DENIES RECEIVING FLU VACCINE THIS SEASON, NOR DOES HE PLAN TO . VITAL SIGNS WT 262.0 LBS, HT 74 IN, BMI 33.64 INDEX, BP 145/94 MM HG, HR 78 /MIN, RR 16 /MIN, TEMP 96.1 F, OXYGEN SAT % 96%, NA INITIALS TL 1007, REVIEWED BY: EM. EXAMINATION GENERAL EXAMINATION: LUNGS:LUNG SOUNDS ARE CLEAR. HEART:HEART RATE REGULAR. MUSCULOSKELETAL:*, MUSCLE STRENGTH TESTING 5/5 RIGHT AND 3/5 LEFTPALPATION: NEGATIVE FOR PAIN OVER L/S SPINE. POSITIVE FOR PAIN OVER L/S PARSPINALS.SPECIFIC POINT TENDERNESS OVER BILAT. SIJ. DIAGNOSTIC:MRI L/S [id number]-REVIEWED. ASSESSMENTS SACROILIAC JOINT PAIN - M53.3 (PRIMARY) POST LAMINECTOMY SYNDROME - M96.1 TREATMENT SACROILIAC JOINT PAIN NOTES: BILAT SIJ, ISTOP REGISTRY REVIEWED [id number] DEMNOSTRATES COMPLLIANCE. BRINGS IN MEDICATIONS WHICH IS APPROPRIATE FOR WHAT WAS DISPENSED. RECENT URINE TOXICOLOGY REVIEWED. NO UNAUTHORIZED MEDICATIONS. NO ILLICIT SUBSTANCES AND PRESCRIBED MEDICATIONS WERE PRESENT. , RISKS AND BENEFITS OF NARCOTIC/OPIOD MEDICATIONS WERE REVIEWED WITH PATIENT - THIS INCLUDES BUT IS NOT LIMITED TO RISK OF DEPENDANCE/DEVELOPMENT OF ADDICTION, MOOD DISTURBANCE AND DEPRESSION, OSTEOPOROSIS, HORMONAL AND LABIDAL CHANGES, RESPIRATORY DEPRESSION AND . PATIENT IS ADVISED NOT TO DRIVE WHILE ON THESE MEDICATIONS. PROCEDURE CODES FA211 ESTABILISHED PATIENT [facility] CHARGE DISPOSITION & COMMUNICATION FOLLOW UP 2WK POST (REASON: BILAT SIJ) ELECTRONICALLY SIGNED BY PAYAL GONZALES ON 09/22/2017 AT 11:00 AM EST DISCLAIMER : THIS IS A VISIT SUMMARY EXTRACTED FROM THE [employer] CHART. IT IS NOT A COPY OF THE [employer] PROGRESS NOTE. SHAYY
== END ==
LOC: M PAIN 09:30
PROVIDERS: ATTEND Nurse Practitioner Family
DX: M96.1 Postlaminectomy syndrome, not elsewhere classified (principal); M53.3 Sacrococcygeal disorders, not elsewhere classified; K42.9 Umbilical hernia without obstruction or gangrene; R56.9 Unspecified convulsions; I12.9 Hypertensive chronic kidney disease with stage 1 through stage 4 chronic kidney disease, or unspecified chronic kidney disease; N18.3 Chronic kidney disease, stage 3 (moderate); Z88.6 Allergy status to analgesic agent; Z79.891 Long term (current) use of opiate analgesic

== ENCOUNTER → 2017-10-03 | Outpatient (CLI) | payer OTHER ==
[~2017-10-03] MED LIST changes: +ASPI81TA85 PO; +BUPIVACAINE HCL 0.25% 30 ML VIAL As Ordered ONE; +ISOVUE-M 300 61% 15ML VIAL (Q9967) As Ordered ONE; +LIDOCAINE 1% SDV INJ 30 ML VIAL As Ordered ONE; +MIDAZOLAM INJ 2 MG/2 ML VIAL (J2250) As Ordered ONE; +TRIAMCINOLONE ACETONIDE SUSP 40 MG/ML VIAL (J3301) As Ordered ONE; +fentaNYL 100 MCG/2 ML INJECTION (J3010) As Ordered ONE
--- NOTE | 2017-10-03 12:25 | REP ---
PARTIAL SI JOINT SERIES: Two views. HISTORY: SI joint injection for pain. 18 seconds of fluoroscopy time is reported. FINDINGS: A sequence of two last image hold fluoroscopic spot radiographs of the SI joints document needle positions associated with SI joint injection procedure. Signed by Pedrito Genao MD 10/03/2017 01:03 P
--- NOTE | 2017-10-19 00:34 | ECWPNPC ---
PATIENT NAME: EVARISTO HUSDON : 1965 GENDER: MALE VISIT DATE: 10/03/2017 DISCHARGE DATE: 10/03/17 1114 VISIT LOCKED DATE TIME: PHYSICIAN: RADAMES MCKEON PHYSICIAN PAGER NO: [phone] RESOURCE: RADAMES MCKEON REASON FOR APPOINTMENT 1. BILAT SIJ HISTORY OF PRESENT ILLNESS HISTORY OF PRESENT ILLNESS: PAIN THE PATIENT DESCRIBES THE PAIN... FALL RISK SCREENING: SCREENING :NO FALLS IN THE PAST YEAR CURRENT MEDICATIONS TAKING BLOOD PRESSURE MONITOR/L CUFF - MISCELLANEOUS DIRECTED I10 DAILY TAKING OXYCODONE HCL 15 MG TABLET 1 TABLET ORALLY Q6H PRN MDD4, NOTES: 10/02/17 1700 MEDICATION LIST REVIEWED AND RECONCILED WITH THE PATIENT PAST MEDICAL HISTORY MIGRAINES VENTRICULAR-SEPTAL DEFECT HX SEIZURES AFTER CRANIOTOMY FOR ARACHNOID CYST IN 2006 ANGIOECTASIA OF TERMINAL ILEUM, THERMAL THERAPY 01/17 [place], H/O GI BLEEDING WITH ACUTE BLOOD LOSS ANEMIA REQUIRING MTP HOSPITALIZATIONS, AND TRANSFUSIONS, NONE SINCE THERMAL THERAPY CKD 3, BASELINES SCR 1.4 - 1.6 DYSLIPIDEMIA WITH LOW HDL 12/21 24 UNBILICAL HERNIA HTN ALLERGIES NSAID: ELEVATED CREATININE: CONTRAINDICATION REVIEW OF SYSTEMS REVIEWED BY: PROVIDER: . CONSTITUTIONAL: ANY CHANGE IN YOUR MEDICAL CONDITION? NO . CHILLS NO . FEVER NO . INFECTION: DO YOU HAVE NEW INFECTIONS? NO . DO YOU HAVE HISTORY OF MRSA? NO . MUSCULOSKELETAL: ANY NEW PATTERNS OF PAIN OR NUMBNESS? NO . GASTROENTEROLOGY: ANY NEW CHANGE IN BOWEL CONTROL? NO . GENITOURINARY: ANY NEW CHANGE IN BLADDER CONTROL? NO . IS THERE A CHANCE YOU COULD BE ? NO . HEMATOLOGY/LYMPH: DO YOU TAKE ANY BLOOD THINNERS? (FOR EXAMPLE- COUMADIN, PLAVIX, AGGRENOX, PLATEL, PRADAXA, OR XARELTO) NO . WHEN WAS YOUR LAST DOSE? DATE: TIME: . NEUROLOGY: HAVE YOU FALLEN IN THE PAST 6 MONTHS? NO . ANY NEW EXTREMITY NUMBNESS OR WEAKNESS? NO . CARDIOLOGY: DO YOU HAVE A PACEMAKER OR DEFIBRILLATOR? NO . RESPIRATORY: HAVE YOU BEEN SICK IN THE PAST WEEK? NO . FEVER NO . FLU LIKE SYMPTOMS? NO . COUGH NO . INTEGUMENTARY: DO YOU HAVE ANY RASHES OR OPEN SORES? NO . ALLERGIC/IMMUNO: ARE YOU ALLERGIC TO SHELLFISH OR IV DYE? NO . ANY NEW ALLERGIES? NO . PSYCHIATRIC: DO YOU HAVE THOUGHTS OF HURTING YOURSELF OR SOMEONE ELSE? NO . ARE YOU ABUSED, NEGLECTED, OR IN AN UNSAFE ENVIRONMENT? NO . ENDOCRINOLOGY: ARE YOU DIABETIC? NO . OTHER: DO YOU NEED ANY PRESCRIPTIONS? NO . IF YES, PLEASE LIST: ____ . ANY NEW PROBLEMS WITH YOUR MEDICATIONS? NO . WHEN DID YOU LAST EAT? ____10/02/17 2400 . WHEN DID YOU LAST DRINK? ____10/02/17 2400 . WHAT DID YOU LAST DRINK? ____WATER . NAME OF PERSON DRIVING YOU HOME? ____WENDY PODVIN . DO YOU HAVE ANY OTHER QUESTIONS OR CONCERNS NO . VITAL SIGNS WT 262 LBS, HT 74 IN, BMI 33.64 INDEX, BP 156/100 MM HG, REPEAT BP 139/93 MM HG, HR 73 /MIN, RR 18 /MIN, TEMP 97.0 F, OXYGEN SAT % 97%, SAFE IN ENV? (Y/N) YES, NA INITIALS SC 08:55, REVIEWED BY: INO. ASSESSMENTS SACROILIITIS, NOT ELSEWHERE CLASSIFIED - M46.1 (PRIMARY) PROCEDURES PN SI PRE PROCEDURE DIAGNOSIS SACROILIITIS, SACROILIAC JOINT DYSFUNCTION POST PROCEDURE DIAGNOSIS SACROILIITIS, SACROILIAC JOINT DYSFUNCTION PROCEDURE BILATERAL SACROILIAC JOINT BLOCK SURGEON DR. RADAMES MCKEON SPRINKLER FITTER NONE ANESTHESIA LOCAL W/ IV SEDATION PRE PROCEDURE NOTE PATIENT WITH HISTORY OF CHRONIC LOW BACK PAIN. I EVALUATED THE PATIENT AND REVIEWED THE CHART. I WENT OVER THE RISKS, ALTERNATIVES, AND BENEFITS ASSOCIATED WITH THIS PROCEDURE. PATIENT WOULD LIKE TO MOVE FORWARD WITH IV SEDATION DUE TO DISCOMFORT, PAIN AND ANXIETY ASSOCIATED WITH THE PROCEDURE. THE PATIENT WOULD LIKE TO PROCEED AND GAVE CONSENT TO PERFORM THE PROCEDURE. THE PATIENT DENIES UNEXPLAINABLE WEIGHT LOSS, FEVER, CHILLS, OR NEW CHANGES IN URINARY OR BOWEL CONTROL DESCRIPTION OF PROCEDURE THE PATIENT WAS BROUGHT TO THE PROCEDURE ROOM AND PLACED IN THE PRONE POSITION. THE LUMBOSACRAL AREA WAS CLEANED WITH CHLORAPREP SOLUTION AND DRAPED ASEPTICALLY. THE PROCEDURE WAS DONE UNDER STERILE CONDITIONS. I CHECKED LATERALITY AND THE LEVEL WHERE THE PROCEDURE WAS GOING TO BE PERFORMED WITH THE PATIENT AND THE SUPPORTING STAFF AT THE MOMENT OF THE TIME OUT IN THE PROCEDURE ROOM. UNDER FLUOROSCOPIC GUIDANCE, TARGET POINT WAS SELECTED AT THE LOWER BORDER OF THE RIGHT AND LEFT SACROILIAC JOINT. TARGET POINT WAS SELECTED AFTER MEDIAL ROTATION AND TILT OF THE MAGNIFIER OF THE C-ARM. LIDOCAINE WAS USED TO NUMB THE SKIN AND SUBCUTANEOUS TISSUE BELOW IT. A SPINAL NEEDLE, 22-GAUGE, WAS ADVANCED UNDER FLUOROSCOPIC GUIDANCE AND FOLLOWING PATIENT FEEDBACK UNTIL THE TARGET AREA WAS TOUCHED. THE POSITION OF THE NEEDLE WAS VERIFIED WITH AP AND LATERAL VIEWS. AFTER PROPER POSITION OF THE NEEDLE WAS ACHIEVED, ISOVUE M DYE 30%, 0.25 ML, WAS INJECTED SHOWING SPREAD OF THE DYE. THEN, A SOLUTION OF 20 MG OF KENALOG WAS INJECTED IN RIGHT JOINT WITH 3 ML OF BUPIVACAINE 0.125%. PATIENT RECEIVED VERSED 2 MG AND FENTANYL 100 MCG IV DIVIDED DOSES THERE WAS NO EVIDENCE OF BLOOD, PARESTHESIA OR CEREBROSPINAL FLUID DURING THE PROCEDURE. THE PATIENT WAS SENT TO THE RECOVERY ROOM. THE PATIENT WAS MOVING THE EXTREMITIES AND DOING WELL. THERE WAS NO COMPLICATION DURING THE PROCEDURE. FLUOROSCOPY TIME WAS 18 SECONDS. FACE TO FACE TIME WAS 17 POST PROCEDURE NOTE THE PATIENT WILL BE SEEN IN A FOLLOW UP IN THE NEXT FEW WEEKS. INSTRUCTIONS WERE GIVEN, QUESTIONS WERE ANSWERED, AND THE PATIENT EXPRESSED UNDERSTANDING AND AGREED WITH THE PLAN. I, HEATHER CONDE, DOCUMENTED THE ABOVE INFORMATION ACTING A SCRIBE FOR DR. MCKEON. I HAVE REVIEWED THE ABOVE DOCUMENT, WRITTEN BY HEATHER SALAZAR AND I VERIFY THAT IT IS ACCURATE DIAGNOSTIC IMAGING [facility] FLUORO GUIDANCE (PAIN)[id number] PROCEDURE CODES 57827 INJECT SACROILIAC JOINT, MODIFIERS: 50 [id number] RADXPS IN END [id number] PXD DISPOSITION & COMMUNICATION FOLLOW UP 3 WEEKS ELECTRONICALLY SIGNED BY RADAMES MCKEON MD ON 10/18/2017 AT 10:09 PM EST DISCLAIMER : THIS IS A VISIT SUMMARY EXTRACTED FROM THE [employer] CHART. IT IS NOT A COPY OF THE [employer] PROGRESS NOTE. MTDD
== END ==
LOC: M PAIN 08:45
PROVIDERS: ATTEND Anesthesiology
DX: G89.29 Other chronic pain (principal); M46.1 Sacroiliitis, not elsewhere classified; I10 Essential (primary) hypertension; Z79.891 Long term (current) use of opiate analgesic; Z88.8 Allergy status to other drugs, medicaments and biological substances
CPT/HCPCS: 99152; G0260; J2250; J3010; J3301; Q9967

== ENCOUNTER 2017-10-16 18:24 | Emergency (ER) | payer OTHER ==
[~2017-10-16] VITALS: Ht 193 cm; Wt 119.1 kg
[~2017-10-16 18:24] MED LIST changes: -ASPI81TA85 PO; -BUPIVACAINE HCL 0.25% 30 ML VIAL As Ordered ONE; -ISOVUE-M 300 61% 15ML VIAL (Q9967) As Ordered ONE; -LIDOCAINE 1% SDV INJ 30 ML VIAL As Ordered ONE; -MIDAZOLAM INJ 2 MG/2 ML VIAL (J2250) As Ordered ONE; -TRIAMCINOLONE ACETONIDE SUSP 40 MG/ML VIAL (J3301) As Ordered ONE; -fentaNYL 100 MCG/2 ML INJECTION (J3010) As Ordered ONE
[2017-10-16] MEDS ORDERED: ASPIRIN 325 MG TAB PO ONE (19:30)
[2017-10-16 19:37] LABS: BASO # 0.1 10^3/uL (0.0-0.2); BASO % 0.6 % (0.0-1.0); EOS # 0.1 10^3/uL (0.0-0.50); EOS % 0.7 % (0.0-3.0); IMMATURE GRANULOCYTE % 0.8 % (0-0); LYMPH # 2.8 10^3/uL (1.5-4.5); LYMPH % 20.5 % (24.0-44.0); MEAN CORPUSCULAR HEMOGLOBIN 32.2 pg (27.0-33.0); MEAN CORPUSCULAR HGB CONC 34.5 g/dl (32.0-36.5); MEAN CORPUSCULAR VOLUME 93.2 fl (80.0-96.0); MONO # 1.1 10^3/uL (0.0-0.8); MONO % 8.2 % (0.0-5.0); NEUTROPHILS # 9.4 10^3/uL (1.8-7.7); NEUTROPHILS % 69.2 % (36.0-66.0); PLATELET COUNT, AUTOMATED 324 10^3/uL (150-450); RED CELL DISTRIBUTION WIDTH 13.2 % (11.5-14.5); WHITE BLOOD COUNT 13.6 10^3/uL (4.0-10.0)
[2017-10-16 19:46] LABS: INR 0.87
[2017-10-16 19:54] LABS: ANION GAP 10 MEQ/L (8-16); BLOOD UREA NITROGEN 14 MG/DL (7-18); CALCIUM LEVEL 8.7 MG/DL (8.5-10.1); CARBON DIOXIDE LEVEL 24 MEQ/L (21-32); CHLORIDE LEVEL 105 MEQ/L (98-107); CREATININE FOR GFR 1.28 MG/DL (0.70-1.30); GLOMERULAR FILTRATION RATE > 60.0 (>56); GLUCOSE, FASTING 120 MG/DL (70-105); POTASSIUM SERUM 4.2 MEQ/L (3.5-5.1); SODIUM LEVEL 139 MEQ/L (136-145)
[2017-10-16] MEDS ORDERED: ISOVUE-370 76% 100ML VIAL (Q9967) As Ordered ONE (20:21)
[2017-10-16] MEDS ORDERED: traMADol 50 MG TAB PO ONE (20:45)
[2017-10-16] MEDS ORDERED: SILVER SULFADIAZINE 1% CR 50 GM JAR TOP ONE (20:45)
[2017-10-16] MEDS ORDERED: PROMETHAZINE INJ 25 MG/ML VIAL (J2550) IV ONE (20:45)
--- NOTE | 2017-10-16 21:00 | REPUSA ---
CT angiogram of the chest Clinical statement: Chest pain and shortness of breath. Technique: Multiple axial CT images were obtained from the thoracic inlet through the upper abdomen a fter a bolus administration of nonionic intravenous contrast. Coronal and sagittal reconstructions we re also obtained. No comparison is available. Findings: The pulmonary arteries are well-opacified with contrast, with no intraluminal filling defec ts to suggest embolism. The thoracic aorta is unremarkable. Thyroid gland is within normal limits. Th ere is no thoracic lymphadenopathy. There are no pericardial or pleural effusions. The lungs are nadine r. Limited imaging of the upper abdomen is unremarkable. There are no suspicious osseous lesions. Impression: Unremarkable CT examination of the chest. No evidence of pulmonary embolism.
--- NOTE | 2017-10-16 22:20 | REPUSA ---
Clinical history: Pain, swelling. Findings: The common femoral, superficial femoral, popliteal, and other deep venous structures compre ss normally and demonstrate normal color Doppler flow. Normal venous waveforms with augmentation are seen. Impression: No evidence of deep vein thrombosis in the left femoral popliteal venous system.
[2017-10-16 22:55] VITALS: BP 147/95
[2017-10-16] MEDS ORDERED: ASPI81TA85 PO (22:56)
--- NOTE | 2017-10-17 07:20 | ECGEPIP ---
Stationary ECG Study [facility] - ED Test Date: 2017-10-16 Pat Name: EVARISTO HUDSON Department: Room: - Gender: M Policy Manager: osmar : 1965 Requested By: Luis Manuel Ortiz Order Number: [id number] Reading MD: Luis Manuel Thompson Measurements Intervals [place] Rate: 81 P: 31 NH: 158 QRS: 42 QRSD: 111 T: 12 QT: 369 QTc: 429 Interpretive Statements SINUS RHYTHM POSSIBLE LEFT ATRIAL ENLARGEMENT INDETERMINATE AXIS INCOMPLETE RIGHT BUNDLE BRANCH BLOCK POSSIBLE PRIOR INFERIOR INFARCT SIMILAR TO 07/25/16 Electronically Signed On 10-17-2017 7:19:50 EST by Luis Manuel Thompson
--- NOTE | 2017-10-17 07:24 | ECGEPIP ---
Stationary ECG Study [facility] - ED Test Date: 2017-10-16 Pat Name: EVARISTO HUDSON Department: Room: - Gender: M Sales Service Representative: RodriguezB: 1965 Requested By: PHUONG JORDAN Order Number: [id number] Reading MD: Luis Manuel Thompson Measurements Intervals [place] Rate: 63 P: 11 NM: 167 QRS: 14 QRSD: 113 T: 5 QT: 400 QTc: 412 Interpretive Statements SINUS RHYTHM INDETERMINATE AXIS INCOMPLETE RIGHT BUNDLE BRANCH BLOCK POSSIBLE PRIOR INFERIOR INFARCT SIMILAR TO PRIOR ON SAME DATE Electronically Signed On 10-17-2017 7:23:49 EST by Luis Manuel Thompson
== END 2017-10-17 00:14 | disposition home or self-care (01) ==
LOC: M ED 18:24
DX: R07.9 Chest pain, unspecified (principal); I45.2 Bifascicular block; G89.29 Other chronic pain; M54.9 Dorsalgia, unspecified; I23.2 Ventricular septal defect as current complication following acute myocardial infarction; Z79.82 Long term (current) use of aspirin; Z88.8 Allergy status to other drugs, medicaments and biological substances
CPT/HCPCS: 71275; 80048; 82550; 82553; 85025; 85610; 85730; 93005; 93971; 99285; Q9967

== ENCOUNTER 2017-11-25 08:49 | Day surgery (SDC) | payer OTHER ==
[2017-11-25] MEDS ORDERED: NEOSTIGMINE 10 MG/10 ML VIAL (J2710) (08:50)
[2017-11-25] MEDS: LR 1,000 ML IV (09:20)
[2017-11-25] MEDS ORDERED: CEFAZOLIN 100MG/ML SYRINGE 1GM(J0690 PER 500MG) As Ordered (09:35)
[2017-11-25] MEDS ORDERED: PROPOFOL 200 MG/20 ML VIAL As Ordered ×2 (09:42→10:24)
[2017-11-25] MEDS ORDERED: LIDOCAINE 2% INJ 100 MG/5 ML SDV (FOR ANES.) As Ordered (09:42)
[2017-11-25] MEDS ORDERED: ONDANSETRON 4MG/2ML VIAL (J2405) As Ordered ×2 (09:43→11:11)
[2017-11-25] MEDS ORDERED: fentaNYL 100 MCG/2 ML INJECTION (J3010) As Ordered ×2 (09:43→11:13)
[2017-11-25] MEDS ORDERED: KETOROLAC 60 MG/2 ML VIAL (J1885) As Ordered (09:43)
[2017-11-25] MEDS ORDERED: METOCLOPRAMIDE INJ 10MG/2ML VIAL (J2765) As Ordered (09:43)
[2017-11-25] MEDS ORDERED: MIDAZOLAM INJ 2 MG/2 ML VIAL (J2250) As Ordered (09:43)
[2017-11-25] MEDS: CEFAZOLIN SOD 1 GM in APPROPRIATE DILUENT 1 EA IV (09:52)
[2017-11-25] MEDS ORDERED: PHENYLEPHRINE INJ 10MG/ML VIAL (J2370) As Ordered (10:24)
[2017-11-25] MEDS ORDERED: ePHEDrine INJ 50 MG/ML VIAL As Ordered (10:39)
[2017-11-25] MEDS: LIDOCAINE W/EPINEPHRINE 1% 20ML VIAL As Ordered (10:46)
[2017-11-25] MEDS: BUPIVACAINE HCL 0.25% 30 ML VIAL As Ordered (10:46)
[2017-11-25] MEDS ORDERED: NEOSTIGMINE 10 MG/10 ML VIAL (J2710) As Ordered (10:53)
[2017-11-25] MEDS ORDERED: GLYCOPYRROLATE INJ 0.2 MG/ML 2 ML VIAL As Ordered (10:53)
[2017-11-25] MEDS: ONDANSETRON 4MG/2ML VIAL (J2405) IV (11:13)
[2017-11-25] MEDS: fentaNYL 100 MCG/2 ML INJECTION (J3010) IV ×4 (11:15→11:30)
[2017-11-25] MEDS ORDERED: ONDANSETRON 4MG/2ML VIAL (J2405) IV (11:30)
[2017-11-25] MEDS ORDERED: NORCO, ANEXSIA 5/325MG TABLET (HYDROcodone/ACETAMINOPHEN) PO (11:30)
[2017-11-25] MEDS ORDERED: LR 1,000 ML IV ×2 (11:30)
[2017-11-25] MEDS ORDERED: HYDROmorphone HCL 1 MG/ML SYRINGE (J1170) As Ordered (11:33)
[2017-11-25] MEDS: HYDROmorphone HCL 1 MG/ML SYRINGE (J1170) IV ×7 (11:35→12:57)
[2017-11-25] MEDS: METOCLOPRAMIDE INJ 10MG/2ML VIAL (J2765) IV (11:40)
[2017-11-25] MEDS ORDERED: KETOROLAC 30 MG/ML VIAL (J1885) IV (12:00)
[2017-11-25] MEDS: PERCOCET 5MG/325MG TAB PO (12:10)
[2017-11-25] MEDS: MORPHINE 2 MG/ML 1ML SYRINGE IV (12:22)
== END 2017-11-25 13:48 | disposition home or self-care (01) ==
LOC: M SDC 08:49
DX: K42.9 Umbilical hernia without obstruction or gangrene (principal); I10 Essential (primary) hypertension; M54.9 Dorsalgia, unspecified; D33.2 Benign neoplasm of brain, unspecified; R42 Dizziness and giddiness; G43.909 Migraine, unspecified, not intractable, without status migrainosus; R06.83 Snoring; R23.3 Spontaneous ecchymoses; Z88.8 Allergy status to other drugs, medicaments and biological substances; Z79.82 Long term (current) use of aspirin; Z79.899 Other long term (current) drug therapy
CPT/HCPCS: 49585

== ENCOUNTER → 2018-02-17 | Outpatient (CLI) | payer OTHER | LOC: M PAIN 13:15 | DX: G89.29 Other chronic pain (principal); M53.3 Sacrococcygeal disorders, not elsewhere classified; M54.5 Low back pain; G43.909 Migraine, unspecified, not intractable, without status migrainosus; N18.3 Chronic kidney disease, stage 3 (moderate); E78.5 Hyperlipidemia, unspecified; I12.9 Hypertensive chronic kidney disease with stage 1 through stage 4 chronic kidney disease, or unspecified chronic kidney disease; Z79.891 Long term (current) use of opiate analgesic; Z79.899 Other long term (current) drug therapy; Z88.6 Allergy status to analgesic agent | CPT/HCPCS: G0463 ==

== ENCOUNTER → 2018-02-23 | Outpatient (CLI) | payer OTHER ==
[~2018-02-23] MED LIST changes: -*BLDWK10; -*CXR; -*ECHO -; -ACET1TAB18 PO; -AMITRIP25 PO; -AMO500 PO; -AUG500 PO; -AUGXR10 PO; -Advil PO; +BUPIVACAINE HCL 0.25% 30 ML VIAL As Ordered; -DEPA500T; -DEPAKOTE; -DILA2TAB; -DILAUDID; -DOXYCYC100; -EFFEXORXL3 PO; -EFFEXORXL7 PO; -ELOCONCR TOPICAL; -GABA-279 PO; -IMITREX100 PO; -INDOCIN PO; +ISOVUE-M 300 61% 15ML VIAL (Q9967) As Ordered; -LEVA750T; +LIDOCAINE 1% SDV INJ 30 ML VIAL As Ordered; -LUNESTA2 PO; -LYRICA75 PO; -MAXALYMLT1 PO; -MECLIZIN PO; +MIDAZOLAM INJ 2 MG/2 ML VIAL (J2250) As Ordered; -MIRALAX PO; -No Historical Meds; -OXYC15TA76 PO; -PAXIL20; -PERC10TA26 PO; -PRILOSEC PO; -SOMA350T PO; -TOPA50TA8 PO; +TRIAMCINOLONE ACETONIDE SUSP 40 MG/ML VIAL (J3301) As Ordered; -TUSSI; -TUSSIONEX PO; -TYL325 PO; -ULTRAM50 PO; -VALIUM PO; -VICO5TAB16 PO; -VICODIN PO; -VOLT1GEL15 TD; -WELLBSR150; +fentaNYL 100 MCG/2 ML INJECTION (J3010) As Ordered
== END ==
LOC: M PAIN 11:30
DX: G89.29 Other chronic pain (principal); M46.1 Sacroiliitis, not elsewhere classified; G43.909 Migraine, unspecified, not intractable, without status migrainosus; N18.3 Chronic kidney disease, stage 3 (moderate); E78.5 Hyperlipidemia, unspecified; I12.9 Hypertensive chronic kidney disease with stage 1 through stage 4 chronic kidney disease, or unspecified chronic kidney disease; K42.9 Umbilical hernia without obstruction or gangrene; Q21.0 Ventricular septal defect; Z88.6 Allergy status to analgesic agent; Z79.891 Long term (current) use of opiate analgesic
CPT/HCPCS: J3301

== ENCOUNTER → 2018-04-11 | Outpatient (CLI) | payer OTHER | LOC: M PAIN 15:15 | DX: M53.3 Sacrococcygeal disorders, not elsewhere classified (principal); G43.909 Migraine, unspecified, not intractable, without status migrainosus; N18.3 Chronic kidney disease, stage 3 (moderate); E78.5 Hyperlipidemia, unspecified; K42.9 Umbilical hernia without obstruction or gangrene; I12.9 Hypertensive chronic kidney disease with stage 1 through stage 4 chronic kidney disease, or unspecified chronic kidney disease; Q21.0 Ventricular septal defect; Z79.891 Long term (current) use of opiate analgesic; Z79.899 Other long term (current) drug therapy; Z88.6 Allergy status to analgesic agent | CPT/HCPCS: G0463 ==

== ENCOUNTER → 2018-04-19 | Outpatient (CLI) | payer OTHER | LOC: M PAIN 08:45 | DX: G89.29 Other chronic pain (principal); M46.1 Sacroiliitis, not elsewhere classified; M54.5 Low back pain; I10 Essential (primary) hypertension; Z79.891 Long term (current) use of opiate analgesic; Z79.899 Other long term (current) drug therapy; Z88.8 Allergy status to other drugs, medicaments and biological substances | CPT/HCPCS: J3301 ==

== ENCOUNTER → 2018-06-15 | Outpatient (CLI) | payer OTHER | LOC: M PAIN 14:30 | DX: M53.3 Sacrococcygeal disorders, not elsewhere classified (principal); I10 Essential (primary) hypertension; Z79.891 Long term (current) use of opiate analgesic; Z79.899 Other long term (current) drug therapy; Z88.8 Allergy status to other drugs, medicaments and biological substances | CPT/HCPCS: G0463 ==

== ENCOUNTER 2018-06-29 09:57 | Emergency (ER) | payer OTHER | END 2018-06-29 10:33 | disposition home or self-care (01) | LOC: M ED 09:57 | DX: T24.122A Burn of first degree of left knee, initial encounter (principal); T24.121A Burn of first degree of right knee, initial encounter; T24.112A Burn of first degree of left thigh, initial encounter; T24.111A Burn of first degree of right thigh, initial encounter; T24.101A Burn of first degree of unspecified site of right lower limb, except ankle and foot, initial encounter; T24.102A Burn of first degree of unspecified site of left lower limb, except ankle and foot, initial encounter; X10.0XXA Contact with hot drinks, initial encounter; Y92.9 Unspecified place or not applicable; I10 Essential (primary) hypertension | CPT/HCPCS: 99282 ==

== ENCOUNTER → 2018-11-02 | Outpatient (CLI) | payer OTHER ==
[~2018-11-02] MED LIST changes: +*BLDWK10; +*CXR; +*ECHO -; +ACET1TAB18 PO; +AMITRIP25 PO; +AMO500 PO; +ASPI81TA85 PO; +AUG500 PO; +AUGXR10 PO; +Advil PO; -BUPIVACAINE HCL 0.25% 30 ML VIAL As Ordered; +DEPA500T; +DEPAKOTE; +DILA2TAB; +DILAUDID; +DOXYCYC100; +EFFEXORXL3 PO; +EFFEXORXL7 PO; +ELOCONCR TOPICAL; +GABA-1171 PO; +IMITREX100 PO; +INDOCIN PO; -ISOVUE-M 300 61% 15ML VIAL (Q9967) As Ordered; +LEVA750T; -LIDOCAINE 1% SDV INJ 30 ML VIAL As Ordered; +LISI10TA4 PO; +LUNESTA2 PO; +LYRICA75 PO; +MAXALYMLT1 PO; +MECLIZIN PO; -MIDAZOLAM INJ 2 MG/2 ML VIAL (J2250) As Ordered; +MIRALAX PO; +No Historical Meds; +OXYC15TA76 PO; +PAXIL20; +PERC10TA26 PO; +PRILOSEC PO; +SOMA350T PO; +TOPA50TA8 PO; -TRIAMCINOLONE ACETONIDE SUSP 40 MG/ML VIAL (J3301) As Ordered; +TUSSI; +TUSSIONEX PO; +TYL325 PO; +ULTRAM50 PO; +VALIUM PO; +VICO5TAB16 PO; +VICODIN PO; +VOLT1GEL15 TD; +WELLBSR150; -fentaNYL 100 MCG/2 ML INJECTION (J3010) As Ordered
--- NOTE | 2018-11-26 23:59 | ECWPNPC ---
PATIENT NAME: EVARISTO HUDSON : 1965 GENDER: MALE VISIT DATE: 11/02/2018 DISCHARGE DATE: 11/02/18 1005 VISIT LOCKED DATE TIME: PHYSICIAN: KIANNA DURON PHYSICIAN PAGER NO: [phone] RESOURCE: KIANNA DURON REASON FOR APPOINTMENT 1. BACK PAIN F/U HISTORY OF PRESENT ILLNESS HISTORY OF PRESENT ILLNESS: HERE FOR F/U AND MANAGEMENT OF CHRONIC LOW BACK PAIN.HISTORY OF POST LAMINECTOMY PAIN SYNDROME.HAS BEEN WITHOUT PAIN MEDICATION FOR SEVERAL MONTHS.PAIN IS INCREASED OVER THE PAST MONTH.RESPONDS WELL TO SIJ INJECTIONS.DISCUSSED MEDICATION AND TREATMENT OPTIONS.RATING PAIN VAS 6/10. PAIN THE PATIENT DESCRIBES THE PAIN... FALL RISK SCREENING: SCREENING :NO FALLS IN THE PAST YEAR CURRENT MEDICATIONS TAKING LISINOPRIL 20 MG TABLET 1 TABLET ORALLY ONCE A DAY, NOTES: 07/02/18 2000 TAKING EXCEDRIN MIGRAINE 250-250-65 MG TABLET 2 TABLETS ORALLY ONCE DAILY NEEDED NOT-TAKING OXYCODONE HCL 15 MG TABLET 1 TABLET ORALLY 1 Q4-6H PRN MDD4, NOTES: 07/02/18 0800 NOT-TAKING BLOOD PRESSURE MONITOR/L CUFF - MISCELLANEOUS DIRECTED I10 DAILY MEDICATION LIST REVIEWED AND RECONCILED WITH THE PATIENT PAST MEDICAL HISTORY MIGRAINES VENTRICULAR-SEPTAL DEFECT HX SEIZURES AFTER CRANIOTOMY FOR ARACHNOID CYST IN 2006 ANGIOECTASIA OF TERMINAL ILEUM, THERMAL THERAPY 01/17 [place], H/O GI BLEEDING WITH ACUTE BLOOD LOSS ANEMIA REQUIRING MTP HOSPITALIZATIONS, AND TRANSFUSIONS, NONE SINCE THERMAL THERAPY CKD 3, BASELINES SCR 1.4 - 1.6 DYSLIPIDEMIA WITH LOW HDL 12/21 23 UNBILICAL HERNIA HTN ALLERGIES NSAID: ELEVATED CREATININE: CONTRAINDICATION SURGICAL HISTORY CRANIOTOMY WITH HX OF ARACHNOID CYST 2006 NO PERSONAL OR FHX OF SEVERE REACTION TO ANESTHESIA EGD/COLONOSCOPY/CAPSULE ENDOSCOPY FOR GI BLEED--NEG BX DR SALINAS; HAD RECTAL VESSEL CLIPPED 2008 EGD/COLONOSCOPY--NL DR SALINAS 09/2011 EGD/COLONOSCOPY--MILD ESOPHAGITIS, BX NEG FOR BARRETTS; DR PRISCILA MARES [place] 2011 FAMILY HISTORY FATHER: MOTHER: ALIVE SIBLINGS: DIAGNOSED WITH HYPERTENSION 3 SISTER(S) . 2 SON(S) , 3 DAUGHTER(S) - HEALTHY. SON WITH HOLE IN HIS HEART. SOCIAL HISTORY GENERAL: TOBACCO USE ARE YOU A:NONSMOKER ALCOHOL SCREENING DID YOU HAVE A DRINK CONTAINING ALCOHOL IN THE PAST YEAR?NO POINTS0 INTERPRETATIONNEGATIVE RECREATIONAL DRUG USE DRUG USE?NO CAFFEINE CAFFEINE USE?YES HOW OFTEN AND HOW MUCH? 1 CUP COFFEE/DAY CHURCH [id number] NONE LANGUAGE LANGUAGES SPOKEN:PERSIAN LEARNING BARRIERS / SPECIAL NEEDS BARRIERS TO LEARNING?NO HEARING IMPAIRED?NO VISION IMPAIRED?NO COGNITIVELY IMPAIRED?NO READINESS TO LEARN?YES LEARNING PREFERENCES?NO LEARNING CAPABILITIES PRESENT?YES EMOTIONAL BARRIERS?NO DOMESTIC VIOLENCE DO YOU FEEL SAFE IN YOUR ENVIRONMENT?YES PAIN CLINIC PFS, CLERGY, PUBLIC HEALTH REFERRALS PFS REFERRAL NEEDED?NO CLERGY REFERRAL NEEDED?NO PUBLIC HEALTH REFERRAL NEEDED?NO WAS THE PROVIDER NOTIFIED OF ANY PERTINENT INFO?NO N/A HAS THE PATIENT BEEN EDUCATED REGARDING HIS/HER PLAN OF CARE?YES HAS THE PATIENT BEEN EDUCATED REGARDING PAIN, THE RISK FOR PAIN, THE IMPORTANCE OF EFFECTIVE PAIN MANAGEMENT, AND THE PAIN ASSESSMENT PROCESS?YES ADVANCE DIRECTIVE ADVANCE DIRECTIVE DISCUSSED WITH PATIENT:YES 11/02/18924 PT DECLINED INFORMATION OR ASSISTANCE ON HCP 07/20/18924 REVIEWED WITH PT. AD07/03/18 1140 REVIEWED WITH PT LAS11/02/18 0920 REVIEWED WITH PT LAS. HOSPITALIZATION/MAJOR DIAGNOSTIC PROCEDURE LOWER GI BLEEDING, MTP HOSPITALIZATIONS [id number] REVIEW OF SYSTEMS REVIEWED BY: PROVIDER: KIANNA MOE . CONSTITUTIONAL: ANY CHANGE IN YOUR MEDICAL CONDITION? NO . CHILLS NO . FEVER NO . INFECTION: DO YOU HAVE NEW INFECTIONS? NO . DO YOU HAVE HISTORY OF MRSA? NO . MUSCULOSKELETAL: ANY NEW PATTERNS OF PAIN OR NUMBNESS? NO . GASTROENTEROLOGY: ANY NEW CHANGE IN BOWEL CONTROL? NO . GENITOURINARY: ANY NEW CHANGE IN BLADDER CONTROL? NO . IS THERE A CHANCE YOU COULD BE ? NO . HEMATOLOGY/LYMPH: DO YOU TAKE ANY BLOOD THINNERS? (FOR EXAMPLE- COUMADIN, PLAVIX, AGGRENOX, PLATEL, PRADAXA, OR XARELTO) NO . WHEN WAS YOUR LAST DOSE? DATE: TIME: . NEUROLOGY: HAVE YOU FALLEN IN THE PAST 6 MONTHS? NO . ANY NEW EXTREMITY NUMBNESS OR WEAKNESS? NO . CARDIOLOGY: DO YOU HAVE A PACEMAKER OR DEFIBRILLATOR? NO . RESPIRATORY: HAVE YOU BEEN SICK IN THE PAST WEEK? NO . FEVER NO . FLU LIKE SYMPTOMS? NO . COUGH NO . INTEGUMENTARY: DO YOU HAVE ANY RASHES OR OPEN SORES? NO . ALLERGIC/IMMUNO: ARE YOU ALLERGIC TO SHELLFISH OR IV DYE? NO . ANY NEW ALLERGIES? NO . PSYCHIATRIC: DO YOU HAVE THOUGHTS OF HURTING YOURSELF OR SOMEONE ELSE? NO . ARE YOU ABUSED, NEGLECTED, OR IN AN UNSAFE ENVIRONMENT? NO . ENDOCRINOLOGY: ARE YOU DIABETIC? NO . OTHER: DO YOU NEED ANY PRESCRIPTIONS? YES . IF YES, PLEASE LIST: ____OXYCODONE . ANY NEW PROBLEMS WITH YOUR MEDICATIONS? NO . WHEN DID YOU LAST EAT? ____ . WHEN DID YOU LAST DRINK? ____ . WHAT DID YOU LAST DRINK? ____ . NAME OF PERSON DRIVING YOU HOME? ____ . DO YOU HAVE ANY OTHER QUESTIONS OR CONCERNS NO . VITAL SIGNS WT 263 LBS, HT 74 IN, BMI 33.76 INDEX, BP 144/75 MM HG, HR 83 /MIN, RR 18 /MIN, TEMP 97.1 F, OXYGEN SAT % 98%, SAFE IN ENV? (Y/N) YES, NA INITIALS IN 09:01, REVIEWED BY: INO. EXAMINATION GENERAL EXAMINATION: GENERAL APPEARANCE:ALERT,NO DISTRESS . PSYCHAFFECT NORMAL . LUNGS:LUNG SOUNDS ARE CLEAR . HEART:HEART RATE REGULAR . MUSCULOSKELETAL:MST 5/5 BILAT. LOWER EXTREMITIES . LUMBAR SACRAL SPINE TENDERNESS BILAT. SIJ . DIAGNOSTIC TESTS REVIEWEDMRI L/S [id number] . ASSESSMENTS SACROILIAC JOINT PAIN - M53.3 (PRIMARY) POSTLAMINECTOMY SYNDROME, NOT ELSEWHERE CLASSIFIED - M96.1 TREATMENT SACROILIAC JOINT PAIN REFILL OXYCODONE HCL TABLET, 15 MG, 1 TABLET, ORALLY, Q8H PRN MDD3, 30 DAY(S), 90, REFILLS 0, NOTES: 07/02/18 0800 NOTES: BILAT. SIJ IV SEDATION, ISTOP REGISTRY REVIEWED AND DEMONSTRATES COMPLLIANCE. (REF #[id number] ) BRINGS IN MEDICATIONS WHICH IS APPROPRIATE FOR WHAT WAS DISPENSED. RECENT URINE TOXICOLOGY REVIEWED. NO UNAUTHORIZED MEDICATIONS. NO ILLICIT SUBSTANCES AND PRESCRIBED MEDICATIONS WERE PRESENT. , RISKS AND BENEFITS OF NARCOTIC/OPIOD MEDICATIONS WERE REVIEWED WITH PATIENT - THIS INCLUDES BUT IS NOT LIMITED TO RISK OF DEPENDANCE/DEVELOPMENT OF ADDICTION, MOOD DISTURBANCE AND DEPRESSION, OSTEOPOROSIS, HORMONAL AND LABIDAL CHANGES, RESPIRATORY DEPRESSION AND . PATIENT IS ADVISED NOT TO DRIVE OR DRINK ALCOHOL WHILE ON THESE MEDICATIONS, RISKS AND BENEFITS OF NARCOTIC/OPIOD MEDICATIONS WERE REVIEWED WITH PATIENT - THIS INCLUDES BUT IS NOT LIMITED TO RISK OF DEPENDANCE/DEVELOPMENT OF ADDICTION, MOOD DISTURBANCE AND DEPRESSION, OSTEOPOROSIS, HORMONAL AND LABIDAL CHANGES, RESPIRATORY DEPRESSION AND . PATIENT IS ADVISED NOT TO DRIVE OR DRINK ALCOHOL WHILE ON THESE MEDICATIONS. PREVENTIVE MEDICINE PAIN CLINIC TEACHING: PROCEDURE TEACHING SIJ INFORMATION REVIEWED WITH PT, PT VERBALIZES UNDERSTANDING. 11/02/18 1000 LAS. PROCEDURE CODES FA211 ESTABILISHED PATIENT [facility] CHARGE DISPOSITION & COMMUNICATION FOLLOW UP POST (REASON: BILAT. SIJ IV SED APT) ELECTRONICALLY SIGNED BY PAYAL JACOBO ON 11/26/2018 AT 05:35 PM EST DISCLAIMER : THIS IS A VISIT SUMMARY EXTRACTED FROM THE [employer] CHART. IT IS NOT A COPY OF THE [employer] PROGRESS NOTE. SHAYY
== END ==
LOC: M PAIN 09:00
PROVIDERS: ATTEND Nurse Practitioner Family
DX: M53.3 Sacrococcygeal disorders, not elsewhere classified (principal); M96.1 Postlaminectomy syndrome, not elsewhere classified; N18.3 Chronic kidney disease, stage 3 (moderate); I12.9 Hypertensive chronic kidney disease with stage 1 through stage 4 chronic kidney disease, or unspecified chronic kidney disease; G43.909 Migraine, unspecified, not intractable, without status migrainosus; R56.9 Unspecified convulsions; Z79.899 Other long term (current) drug therapy; Z88.6 Allergy status to analgesic agent; Z87.74 Personal history of (corrected) congenital malformations of heart and circulatory system

== ENCOUNTER → 2018-11-14 | Outpatient (CLI) | payer OTHER ==
--- NOTE | 2018-11-29 00:19 | ECWPNPC ---
PATIENT NAME: EVARISTO HUDSON : 1965 GENDER: MALE VISIT DATE: 11/14/2018 DISCHARGE DATE: 11/14/18 1742 VISIT LOCKED DATE TIME: PHYSICIAN: RADAMES MCKEON MD PHYSICIAN PAGER NO: [phone] RESOURCE: RADAMES MCKEON MD REASON FOR APPOINTMENT 1. PRE IV SEDATION HISTORY OF PRESENT ILLNESS HISTORY OF PRESENT ILLNESS: PAIN THE PATIENT DESCRIBES THE PAIN... 53 YEAR OLD MALE PATIENT WITH A HISTORY OF CHRONIC LOW BACK PAIN. THE PATIENT DESCRIBES THE PAIN ACHING, SHARP, SHOOTING, AND CONTINUOUS WITH A PAIN SCORE OF 6-9/10 DEPENDING ON PHYSICAL ACTIVITY. THE PATIENT REPORTS THAT HIS PAIN IS MAINLY LOCATED IN HIS LOW BACK AREA ON THE LEFT SIDE TOWARDS HIS LEFT LEG. THE PATIENT HAS HAD A SACROILIAC JOINT INJECTION IN THE PAST AND SAYS HE HAS HAD RELIEF FOR MONTHS AFTER THE INJECTION. PATIENT DENIES UNEXPLAINABLE WEIGHT LOSS, FEVER, CHILLS, NEW CHANGES ON HIS URINARY OR BOWEL CONTROL. FALL RISK SCREENING: SCREENING :NO FALLS IN THE PAST YEAR CURRENT MEDICATIONS TAKING EXCEDRIN MIGRAINE 250-250-65 MG TABLET 2 TABLETS ORALLY ONCE DAILY NEEDED TAKING OXYCODONE HCL 15 MG TABLET 1 TABLET ORALLY Q8H PRN MDD3, NOTES: 07/02/18 0800 TAKING LISINOPRIL 20 MG TABLET 1 TABLET ORALLY ONCE A DAY, NOTES: 07/02/18 2000 NOT-TAKING BLOOD PRESSURE MONITOR/L CUFF - MISCELLANEOUS DIRECTED I10 DAILY MEDICATION LIST REVIEWED AND RECONCILED WITH THE PATIENT PAST MEDICAL HISTORY MIGRAINES VENTRICULAR-SEPTAL DEFECT HX SEIZURES AFTER CRANIOTOMY FOR ARACHNOID CYST IN 2006 ANGIOECTASIA OF TERMINAL ILEUM, THERMAL THERAPY 01/17 [place], H/O GI BLEEDING WITH ACUTE BLOOD LOSS ANEMIA REQUIRING [facility]TP HOSPITALIZATIONS, AND TRANSFUSIONS, NONE SINCE THERMAL THERAPY CKD 3, BASELINES SCR 1.4 - 1.6 DYSLIPIDEMIA WITH LOW HDL 12/21 23 UNBILICAL HERNIA HTN ALLERGIES NSAID: ELEVATED CREATININE: CONTRAINDICATION SURGICAL HISTORY CRANIOTOMY WITH HX OF ARACHNOID CYST 2006 NO PERSONAL OR FHX OF SEVERE REACTION TO ANESTHESIA EGD/COLONOSCOPY/CAPSULE ENDOSCOPY FOR GI BLEED--NEG BX DR SALINAS; HAD RECTAL VESSEL CLIPPED 2008 EGD/COLONOSCOPY--NL DR SALINAS 09/2011 EGD/COLONOSCOPY--MILD ESOPHAGITIS, BX NEG FOR BARRETTS; DR PRISCILA MARES 2011 FAMILY HISTORY FATHER: MOTHER: ALIVE SIBLINGS: DIAGNOSED WITH HYPERTENSION 3 SISTER(S) . 2 SON(S) , 3 DAUGHTER(S) - HEALTHY. SON WITH HOLE IN HIS HEART. SOCIAL HISTORY GENERAL: TOBACCO USE ARE YOU A:NONSMOKER ALCOHOL SCREENING DID YOU HAVE A DRINK CONTAINING ALCOHOL IN THE PAST YEAR?NO POINTS0 INTERPRETATIONNEGATIVE RECREATIONAL DRUG USE DRUG USE?NO CAFFEINE CAFFEINE USE?YES HOW OFTEN AND HOW MUCH? 1 CUP COFFEE/DAY ADVENTISM [id number] NONE LANGUAGE LANGUAGES SPOKEN:ANDORRAN LEARNING BARRIERS / SPECIAL NEEDS BARRIERS TO LEARNING?NO HEARING IMPAIRED?NO VISION IMPAIRED?NO COGNITIVELY IMPAIRED?NO READINESS TO LEARN?YES LEARNING PREFERENCES?NO LEARNING CAPABILITIES PRESENT?YES EMOTIONAL BARRIERS?NO DOMESTIC VIOLENCE DO YOU FEEL SAFE IN YOUR ENVIRONMENT?YES PAIN CLINIC PFS, CLERGY, PUBLIC HEALTH REFERRALS PFS REFERRAL NEEDED?NO CLERGY REFERRAL NEEDED?NO PUBLIC HEALTH REFERRAL NEEDED?NO WAS THE PROVIDER NOTIFIED OF ANY PERTINENT INFO?NO N/A HAS THE PATIENT BEEN EDUCATED REGARDING HIS/HER PLAN OF CARE?YES HAS THE PATIENT BEEN EDUCATED REGARDING PAIN, THE RISK FOR PAIN, THE IMPORTANCE OF EFFECTIVE PAIN MANAGEMENT, AND THE PAIN ASSESSMENT PROCESS?YES ADVANCE DIRECTIVE ADVANCE DIRECTIVE DISCUSSED WITH PATIENT:YES 11/14/18 1625 LAS PT DECLINED INFORMATION OR ASSISTANCE ON HCP 07/20/18 0925 REVIEWED WITH PT. AD07/03/18 1140 REVIEWED WITH PT LAS11/02/18 0920 REVIEWED WITH PT LAS11/14/18 1625 LAS REVIEWED WITH PT. HOSPITALIZATION/MAJOR DIAGNOSTIC PROCEDURE LOWER GI BLEEDING, [facility]PITALIZATIONS [id number] REVIEW OF SYSTEMS REVIEWED BY: PROVIDER: RADAMES MCKEON MD . CONSTITUTIONAL: ANY CHANGE IN YOUR MEDICAL CONDITION? NO . CHILLS NO . FEVER NO . INFECTION: DO YOU HAVE NEW INFECTIONS? NO . DO YOU HAVE HISTORY OF MRSA? NO . MUSCULOSKELETAL: ANY NEW PATTERNS OF PAIN OR NUMBNESS? NO . GASTROENTEROLOGY: ANY NEW CHANGE IN BOWEL CONTROL? NO . GENITOURINARY: ANY NEW CHANGE IN BLADDER CONTROL? NO . IS THERE A CHANCE YOU COULD BE ? NO . HEMATOLOGY/LYMPH: DO YOU TAKE ANY BLOOD THINNERS? (FOR EXAMPLE- COUMADIN, PLAVIX, AGGRENOX, PLATEL, PRADAXA, OR XARELTO) NO . WHEN WAS YOUR LAST DOSE? DATE: TIME: . NEUROLOGY: HAVE YOU FALLEN IN THE PAST 6 MONTHS? NO . ANY NEW EXTREMITY NUMBNESS OR WEAKNESS? NO . CARDIOLOGY: DO YOU HAVE A PACEMAKER OR DEFIBRILLATOR? NO . RESPIRATORY: HAVE YOU BEEN SICK IN THE PAST WEEK? NO . FEVER NO . FLU LIKE SYMPTOMS? NO . COUGH NO . INTEGUMENTARY: DO YOU HAVE ANY RASHES OR OPEN SORES? NO . ALLERGIC/IMMUNO: ARE YOU ALLERGIC TO SHELLFISH OR IV DYE? NO . ANY NEW ALLERGIES? NO . PSYCHIATRIC: DO YOU HAVE THOUGHTS OF HURTING YOURSELF OR SOMEONE ELSE? NO . ARE YOU ABUSED, NEGLECTED, OR IN AN UNSAFE ENVIRONMENT? NO . ENDOCRINOLOGY: ARE YOU DIABETIC? NO . OTHER: DO YOU NEED ANY PRESCRIPTIONS? NO . IF YES, PLEASE LIST: ____ . ANY NEW PROBLEMS WITH YOUR MEDICATIONS? NO . WHEN DID YOU LAST EAT? ____ . WHEN DID YOU LAST DRINK? ____ . WHAT DID YOU LAST DRINK? ____ . NAME OF PERSON DRIVING YOU HOME? ____ . DO YOU HAVE ANY OTHER QUESTIONS OR CONCERNS NO . VITAL SIGNS WT 263 LBS, HT 74 IN, BMI 33.76 INDEX, BP 152/90 MM HG, HR 84 /MIN, RR 18 /MIN, TEMP 97.4 F, OXYGEN SAT % 95%, NA INITIALS AW 1554, REVIEWED BY: INO. EXAMINATION GENERAL EXAMINATION: PATIENT IS ALERT O X 3 AND COOPERATIVE. LUNGS CLEAR, TO AUSCULTATION. HEART: NO MURMURS OR GALLOPS; FACIAL CRANIAL NERVES ARE GROSSLY NORMAL. GOOD SYMMETRY OF FACIAL MUSCLE MOVEMENT. NORMAL VISUAL CHO. TENDERNESS IN THE LOW BACK AREA OVER THE SACROILIAC JOINT. LEFT LEG IS WEAKER AT EXTENSION AND FLEXION. MRI OF THE LUMBAR SPINE DONE ON 09/10/2016 SHOWS FACET ARTHROPATHY CHANGES. ASSESSMENTS SACROILIITIS, NOT ELSEWHERE CLASSIFIED - M46.1 (PRIMARY) LUMBAR POST-LAMINECTOMY SYNDROME - M96.1 TREATMENT SACROILIITIS, NOT ELSEWHERE CLASSIFIED CLINICAL NOTES: WE DISCUSSED SEVERAL ISSUES WITH MR. HUDSON'S PAIN MANAGEMENT CASE. DUE TO THE SACROILIITIS, I WOULD LIKE TO MOVE FORWARD WITH A SACROILIAC JOINT INJECTION AT THIS TIME. WE DISCUSSED THE BENEFITS, RISKS, AND ALTERNATIVES OF THE INJECTION AND THE PATIENT WOULD LIKE TO PROCEED. THE PATIENT WOULD LIKE TO MOVE FORWARD WITH IV SEDATION DUE TO ANXIETY ASSOCIATED WITH THE PROCEDURE. THE PATIENT WILL FOLLOW UP 3 WEEKS AFTER THE INJECTION. INSTRUCTIONS WERE GIVEN, QUESTIONS WERE ANSWERED, PATIENT REPORTS UNDERSTANDING AND AGREES WITH THE PLAN. I, JESSA ANNE, DOCUMENTED THE ABOVE INFORMATION ACTING A SCRIBE FOR DR. MCKEON. I HAVE REVIEWED THE ABOVE DOCUMENT, WRITTEN BY JESSA VILLALPANDOIBJason AND I VERIFY THAT IT IS ACCURATE. DIAGNOSTIC IMAGING [facility] FLUORO GUIDANCE (PAIN)[id number] PROCEDURE CODES FA211 ESTABILISHED PATIENT [facility] FACILITY CHARGE G8427 CURRENT MEDS W/DOSAGES DOCUMENTED G8730 PAIN ASSESS POS TOOL F/U PLAN DOC DISPOSITION & COMMUNICATION FOLLOW UP 3 WEEKS ELECTRONICALLY SIGNED BY RADAMES MCKEON MD, MD ON 11/28/2018 AT 02:50 PM EST DISCLAIMER : THIS IS A VISIT SUMMARY EXTRACTED FROM THE [employer] CHART. IT IS NOT A COPY OF THE [employer] PROGRESS NOTE. SHAYY
== END ==
LOC: M PAIN 15:45
PROVIDERS: ATTEND Anesthesiology
DX: M46.1 Sacroiliitis, not elsewhere classified (principal); M96.1 Postlaminectomy syndrome, not elsewhere classified; R56.9 Unspecified convulsions; N18.3 Chronic kidney disease, stage 3 (moderate); I12.9 Hypertensive chronic kidney disease with stage 1 through stage 4 chronic kidney disease, or unspecified chronic kidney disease; G43.909 Migraine, unspecified, not intractable, without status migrainosus; Z79.891 Long term (current) use of opiate analgesic; Z79.899 Other long term (current) drug therapy; Z88.6 Allergy status to analgesic agent; Z86.79 Personal history of other diseases of the circulatory system; Z79.890 Hormone replacement therapy

== ENCOUNTER → 2018-11-23 | Outpatient (CLI) | payer OTHER ==
[~2018-11-23] MED LIST changes: +BUPIVACAINE HCL 0.25% 30 ML VIAL As Ordered ONE; +ISOVUE-M 300 61% 15ML VIAL (Q9967) As Ordered ONE; +LIDOCAINE 1% SDV INJ 30 ML VIAL As Ordered ONE; +MIDAZOLAM INJ 2 MG/2 ML VIAL (J2250) As Ordered ONE; +TRIAMCINOLONE ACETONIDE SUSP 40 MG/ML VIAL (J3301) As Ordered ONE; +fentaNYL 100 MCG/2 ML INJECTION (J3010) As Ordered ONE
--- NOTE | 2018-11-23 15:57 | REP ---
SI joint series: Six views, bilateral study. History: Bilateral SI joint injection for pain. 20 seconds of fluoroscopy time is reported. Findings: A sequence of six last image hold fluoroscopically obtained spot radiographs of the SI joints document various needle positions associated with SI joint injection procedure. Electronically Signed by Pedrito Genao MD 11/23/2018 06:16 P
--- NOTE | 2018-12-11 00:30 | ECWPNPC ---
PATIENT NAME: EVARISTO HUDSON : 1965 GENDER: MALE VISIT DATE: 11/23/2018 DISCHARGE DATE: 11/23/18 1420 VISIT LOCKED DATE TIME: PHYSICIAN: RADAMES MCKEON MD PHYSICIAN PAGER NO: [phone] RESOURCE: RADAMES MCKEON MD REASON FOR APPOINTMENT 1. BILAT. SIJ IV SED HISTORY OF PRESENT ILLNESS HISTORY OF PRESENT ILLNESS: PAIN THE PATIENT DESCRIBES THE PAIN... FALL RISK SCREENING: SCREENING :NO FALLS IN THE PAST YEAR CURRENT MEDICATIONS TAKING EXCEDRIN MIGRAINE 250-250-65 MG TABLET 2 TABLETS ORALLY ONCE DAILY NEEDED, NOTES: NONE LATELY TAKING OXYCODONE HCL 15 MG TABLET 1 TABLET ORALLY Q8H PRN MDD3, NOTES: 11/22/18 TAKING LISINOPRIL 20 MG TABLET 1 TABLET ORALLY ONCE A DAY, NOTES: 11/22/18 NOT-TAKING BLOOD PRESSURE MONITOR/L CUFF - MISCELLANEOUS DIRECTED I10 DAILY MEDICATION LIST REVIEWED AND RECONCILED WITH THE PATIENT PAST MEDICAL HISTORY MIGRAINES VENTRICULAR-SEPTAL DEFECT HX SEIZURES AFTER CRANIOTOMY FOR ARACHNOID CYST IN 2006 ANGIOECTASIA OF TERMINAL ILEUM, THERMAL THERAPY 01/17 [place], H/O GI BLEEDING WITH ACUTE BLOOD LOSS ANEMIA REQUIRING [facility]TP HOSPITALIZATIONS, AND TRANSFUSIONS, NONE SINCE THERMAL THERAPY CKD 3, BASELINES SCR 1.4 - 1.6 DYSLIPIDEMIA WITH LOW HDL 12/21 23 UNBILICAL HERNIA HTN ALLERGIES NSAID: ELEVATED CREATININE: CONTRAINDICATION SURGICAL HISTORY CRANIOTOMY WITH HX OF ARACHNOID CYST 2006 NO PERSONAL OR FHX OF SEVERE REACTION TO ANESTHESIA EGD/COLONOSCOPY/CAPSULE ENDOSCOPY FOR GI BLEED--NEG BX DR SALINAS; HAD RECTAL VESSEL CLIPPED 2008 EGD/COLONOSCOPY--NL DR SALINAS 09/2011 EGD/COLONOSCOPY--MILD ESOPHAGITIS, BX NEG FOR BARRETTS; DR PRISCILA MARES [place] 2011 FAMILY HISTORY FATHER: MOTHER: ALIVE SIBLINGS: DIAGNOSED WITH HYPERTENSION 3 SISTER(S) . 2 SON(S) , 3 DAUGHTER(S) - HEALTHY. SON WITH HOLE IN HIS HEART. SOCIAL HISTORY GENERAL: TOBACCO USE ARE YOU A:NONSMOKER ALCOHOL SCREENING DID YOU HAVE A DRINK CONTAINING ALCOHOL IN THE PAST YEAR?NO POINTS0 INTERPRETATIONNEGATIVE RECREATIONAL DRUG USE DRUG USE?NO CAFFEINE CAFFEINE USE?YES HOW OFTEN AND HOW MUCH? 1 CUP COFFEE/DAY SIKHISM [id number] NONE LANGUAGE LANGUAGES SPOKEN:IRISH LEARNING BARRIERS / SPECIAL NEEDS BARRIERS TO LEARNING?NO HEARING IMPAIRED?NO VISION IMPAIRED?NO COGNITIVELY IMPAIRED?NO READINESS TO LEARN?YES LEARNING PREFERENCES?NO LEARNING CAPABILITIES PRESENT?YES EMOTIONAL BARRIERS?NO DOMESTIC VIOLENCE DO YOU FEEL SAFE IN YOUR ENVIRONMENT?YES PAIN CLINIC PFS, CLERGY, PUBLIC HEALTH REFERRALS PFS REFERRAL NEEDED?NO CLERGY REFERRAL NEEDED?NO PUBLIC HEALTH REFERRAL NEEDED?NO WAS THE PROVIDER NOTIFIED OF ANY PERTINENT INFO?NO N/A HAS THE PATIENT BEEN EDUCATED REGARDING HIS/HER PLAN OF CARE?YES HAS THE PATIENT BEEN EDUCATED REGARDING PAIN, THE RISK FOR PAIN, THE IMPORTANCE OF EFFECTIVE PAIN MANAGEMENT, AND THE PAIN ASSESSMENT PROCESS?YES ADVANCE DIRECTIVE ADVANCE DIRECTIVE DISCUSSED WITH PATIENT:YES PT DECLINED INFORMATION OR ASSISTANCE ON HCP 07/20/18 0966 REVIEWED WITH PT. AD07/03/18 1140 REVIEWED WITH PT LAS11/02/18 0920 REVIEWED WITH PT LAS11/14/18 1625 LAS REVIEWED WITH PT. HOSPITALIZATION/MAJOR DIAGNOSTIC PROCEDURE LOWER GI BLEEDING, [facility] HOSPITALIZATIONS [phone] REVIEW OF SYSTEMS REVIEWED BY: PROVIDER: . CONSTITUTIONAL: ANY CHANGE IN YOUR MEDICAL CONDITION? NO . CHILLS NO . FEVER NO . INFECTION: DO YOU HAVE NEW INFECTIONS? NO . DO YOU HAVE HISTORY OF MRSA? NO . MUSCULOSKELETAL: ANY NEW PATTERNS OF PAIN OR NUMBNESS? NO . GASTROENTEROLOGY: ANY NEW CHANGE IN BOWEL CONTROL? NO . GENITOURINARY: ANY NEW CHANGE IN BLADDER CONTROL? NO . IS THERE A CHANCE YOU COULD BE ? NO . HEMATOLOGY/LYMPH: DO YOU TAKE ANY BLOOD THINNERS? (FOR EXAMPLE- COUMADIN, PLAVIX, AGGRENOX, PLATEL, PRADAXA, OR XARELTO) NO . WHEN WAS YOUR LAST DOSE? DATE: TIME: . NEUROLOGY: HAVE YOU FALLEN IN THE PAST 12 MONTHS? NO . ANY NEW EXTREMITY NUMBNESS OR WEAKNESS? NO . CARDIOLOGY: DO YOU HAVE A PACEMAKER OR DEFIBRILLATOR? NO . RESPIRATORY: HAVE YOU BEEN SICK IN THE PAST WEEK? NO . FEVER NO . FLU LIKE SYMPTOMS? NO . COUGH NO . INTEGUMENTARY: DO YOU HAVE ANY RASHES OR OPEN SORES? NO . ALLERGIC/IMMUNO: ARE YOU ALLERGIC TO IV DYE? NO . ANY NEW ALLERGIES? NO . PSYCHIATRIC: DO YOU HAVE THOUGHTS OF HURTING YOURSELF OR SOMEONE ELSE? NO . ARE YOU ABUSED, NEGLECTED, OR IN AN UNSAFE ENVIRONMENT? NO . ENDOCRINOLOGY: ARE YOU DIABETIC? NO . OTHER: DO YOU NEED ANY PRESCRIPTIONS? NO . IF YES, PLEASE LIST: ____ . ANY NEW PROBLEMS WITH YOUR MEDICATIONS? NO . WHEN DID YOU LAST EAT? 11/22/181899 . WHEN DID YOU LAST DRINK? 11/22/181899 . WHAT DID YOU LAST DRINK? WATER . NAME OF PERSON DRIVING YOU HOME? VICTORIA . DO YOU HAVE ANY OTHER QUESTIONS OR CONCERNS NO . VITAL SIGNS WT 267.2 LBS, HT 74 IN, BMI 34.30 INDEX, BP 140/85 MM HG, HR 67 /MIN, RR 18 /MIN, TEMP 97.4 F, OXYGEN SAT % 97%, NA INITIALS SC 11:04, REVIEWED BY: EM. ASSESSMENTS SACROILIITIS, NOT ELSEWHERE CLASSIFIED - M46.1 (PRIMARY) PROCEDURES PN SI PRE PROCEDURE DIAGNOSIS SACROILIITIS, SACROILIAC JOINT DYSFUNCTION POST PROCEDURE DIAGNOSIS SACROILIITIS, SACROILIAC JOINT DYSFUNCTION PROCEDURE BILATERAL SACROILIAC JOINT BLOCK SURGEON DR. RADAMES MCKEON ANIMAL CARE TAKER NONE ANESTHESIA LOCAL WITH IV SEDATION PRE PROCEDURE NOTE PATIENT WITH HISTORY OF CHRONIC LOW BACK PAIN. I EVALUATED THE PATIENT AND REVIEWED THE CHART. I WENT OVER THE RISKS, ALTERNATIVES, AND BENEFITS ASSOCIATED WITH THIS PROCEDURE. THE PATIENT WOULD LIKE TO PROCEED AND GAVE CONSENT TO PERFORM THE PROCEDURE. PATIENT WOULD LIKE TO MOVE FORWARD WITH IV SEDATION DUE TO DISCOMFORT, PAIN AND ANXIETY ASSOCIATED WITH THE PROCEDURE. THE PATIENT DENIES UNEXPLAINABLE WEIGHT LOSS, FEVER, CHILLS, OR NEW CHANGES IN URINARY OR BOWEL CONTROL DESCRIPTION OF PROCEDURE THE PATIENT WAS BROUGHT TO THE PROCEDURE ROOM AND PLACED IN THE PRONE POSITION. THE LUMBOSACRAL AREA WAS CLEANED WITH CHLORAPREP SOLUTION AND DRAPED ASEPTICALLY. THE PROCEDURE WAS DONE UNDER STERILE CONDITIONS. I CHECKED LATERALITY AND THE LEVEL WHERE THE PROCEDURE WAS GOING TO BE PERFORMED WITH THE PATIENT AND THE SUPPORTING STAFF AT THE MOMENT OF THE TIME OUT IN THE PROCEDURE ROOM. UNDER FLUOROSCOPIC GUIDANCE, TARGET POINT WAS SELECTED AT THE LOWER BORDER OF THE RIGHT AND LEFT SACROILIAC JOINT. TARGET POINT WAS SELECTED AFTER MEDIAL ROTATION AND TILT OF THE MAGNIFIER OF THE C-ARM. LIDOCAINE WAS USED TO NUMB THE SKIN AND SUBCUTANEOUS TISSUE BELOW IT. A SPINAL NEEDLE, 22-GAUGE, WAS ADVANCED UNDER FLUOROSCOPIC GUIDANCE AND FOLLOWING PATIENT FEEDBACK UNTIL THE TARGET AREA WAS TOUCHED. THE POSITION OF THE NEEDLE WAS VERIFIED WITH AP AND LATERAL VIEWS. AFTER PROPER POSITION OF THE NEEDLE WAS ACHIEVED, ISOVUE M DYE 30%, 0.25 ML, WAS INJECTED SHOWING SPREAD OF THE DYE. THEN, A SOLUTION OF 20 MG OF KENALOG WAS INJECTED IN RIGHT AND LEFT JOINT WITH 3 ML OF BUPIVACAINE 0.125%. PATIENT RECEIVED VERSED 2 MG AND FENTANYL 300 MCG IV DIVIDED DOSES. THERE WAS NO EVIDENCE OF BLOOD, PARESTHESIA OR CEREBROSPINAL FLUID DURING THE PROCEDURE. THE PATIENT WAS SENT TO THE RECOVERY ROOM. THE PATIENT WAS MOVING THE EXTREMITIES AND DOING WELL. THERE WAS NO COMPLICATION DURING THE PROCEDURE. FLUOROSCOPY TIME WAS 20 SECONDS. FACE TO FACE TIME WAS 13 MINUTES. POST PROCEDURE NOTE THE PATIENT WILL BE SEEN IN A FOLLOW UP IN THE NEXT FEW WEEKS. INSTRUCTIONS WERE GIVEN, QUESTIONS WERE ANSWERED, AND THE PATIENT EXPRESSED UNDERSTANDING AND AGREED WITH THE PLAN. I, JESSA ANNE, DOCUMENTED THE ABOVE INFORMATION ACTING A SCRIBE FOR DR. MCKEON. I HAVE REVIEWED THE ABOVE DOCUMENT, WRITTEN BY JESSA VILLALPANDOIBJason AND I VERIFY THAT IT IS ACCURATE. PROCEDURE CODES 6045F RADXPS IN END [id number] PXD [id number] INJECT SACROILIAC JOINT, MODIFIERS: 50 [id number] MOD SED SAME PHYS/QHP 5/>YRS DISPOSITION & COMMUNICATION FOLLOW UP 3 WEEKS ELECTRONICALLY SIGNED BY RADAMES MCKEON MD, MD ON 12/10/2018 AT 05:47 PM EST DISCLAIMER : THIS IS A VISIT SUMMARY EXTRACTED FROM THE [employer] CHART. IT IS NOT A COPY OF THE [employer] PROGRESS NOTE. MTDD
== END ==
LOC: M PAIN 10:45
PROVIDERS: ATTEND Anesthesiology
DX: G89.29 Other chronic pain (principal); M46.1 Sacroiliitis, not elsewhere classified; M53.88 Other specified dorsopathies, sacral and sacrococcygeal region; N18.3 Chronic kidney disease, stage 3 (moderate); I12.9 Hypertensive chronic kidney disease with stage 1 through stage 4 chronic kidney disease, or unspecified chronic kidney disease; G43.909 Migraine, unspecified, not intractable, without status migrainosus; Z79.891 Long term (current) use of opiate analgesic; Z79.899 Other long term (current) drug therapy; Z88.6 Allergy status to analgesic agent; Z86.79 Personal history of other diseases of the circulatory system; Z86.69 Personal history of other diseases of the nervous system and sense organs
CPT/HCPCS: 99152; G0260; J2250; J3010; J3301; Q9967

== ENCOUNTER → 2019-02-01 | Outpatient (REF) | payer OTHER ==
[~2019-02-01] MED LIST changes: -BUPIVACAINE HCL 0.25% 30 ML VIAL As Ordered ONE; -ISOVUE-M 300 61% 15ML VIAL (Q9967) As Ordered ONE; -LIDOCAINE 1% SDV INJ 30 ML VIAL As Ordered ONE; -MIDAZOLAM INJ 2 MG/2 ML VIAL (J2250) As Ordered ONE; -TRIAMCINOLONE ACETONIDE SUSP 40 MG/ML VIAL (J3301) As Ordered ONE; -fentaNYL 100 MCG/2 ML INJECTION (J3010) As Ordered ONE
[2019-02-01 12:58] LABS: HEMATOCRIT 50.3 % (42.0-52.0); HEMOGLOBIN 16.9 g/dl (13.5-17.5); MEAN CORPUSCULAR HEMOGLOBIN 31.4 pg (27.0-33.0); MEAN CORPUSCULAR HGB CONC 33.6 g/dl (32.0-36.5); MEAN CORPUSCULAR VOLUME 93.3 fl (80.0-96.0); PLATELET COUNT, AUTOMATED 264 10^3/uL (150-450); RED BLOOD COUNT 5.39 10^6/uL (4.30-6.10); WHITE BLOOD COUNT 6.6 10^3/uL (4.0-10.0)
[2019-02-01 13:10] LABS: ALT/SGPT 35 U/L (12-78); BILIRUBIN,TOTAL 0.4 MG/DL (0.2-1.0); BLOOD UREA NITROGEN 17 MG/DL (7-18); CALCIUM LEVEL 8.7 MG/DL (8.5-10.1); CARBON DIOXIDE LEVEL 32 MEQ/L (21-32); CHLORIDE LEVEL 103 MEQ/L (98-107); CHOLESTEROL LEVEL 198 MG/DL (<200); CHOLESTEROL RISK RATIO 11.647 (<5); CREATININE FOR GFR 1.21 MG/DL (0.70-1.30); FREE T4 0.88 NG/DL (0.76-1.46); GLOMERULAR FILTRATION RATE > 60.0 (>56); GLUCOSE, FASTING 92 MG/DL (70-100); HDL CHOLESTEROL 17 MG/DL (>40); NON-HDL-C 181 MG/DL; POTASSIUM SERUM 4.6 MEQ/L (3.5-5.1); SODIUM LEVEL 140 MEQ/L (136-145); TOTAL PROTEIN 6.7 GM/DL (6.4-8.2); TRIGLYCERIDES LEVEL 903 MG/DL (<150)
[2019-02-01 13:11] LABS: VITAMIN B12 LEVEL 788 PG/ML
[2019-02-01 13:12] LABS: FOLATE 15.1 NG/ML
== END ==
LOC: M SFHCADAM 10:47
PROVIDERS: ATTEND Physician Assistant
DX: N18.3 Chronic kidney disease, stage 3 (moderate) (principal); G43.909 Migraine, unspecified, not intractable, without status migrainosus; I99.8 Other disorder of circulatory system; E78.5 Hyperlipidemia, unspecified

== ENCOUNTER → 2019-03-13 | Outpatient (CLI) | payer OTHER ==
[~2019-03-13] MED LIST changes: -VICO5TAB16 PO; +VICO5TAB17 PO
--- NOTE | 2019-03-14 00:31 | ECGEPIP ---
Stationary ECG Study [facility] Test Date: 2019-03-13 Pat Name: EVARISTO HUDSON Department: Room: - Gender: M Design Inserter: NEENA : 1965 Requested By: Sabina Padilla Order Number: [id number] Reading MD: Sincere Liang Measurements Intervals [place] Rate: 68 P: 19 [place]: 166 QRS: -7 QRSD: 122 T: 18 QT: 381 QTc: 408 Interpretive Statements SINUS RHYTHM POSSIBLE LEFT ATRIAL ENLARGEMENT POSSIBLE PRIOR INFERIOR WALL INFARCT RIGHT BUNDLE BRANCH BLOCK COMPARED TO THE LAST 2 TRACINGS, HEART RATE IS NOW SLOWER OTHERWISE NO SIGNIFICANT CHANGES Electronically Signed On 03-14-2019 0:31:34 EDT by Sincere Liang
== END ==
LOC: M EKG 14:13
PROVIDERS: ATTEND Orthopaedic Surgery
DX: Z01.810 Encounter for preprocedural cardiovascular examination (principal); S83.241A Other tear of medial meniscus, current injury, right knee, initial encounter; X58.XXXA Exposure to other specified factors, initial encounter; Y92.89 Other specified places as the place of occurrence of the external cause

== ENCOUNTER → 2019-06-07 | Outpatient (CLI) | payer OTHER ==
--- NOTE | 2019-06-08 00:05 | ECWPNPC ---
PATIENT NAME: EVARISTO HUDSON : 1965 GENDER: MALE VISIT DATE: 06/07/2019 DISCHARGE DATE: 06/07/19 1015 VISIT LOCKED DATE TIME: PHYSICIAN: KIANNA DURON PHYSICIAN PAGER NO: [phone] RESOURCE: KIANNA DURON REASON FOR APPOINTMENT 1. POST PROC HISTORY OF PRESENT ILLNESS HISTORY OF PRESENT ILLNESS: HERE FOR F/U OF CHRONIC LBP.PAIN HAS ESCALATED OVER THE PAST3 MONTHS.REPORTING NEW ONSET OF RIGHT LEG AND FOOT NUMBNESS.RATING PAIN VAS 6/10.HAS RESPONDED WELL TO SIJ IN PAST. PAIN THE PATIENT DESCRIBES THE PAIN... FALL RISK SCREENING: SCREENING :NO FALLS REPORTED IN THE LAST YEAR CURRENT MEDICATIONS TAKING EXCEDRIN MIGRAINE 250-250-65 MG TABLET 2 TABLETS ORALLY ONCE DAILY NEEDED TAKING LISINOPRIL 20 MG TABLET 1 TABLET ORALLY ONCE A DAY TAKING ALEVE 220 MG CAPSULE 1 CAPSULE WITH FOOD OR MILK NEEDED ORALLY EVERY 12 HRS TAKING TYLENOL 325 MG TABLET 2 TABLET NEEDED ORALLY EVERY 4 HRS PAST MEDICAL HISTORY MIGRAINES VENTRICULAR-SEPTAL DEFECT HX SEIZURES AFTER CRANIOTOMY FOR ARACHNOID CYST IN 2006 ANGIOECTASIA OF TERMINAL ILEUM, THERMAL THERAPY 01/17 [place], H/O GI BLEEDING WITH ACUTE BLOOD LOSS ANEMIA REQUIRING MTP HOSPITALIZATIONS, AND TRANSFUSIONS, NONE SINCE THERMAL THERAPY CKD 3, BASELINES SCR 1.4 - 1.6 DYSLIPIDEMIA WITH LOW HDL 12/21 24 UNBILICAL HERNIA HTN LOW BACK PAIN ALLERGIES NSAID: ELEVATED CREATININE - CONTRAINDICATION SURGICAL HISTORY CRANIOTOMY WITH HX OF ARACHNOID CYST 2006 NO PERSONAL OR FHX OF SEVERE REACTION TO ANESTHESIA EGD/COLONOSCOPY/CAPSULE ENDOSCOPY FOR GI BLEED--NEG BX DR SALINAS; HAD RECTAL VESSEL CLIPPED 2008 EGD/COLONOSCOPY--NL DR SALINAS 09/2011 EGD/COLONOSCOPY--MILD ESOPHAGITIS, BX NEG FOR BARRETTS; DR PRISCILA MARES [place] 2011 HERNIA REPAIR 11/24 RIGHT TORN MENISCUS SURGERY 03/2019 FAMILY HISTORY FATHER: MOTHER: ALIVE SIBLINGS: DIAGNOSED WITH HYPERTENSION 3 SISTER(S) . 2 SON(S) , 3 DAUGHTER(S) - HEALTHY. SON WITH HOLE IN HIS HEART. SOCIAL HISTORY GENERAL: TOBACCO USE ARE YOU A:NONSMOKER DIET: REGULAR. LANGUAGE LANGUAGES SPOKEN:MONGOLIAN DOMESTIC VIOLENCE DO YOU FEEL SAFE IN YOUR ENVIRONMENT?YES RECREATIONAL DRUG USE DRUG USE?NO LEARNING BARRIERS / SPECIAL NEEDS CHANGE FROM LAST VISIT?NO BARRIERS TO LEARNING?NO HEARING IMPAIRED?NO VISION IMPAIRED?NO COGNITIVELY IMPAIRED?NO READINESS TO LEARN?YES LEARNING PREFERENCES?NO LEARNING CAPABILITIES PRESENT?YES EMOTIONAL BARRIERS?NO SPECIAL DEVICES?NO EXTRUDER NEEDED?NO PAIN CLINIC PFS, CLERGY, PUBLIC HEALTH REFERRALS PFS REFERRAL NEEDED?NO CLERGY REFERRAL NEEDED?NO PUBLIC HEALTH REFERRAL NEEDED?NO WAS THE PROVIDER NOTIFIED OF ANY PERTINENT INFO?NO N/A HAS THE PATIENT BEEN EDUCATED REGARDING HIS/HER PLAN OF CARE?YES HAS THE PATIENT BEEN EDUCATED REGARDING PAIN, THE RISK FOR PAIN, THE IMPORTANCE OF EFFECTIVE PAIN MANAGEMENT, AND THE PAIN ASSESSMENT PROCESS?YES LATEX QUESTIONNAIRE LATEX ALLERGY : HAVE YOU EVER DEVELOPED ANY TYPE OF REACTION AFTER HANDLING LATEX PRODUCTS SUCH RUBBER GLOVES, CONDOMS, DIAPHRAGMS, BALLOONS, SOCKS, OR UNDERWEAR?NO LATEX ALLERGY : HAVE YOU EVER DEVELOPED ANY TYPE OF REACTION DURING OR AFTER DENTAL APPOINTMENT, VAGINAL/RECTAL EXAMINATION, SURGICAL PROCEDURE, OR ANY OTHER EXPOSURE?NO LATEX RISK : HAVE YOU EVER HAD ANY DIFFICULTY BREATHING OR HIVES AFTER EATING OR HANDLING ANY FRUITS, OR VEGETABLES; SUCH KIWI, BANANAS, STONE FRUITS, OR CHESTNUTSNO LATEX RISK : DO YOU HAVE A PREVIOUS PERSONAL HISTORY OF MORE THAN NINE SURGERIES, SPINA BIFIDA, OR REPEATED CATHERIZATIONS? NO LATEX RISK : ARE YOU FREQUENTLY EXPOSED TO LATEX PRODUCTS IN YOUR OCCUPATION?NO DATE ASKED : 02/01/2019 CAFFEINE CAFFEINE USE?YES HOW OFTEN AND HOW MUCH? 1 CUP COFFEE/DAY ADVANCE DIRECTIVE ADVANCE DIRECTIVE DISCUSSED WITH PATIENT:YES PT DECLINED INFORMATION OR ASSISTANCE ON HCP AT THIS TIME. YARSANISM [id number] NONE MARITAL STATUS: . ALCOHOL SCREENING DID YOU HAVE A DRINK CONTAINING ALCOHOL IN THE PAST YEAR?NO POINTS0 INTERPRETATIONNEGATIVE 07/20/18 0925 REVIEWED WITH PT. AD07/03/18 1140 REVIEWED WITH PT LAS11/02/18 0920 REVIEWED WITH PT LAS11/14/18 1625 LAS REVIEWED WITH PTREVIEWED WITH PATIENT 06/07/19 0950 JS. HOSPITALIZATION/MAJOR DIAGNOSTIC PROCEDURE LOWER GI BLEEDING, [facility] HOSPITALIZATIONS [id number] REVIEW OF SYSTEMS REVIEWED BY: PROVIDER: KIANNA MOE . CONSTITUTIONAL: ANY CHANGE IN YOUR MEDICAL CONDITION? NO . CHILLS NO . FEVER NO . INFECTION: DO YOU HAVE NEW INFECTIONS? NO . DO YOU HAVE HISTORY OF MRSA? NO . MUSCULOSKELETAL: ANY NEW PATTERNS OF PAIN OR NUMBNESS? YES, NEW NUMBNESS TO RIGHT FOOT, CONTINUED NUMBNESS TO LEFT FOOT . GASTROENTEROLOGY: ANY NEW CHANGE IN BOWEL CONTROL? NO . GENITOURINARY: ANY NEW CHANGE IN BLADDER CONTROL? NO . IS THERE A CHANCE YOU COULD BE ? NO . HEMATOLOGY/LYMPH: DO YOU TAKE ANY BLOOD THINNERS? (FOR EXAMPLE- COUMADIN, PLAVIX, AGGRENOX, PLATEL, PRADAXA, OR XARELTO) NO . WHEN WAS YOUR LAST DOSE? DATE: TIME: . NEUROLOGY: HAVE YOU FALLEN IN THE PAST 12 MONTHS? NO . ANY NEW EXTREMITY NUMBNESS OR WEAKNESS? YES, NEW RIGHT FOOT NUMBNESS, CONTINUED NUMBNESS TO LEFT FOOT . CARDIOLOGY: DO YOU HAVE A PACEMAKER OR DEFIBRILLATOR? NO . RESPIRATORY: HAVE YOU BEEN SICK IN THE PAST WEEK? NO . FEVER NO . FLU LIKE SYMPTOMS? NO . COUGH NO . INTEGUMENTARY: DO YOU HAVE ANY RASHES OR OPEN SORES? NO . ALLERGIC/IMMUNO: ARE YOU ALLERGIC TO IV DYE? NO . ANY NEW ALLERGIES? NO . PSYCHIATRIC: DO YOU HAVE THOUGHTS OF HURTING YOURSELF OR SOMEONE ELSE? NO . ARE YOU ABUSED, NEGLECTED, OR IN AN UNSAFE ENVIRONMENT? NO . ENDOCRINOLOGY: ARE YOU DIABETIC? NO . OTHER: DO YOU NEED ANY PRESCRIPTIONS? NO . IF YES, PLEASE LIST: ____ . ANY NEW PROBLEMS WITH YOUR MEDICATIONS? NO . WHEN DID YOU LAST EAT? ____ . WHEN DID YOU LAST DRINK? ____ . WHAT DID YOU LAST DRINK? ____ . NAME OF PERSON DRIVING YOU HOME? ____ . DO YOU HAVE ANY OTHER QUESTIONS OR CONCERNS NO . VITAL SIGNS WT 272.0 LBS, HT 74 IN, BMI 34.92 INDEX, BP 138/87 MM HG, HR 79 /MIN, RR 18 /MIN, TEMP 97.4 F, OXYGEN SAT % 97, SAFE IN ENV? (Y/N) YES, NA INITIALS MP 0938, REVIEWED BY: JS. EXAMINATION GENERAL EXAMINATION: GENERAL ALERT,NO DISTRESS . PSYCH AFFECT NORMAL . LUNGS: LUNG SOUNDS ARE CLEAR . HEART: HEART RATE REGULAR . MUSCULOSKELETAL: MST 5/5 BILAT. LOWER EXTREMITIES . LUMBAR SACRAL SPINE TENDERNESS BILAT. SIJ . DIAGNOSTIC TESTS REVIEWEDMRI L/S [id number] . ASSESSMENTS SACROILIAC PAIN - M53.3 (PRIMARY) TREATMENT SACROILIAC PAIN NOTES: BILAT. SIJ W IV SEDATION. PROCEDURE CODES [id number] ESTABILISHED PATIENT [facility] CHARGE DISPOSITION & COMMUNICATION FOLLOW UP PRE SEDATE DR Patel (REASON: BILAT. SIJ W IV SEDATION) ELECTRONICALLY SIGNED BY PAYAL JACOBO ON 06/07/2019 AT 10:18 AM EDT DISCLAIMER : THIS IS A VISIT SUMMARY EXTRACTED FROM THE [employer] CHART. IT IS NOT A COPY OF THE [employer] PROGRESS NOTE. SHAYY
== END ==
LOC: M PAIN 09:30
PROVIDERS: ATTEND Nurse Practitioner Family
DX: M53.3 Sacrococcygeal disorders, not elsewhere classified (principal); G43.909 Migraine, unspecified, not intractable, without status migrainosus; Q21.0 Ventricular septal defect; N18.3 Chronic kidney disease, stage 3 (moderate); E78.5 Hyperlipidemia, unspecified; K42.9 Umbilical hernia without obstruction or gangrene; I12.9 Hypertensive chronic kidney disease with stage 1 through stage 4 chronic kidney disease, or unspecified chronic kidney disease; M54.5 Low back pain; Z86.79 Personal history of other diseases of the circulatory system; Z87.19 Personal history of other diseases of the digestive system; Z88.6 Allergy status to analgesic agent; Z79.899 Other long term (current) drug therapy

== ENCOUNTER → 2019-07-13 | Outpatient (CLI) | payer OTHER ==
--- NOTE | 2019-07-27 01:22 | ECWPNPC ---
PATIENT NAME: EVARISTO HUDSON : 1965 GENDER: MALE VISIT DATE: 07/13/2019 DISCHARGE DATE: 07/13/19 0000 VISIT LOCKED DATE TIME: PHYSICIAN: RADAMES MCKEON MD PHYSICIAN PAGER NO: [phone] RESOURCE: RADAMES MCKEON MD REASON FOR APPOINTMENT 1. PRE-SEDATE HISTORY OF PRESENT ILLNESS HISTORY OF PRESENT ILLNESS: PAIN THE PATIENT DESCRIBES THE PAIN... 54 YEAR OLD MALE PATIENT WITH A HISTORY OF CHRONIC LOW BACK PAIN. THE PATIENT DESCRIBES THE PAIN SHARP, STABBING, SHOOTING, DAILY, AND CONTINUOUS WITH A PAIN SCORE OF 6-9/10 DEPENDING ON PHYSICAL ACTIVITY. THE PATIENT STATES HIS PAIN BEGINS IN HIS LOW BACK WITH PAIN AND NUMBNESS RADIATING DOWN MAINLY HIS LEFT LEG. THE PATIENT SAYS HE HAS BEEN SUFFERING FROM THIS PAIN FOR MANY YEARS. THE PATIENT SAYS THE SACROILIAC JOINT BLOCKS HE'S RECEIVED IN THE PAST HAS HELPED PROVIDE GOOD PAIN RELIEF FOR HIM AND HE WOULD LIKE ANOTHER ONE. PATIENT DENIES UNEXPLAINABLE WEIGHT LOSS, FEVER, CHILLS, NEW CHANGES ON HIS URINARY OR BOWEL CONTROL. FALL RISK SCREENING: SCREENING :NO FALLS REPORTED IN THE LAST YEAR CURRENT MEDICATIONS TAKING EXCEDRIN MIGRAINE 250-250-65 MG TABLET 2 TABLETS ORALLY ONCE DAILY NEEDED TAKING ALEVE 220 MG CAPSULE 1 CAPSULE WITH FOOD OR MILK NEEDED ORALLY EVERY 12 HRS TAKING TYLENOL 325 MG TABLET 2 TABLET NEEDED ORALLY EVERY 4 HRS TAKING LISINOPRIL 20 MG TABLET 1 TABLET ORALLY ONCE A DAY MEDICATION LIST REVIEWED AND RECONCILED WITH THE PATIENT PAST MEDICAL HISTORY MIGRAINES VENTRICULAR-SEPTAL DEFECT HX SEIZURES AFTER CRANIOTOMY FOR ARACHNOID CYST IN 2006 ANGIOECTASIA OF TERMINAL ILEUM, THERMAL THERAPY 01/17 [place], H/O GI BLEEDING WITH ACUTE BLOOD LOSS ANEMIA REQUIRING MTP HOSPITALIZATIONS, AND TRANSFUSIONS, NONE SINCE THERMAL THERAPY CKD 3, BASELINES SCR 1.4 - 1.6 DYSLIPIDEMIA WITH LOW HDL 12/21 23 UNBILICAL HERNIA HTN LOW BACK PAIN ALLERGIES NSAID: ELEVATED CREATININE - CONTRAINDICATION SURGICAL HISTORY CRANIOTOMY WITH HX OF ARACHNOID CYST 2006 NO PERSONAL OR FHX OF SEVERE REACTION TO ANESTHESIA EGD/COLONOSCOPY/CAPSULE ENDOSCOPY FOR GI BLEED--NEG BX DR SALINAS; HAD RECTAL VESSEL CLIPPED 2008 EGD/COLONOSCOPY--NL DR SALINAS 09/2011 EGD/COLONOSCOPY--MILD ESOPHAGITIS, BX NEG FOR BARRETTS; DR PRISCILA MARES [place] 2011 HERNIA REPAIR 11/24 RIGHT TORN MENISCUS SURGERY 03/2019 FAMILY HISTORY FATHER: MOTHER: ALIVE SIBLINGS: DIAGNOSED WITH HYPERTENSION 3 SISTER(S) . 2 SON(S) , 3 DAUGHTER(S) - HEALTHY. SON WITH HOLE IN HIS HEART. SOCIAL HISTORY GENERAL: TOBACCO USE ARE YOU A:NONSMOKER DIET: REGULAR. LANGUAGE LANGUAGES SPOKEN:CYMRO DOMESTIC VIOLENCE DO YOU FEEL SAFE IN YOUR ENVIRONMENT?YES RECREATIONAL DRUG USE DRUG USE?NO LEARNING BARRIERS / SPECIAL NEEDS CHANGE FROM LAST VISIT?NO BARRIERS TO LEARNING?NO HEARING IMPAIRED?NO VISION IMPAIRED?NO COGNITIVELY IMPAIRED?NO READINESS TO LEARN?YES LEARNING PREFERENCES?NO LEARNING CAPABILITIES PRESENT?YES EMOTIONAL BARRIERS?NO SPECIAL DEVICES?NO PERFUME AND TOILET WATER MAKER NEEDED?NO PAIN CLINIC PFS, CLERGY, PUBLIC HEALTH REFERRALS PFS REFERRAL NEEDED?NO CLERGY REFERRAL NEEDED?NO PUBLIC HEALTH REFERRAL NEEDED?NO WAS THE PROVIDER NOTIFIED OF ANY PERTINENT INFO?NO N/A HAS THE PATIENT BEEN EDUCATED REGARDING HIS/HER PLAN OF CARE?YES HAS THE PATIENT BEEN EDUCATED REGARDING PAIN, THE RISK FOR PAIN, THE IMPORTANCE OF EFFECTIVE PAIN MANAGEMENT, AND THE PAIN ASSESSMENT PROCESS?YES LATEX QUESTIONNAIRE LATEX ALLERGY : HAVE YOU EVER DEVELOPED ANY TYPE OF REACTION AFTER HANDLING LATEX PRODUCTS SUCH RUBBER GLOVES, CONDOMS, DIAPHRAGMS, BALLOONS, SOCKS, OR UNDERWEAR?NO LATEX ALLERGY : HAVE YOU EVER DEVELOPED ANY TYPE OF REACTION DURING OR AFTER DENTAL APPOINTMENT, VAGINAL/RECTAL EXAMINATION, SURGICAL PROCEDURE, OR ANY OTHER EXPOSURE?NO DATE ASKED : 02/01/2019 LATEX RISK : HAVE YOU EVER HAD ANY DIFFICULTY BREATHING OR HIVES AFTER EATING OR HANDLING ANY FRUITS, OR VEGETABLES; SUCH KIWI, BANANAS, STONE FRUITS, OR CHESTNUTSNO LATEX RISK : DO YOU HAVE A PREVIOUS PERSONAL HISTORY OF MORE THAN NINE SURGERIES, SPINA BIFIDA, OR REPEATED CATHERIZATIONS? NO LATEX RISK : ARE YOU FREQUENTLY EXPOSED TO LATEX PRODUCTS IN YOUR OCCUPATION?NO CAFFEINE CAFFEINE USE?YES HOW OFTEN AND HOW MUCH? 1 CUP COFFEE/DAY ADVANCE DIRECTIVE ADVANCE DIRECTIVE DISCUSSED WITH PATIENT:YES PT DECLINED INFORMATION OR ASSISTANCE ON HCP AT THIS TIME. UATSDIN [id number] NONE MARITAL STATUS: . ALCOHOL SCREENING DID YOU HAVE A DRINK CONTAINING ALCOHOL IN THE PAST YEAR?NO POINTS0 INTERPRETATIONNEGATIVE 07/20/18 0968 REVIEWED WITH PT. AD07/03/18 1140 REVIEWED WITH PT LAS11/02/18 0920 REVIEWED WITH PT LAS11/14/18 1625 LAS REVIEWED WITH JASMINA WITH PATIENT 06/07/19 5509 JS. HOSPITALIZATION/MAJOR DIAGNOSTIC PROCEDURE LOWER GI BLEEDING, MTP HOSPITALIZATIONS [id number] REVIEW OF SYSTEMS REVIEWED BY: PROVIDER: RADAMES MCKEON MD . CONSTITUTIONAL: ANY CHANGE IN YOUR MEDICAL CONDITION? NO . CHILLS NO . FEVER NO . INFECTION: DO YOU HAVE NEW INFECTIONS? NO . DO YOU HAVE HISTORY OF MRSA? NO . MUSCULOSKELETAL: ANY NEW PATTERNS OF PAIN OR NUMBNESS? NO . GASTROENTEROLOGY: ANY NEW CHANGE IN BOWEL CONTROL? NO . GENITOURINARY: ANY NEW CHANGE IN BLADDER CONTROL? NO . IS THERE A CHANCE YOU COULD BE ? NO . HEMATOLOGY/LYMPH: DO YOU TAKE ANY BLOOD THINNERS? (FOR EXAMPLE- COUMADIN, PLAVIX, AGGRENOX, PLATEL, PRADAXA, OR XARELTO) NO . WHEN WAS YOUR LAST DOSE? DATE: TIME: . NEUROLOGY: HAVE YOU FALLEN IN THE PAST 12 MONTHS? NO . ANY NEW EXTREMITY NUMBNESS OR WEAKNESS? NO . CARDIOLOGY: DO YOU HAVE A PACEMAKER OR DEFIBRILLATOR? NO . RESPIRATORY: HAVE YOU BEEN SICK IN THE PAST WEEK? NO . FEVER NO . FLU LIKE SYMPTOMS? NO . COUGH NO . INTEGUMENTARY: DO YOU HAVE ANY RASHES OR OPEN SORES? NO . ALLERGIC/IMMUNO: ARE YOU ALLERGIC TO IV DYE? NO . ANY NEW ALLERGIES? NO . PSYCHIATRIC: DO YOU HAVE THOUGHTS OF HURTING YOURSELF OR SOMEONE ELSE? NO . ARE YOU ABUSED, NEGLECTED, OR IN AN UNSAFE ENVIRONMENT? NO . ENDOCRINOLOGY: ARE YOU DIABETIC? NO . OTHER: DO YOU NEED ANY PRESCRIPTIONS? NO . IF YES, PLEASE LIST: ____ . ANY NEW PROBLEMS WITH YOUR MEDICATIONS? NO . WHEN DID YOU LAST EAT? ____ . WHEN DID YOU LAST DRINK? ____ . WHAT DID YOU LAST DRINK? ____ . NAME OF PERSON DRIVING YOU HOME? ____ . DO YOU HAVE ANY OTHER QUESTIONS OR CONCERNS NO . VITAL SIGNS WT 271.8 LBS, HT 74 IN, BMI 34.89 INDEX, BP 152/85 MM HG, HR 86 /MIN, RR 18 /MIN, TEMP 96.7 F, OXYGEN SAT % 96%, SAFE IN ENV? (Y/N) YES, NA INITIALS SC 14:40, REVIEWED BY: KG. EXAMINATION GENERAL EXAMINATION: PATIENT IS ALERT O X 3 AND COOPERATIVE. LUNGS CLEAR, TO AUSCULTATION. HEART: NO MURMURS OR GALLOPS; FACIAL CRANIAL NERVES ARE GROSSLY NORMAL. GOOD SYMMETRY OF FACIAL MUSCLE MOVEMENT. NORMAL VISUAL CHO. LEFT LEG IS WEAKER AT EXTENSION AND FLEXION. TENDERNESS IN THE LOW BACK OVER THE SACROILIAC JOINT. FABERE TEST IS POSITIVE FOR BILATERAL SACROILIAC JOINT DYSFUNCTION. MRI OF THE LUMBAR SPINE DONE ON 09/10/2016 SHOWS CENTRAL CANAL STENOSIS AT MULTIPLE LEVELS. 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 HUDSON'S PAIN MANAGEMENT CASE. DUE TO THE SACROILIAC JOINT DYSFUNCTION, I WOULD LIKE TO MOVE FORWARD WITH A SACROILIAC JOINT BLOCK AT THIS TIME. THE PATIENT WOULD LIKE TO MOVE FORWARD WITH IV SEDATION DUE TO DISCOMFORT, PAIN, AND ANXIETY ASSOCIATED WITH THE PROCEDURE. WE DISCUSSED THE BENEFITS, RISKS, AND ALTERNATIVES OF THE INJECTION AND THE PATIENT WOULD LIKE TO PROCEED. THE PATIENT WILL FOLLOW UP IN SEVERAL WEEKS AFTER THE INJECTION. INSTRUCTIONS WERE GIVEN, QUESTIONS WERE ANSWERED, PATIENT REPORTS UNDERSTANDING AND AGREES WITH THE PLAN. I, RACHELE DILLARD, DOCUMENTED THE ABOVE INFORMATION ACTING A SCRIBE FOR DR. MCKEON. I HAVE REVIEWED THE ABOVE DOCUMENT, WRITTEN BY RACHELE VILLALPANDOIBJason AND I VERIFY THAT IT IS ACCURATE. . PROCEDURE CODES FA211 ESTABILISHED PATIENT [facility]AC[facility] CHARGE G8427 CURRENT MEDS W/DOSAGES DOCUMENTED G8730 PAIN ASSESS POS TOOL F/U PLAN DOC DISPOSITION & COMMUNICATION FOLLOW UP 3 WEEKS ELECTRONICALLY SIGNED BY RADAMES MCKEON MD, MD ON 07/26/2019 AT 02:12 PM EDT DISCLAIMER : THIS IS A VISIT SUMMARY EXTRACTED FROM THE [employer] CHART. IT IS NOT A COPY OF THE [employer] PROGRESS NOTE. YURYD
== END ==
LOC: M PAIN 14:30
PROVIDERS: ATTEND Anesthesiology
DX: M46.1 Sacroiliitis, not elsewhere classified (principal); M53.3 Sacrococcygeal disorders, not elsewhere classified; M96.1 Postlaminectomy syndrome, not elsewhere classified; G43.909 Migraine, unspecified, not intractable, without status migrainosus; N18.3 Chronic kidney disease, stage 3 (moderate); K42.9 Umbilical hernia without obstruction or gangrene; E78.5 Hyperlipidemia, unspecified; I12.9 Hypertensive chronic kidney disease with stage 1 through stage 4 chronic kidney disease, or unspecified chronic kidney disease; Z79.1 Long term (current) use of non-steroidal anti-inflammatories (NSAID); Z79.899 Other long term (current) drug therapy; Z88.6 Allergy status to analgesic agent

== ENCOUNTER → 2019-08-09 | Outpatient (CLI) | payer OTHER ==
[~2019-08-09] MED LIST changes: +BUPIVACAINE HCL 0.25% 30 ML VIAL As Ordered ONE; +ISOVUE-M 300 61% 15ML VIAL (Q9967) As Ordered ONE; +LIDOCAINE 1% SDV INJ 30 ML VIAL As Ordered ONE; +MIDAZOLAM INJ 2 MG/2 ML VIAL (J2250) As Ordered ONE; +TRIAMCINOLONE ACETONIDE SUSP 40 MG/ML VIAL (J3301) As Ordered ONE; +fentaNYL 100 MCG/2 ML INJECTION (J3010) As Ordered ONE
--- NOTE | 2019-08-09 14:55 | REP ---
SI joint series: Three views. Three: Bilateral SI joint injection for pain. 24 seconds of fluoroscopy time is reported. Findings: A sequence of three last image hold fluoroscopically obtained spot radiographs of the SI joints document various needle positions. Electronically Signed by Pedrito Genao MD 08/09/2019 02:46 P
== END ==
LOC: M PAIN 13:00
PROVIDERS: ATTEND Anesthesiology
DX: M46.1 Sacroiliitis, not elsewhere classified (principal); Z79.899 Other long term (current) drug therapy; Z88.8 Allergy status to other drugs, medicaments and biological substances
CPT/HCPCS: 99152; G0260; J2250; J3010; J3301; Q9967

== ENCOUNTER → 2019-08-28 | Outpatient (REF) | payer OTHER ==
[~2019-08-28] MED LIST changes: -BUPIVACAINE HCL 0.25% 30 ML VIAL As Ordered ONE; -ISOVUE-M 300 61% 15ML VIAL (Q9967) As Ordered ONE; -LIDOCAINE 1% SDV INJ 30 ML VIAL As Ordered ONE; -MIDAZOLAM INJ 2 MG/2 ML VIAL (J2250) As Ordered ONE; -TRIAMCINOLONE ACETONIDE SUSP 40 MG/ML VIAL (J3301) As Ordered ONE; -fentaNYL 100 MCG/2 ML INJECTION (J3010) As Ordered ONE
[2019-08-28 16:38] LABS: INFLUENZA A AMPLIFICATION NEGATIVE (NEGATIVE); INFLUENZA B AMPLIFICATION NEGATIVE (NEGATIVE)
== END ==
LOC: M LAB REF 15:19
PROVIDERS: ATTEND Physician Assistant
DX: J11.1 Influenza due to unidentified influenza virus with other respiratory manifestations (principal)

== ENCOUNTER → 2019-08-30 | Outpatient (CLI) | payer OTHER ==
--- NOTE | 2019-09-04 01:33 | ECWPNPC ---
PATIENT NAME: EVARISTO HUDSON : 1965 GENDER: MALE VISIT DATE: 08/30/2019 DISCHARGE DATE: 08/30/19 1359 VISIT LOCKED DATE TIME: PHYSICIAN: KIANNA DURON PHYSICIAN PAGER NO: [phone] RESOURCE: KIANNA DURON REASON FOR APPOINTMENT 1. POST PROC HISTORY OF PRESENT ILLNESS HISTORY OF PRESENT ILLNESS: HERE FOR POST PROCEDURE F/U.HAD BILATERAL SIJ ON 08/09/19.REPORTING MARKED REDUCTION IN PAIN FOR TWO WEEKS THEN PAIN ABRUPTLY RETURNED TO BASELINE.FINDING IT DIFFICULT TO WORK EVERYDAY AND ALSO TO PARTICIPATE IN ACTIVITIES DUE TO PAIN.PAIN IS LOCATED ACROSS LOW BACK WITH RADIATION INTO LEFT LEG.REPORTING NEUROPATHY TYPE PAIN IN BOTH FEET L>R.RATING PAIN VAS 7/10.DISCUSSED MEDICATION AND TREATMENT OPTIONS AT LENGTH.THIS TOOK OVER 20 MINUTES OF VISIT TIME.HE HAS TRIALED MANY MEDICATIONS OVER THE YEARS.GABAPENTIN CAUSED MENTAL CHANGES.HE WAS ON OXYCODONE 15MG 4 TAB DAILY FOR MANY YEARS WHICH HE STOPPED ON HIS OWN 1 YEAR AGO HE AND HIS WERE CONCERNED ABOUT BEING ON A NARCOTIC DAILY.TODAY HE SEEMS FRUSTRATED HE DOESNT REALY WANT TO GO BACK ON OXYCODONE BUT FEELS IT WAS MOST EFFECTIVE AT KEEPING FUNCTIONAL AND ABLE TO WORK. PAIN THE PATIENT DESCRIBES THE PAIN... FALL RISK SCREENING: SCREENING :NO FALLS REPORTED IN THE LAST YEAR CURRENT MEDICATIONS TAKING EXCEDRIN MIGRAINE 250-250-65 MG TABLET 2 TABLETS ORALLY ONCE DAILY NEEDED, NOTES: NOT LATELY TAKING ALEVE 220 MG CAPSULE 1 CAPSULE WITH FOOD OR MILK NEEDED ORALLY EVERY 12 HRS, NOTES: NOT LATELY TAKING TYLENOL 325 MG TABLET 2 TABLET NEEDED ORALLY EVERY 4 HRS, NOTES: NOT LATELY TAKING LISINOPRIL 20 MG TABLET 1 TABLET ORALLY ONCE A DAY, NOTES: [id number] MEDICATION LIST REVIEWED AND RECONCILED WITH THE PATIENT PAST MEDICAL HISTORY MIGRAINES VENTRICULAR-SEPTAL DEFECT HX SEIZURES AFTER CRANIOTOMY FOR ARACHNOID CYST IN 2006 ANGIOECTASIA OF TERMINAL ILEUM, THERMAL THERAPY 01/17 [place], H/O GI BLEEDING WITH ACUTE BLOOD LOSS ANEMIA REQUIRING MTP HOSPITALIZATIONS, AND TRANSFUSIONS, NONE SINCE THERMAL THERAPY CKD 3, BASELINES SCR 1.4 - 1.6 DYSLIPIDEMIA WITH LOW HDL 12/21 23 UNBILICAL HERNIA HTN LOW BACK PAIN ALLERGIES NSAID: ELEVATED CREATININE - CONTRAINDICATION SURGICAL HISTORY CRANIOTOMY WITH HX OF ARACHNOID CYST 2006 NO PERSONAL OR FHX OF SEVERE REACTION TO ANESTHESIA EGD/COLONOSCOPY/CAPSULE ENDOSCOPY FOR GI BLEED--NEG BX DR SALINAS; HAD RECTAL VESSEL CLIPPED 2008 EGD/COLONOSCOPY--NL DR SALINAS 09/2011 EGD/COLONOSCOPY--MILD ESOPHAGITIS, BX NEG FOR BARRETTS; DR PRISCILA MARES [place] 2011 HERNIA REPAIR 11/24 RIGHT TORN MENISCUS SURGERY 03/2019 FAMILY HISTORY FATHER: MOTHER: ALIVE SIBLINGS: DIAGNOSED WITH HYPERTENSION 3 SISTER(S) . 2 SON(S) , 3 DAUGHTER(S) - HEALTHY. SON WITH HOLE IN HIS HEART. SOCIAL HISTORY GENERAL: TOBACCO USE ARE YOU A:NONSMOKER DIET: REGULAR. LANGUAGE LANGUAGES SPOKEN:BRAZILIAN DOMESTIC VIOLENCE DO YOU FEEL SAFE IN YOUR ENVIRONMENT?YES RECREATIONAL DRUG USE DRUG USE?NO LEARNING BARRIERS / SPECIAL NEEDS CHANGE FROM LAST VISIT?NO BARRIERS TO LEARNING?NO HEARING IMPAIRED?NO VISION IMPAIRED?NO COGNITIVELY IMPAIRED?NO READINESS TO LEARN?YES LEARNING PREFERENCES?NO LEARNING CAPABILITIES PRESENT?YES EMOTIONAL BARRIERS?NO SPECIAL DEVICES?NO PUBLIC RELATIONS ACCOUNT SUPERVISOR NEEDED?NO PAIN CLINIC PFS, CLERGY, PUBLIC HEALTH REFERRALS PFS REFERRAL NEEDED?NO CLERGY REFERRAL NEEDED?NO PUBLIC HEALTH REFERRAL NEEDED?NO WAS THE PROVIDER NOTIFIED OF ANY PERTINENT INFO?YES N/A HAS THE PATIENT BEEN EDUCATED REGARDING HIS/HER PLAN OF CARE?YES HAS THE PATIENT BEEN EDUCATED REGARDING PAIN, THE RISK FOR PAIN, THE IMPORTANCE OF EFFECTIVE PAIN MANAGEMENT, AND THE PAIN ASSESSMENT PROCESS?YES LATEX QUESTIONNAIRE LATEX ALLERGY : HAVE YOU EVER DEVELOPED ANY TYPE OF REACTION AFTER HANDLING LATEX PRODUCTS SUCH RUBBER GLOVES, CONDOMS, DIAPHRAGMS, BALLOONS, SOCKS, OR UNDERWEAR?NO LATEX ALLERGY : HAVE YOU EVER DEVELOPED ANY TYPE OF REACTION DURING OR AFTER DENTAL APPOINTMENT, VAGINAL/RECTAL EXAMINATION, SURGICAL PROCEDURE, OR ANY OTHER EXPOSURE?NO DATE ASKED : 08/09/2019 LATEX RISK : HAVE YOU EVER HAD ANY DIFFICULTY BREATHING OR HIVES AFTER EATING OR HANDLING ANY FRUITS, OR VEGETABLES; SUCH KIWI, BANANAS, STONE FRUITS, OR CHESTNUTSNO LATEX RISK : DO YOU HAVE A PREVIOUS PERSONAL HISTORY OF MORE THAN NINE SURGERIES, SPINA BIFIDA, OR REPEATED CATHERIZATIONS? NO LATEX RISK : ARE YOU FREQUENTLY EXPOSED TO LATEX PRODUCTS IN YOUR OCCUPATION?NO CAFFEINE CAFFEINE USE?YES HOW OFTEN AND HOW MUCH? 1 CUP COFFEE/DAY ADVANCE DIRECTIVE ADVANCE DIRECTIVE DISCUSSED WITH PATIENT:YES PT DECLINED INFORMATION OR ASSISTANCE ON HCP AT THIS TIME. [facility] [id number] NONE MARITAL STATUS: . ALCOHOL SCREENING DID YOU HAVE A DRINK CONTAINING ALCOHOL IN THE PAST YEAR?NO POINTS0 INTERPRETATIONNEGATIVE 07/20/18 0925 REVIEWED WITH PT. AD07/03/18 1140 REVIEWED WITH PT LAS11/02/18 0920 REVIEWED WITH PT LAS11/14/18 1625 LAS REVIEWED WITH JASMINA WITH PATIENT 06/07/19 0950 JS. HOSPITALIZATION/MAJOR DIAGNOSTIC PROCEDURE LOWER GI BLEEDING, MTP HOSPITALIZATIONS [id number] REVIEW OF SYSTEMS REVIEWED BY: PROVIDER: KIANNA MOE . CONSTITUTIONAL: ANY CHANGE IN YOUR MEDICAL CONDITION? NO . CHILLS NO . FEVER NO . INFECTION: DO YOU HAVE NEW INFECTIONS? NO . DO YOU HAVE HISTORY OF MRSA? NO . MUSCULOSKELETAL: ANY NEW PATTERNS OF PAIN OR NUMBNESS? YES . GASTROENTEROLOGY: ANY NEW CHANGE IN BOWEL CONTROL? NO . GENITOURINARY: ANY NEW CHANGE IN BLADDER CONTROL? NO . IS THERE A CHANCE YOU COULD BE ? NO . HEMATOLOGY/LYMPH: DO YOU TAKE ANY BLOOD THINNERS? (FOR EXAMPLE- COUMADIN, PLAVIX, AGGRENOX, PLATEL, PRADAXA, OR XARELTO) NO . WHEN WAS YOUR LAST DOSE? DATE: TIME: . NEUROLOGY: HAVE YOU FALLEN IN THE PAST 12 MONTHS? NO . ANY NEW EXTREMITY NUMBNESS OR WEAKNESS? NO . CARDIOLOGY: DO YOU HAVE A PACEMAKER OR DEFIBRILLATOR? NO . RESPIRATORY: HAVE YOU BEEN SICK IN THE PAST WEEK? NO . FEVER NO . FLU LIKE SYMPTOMS? NO . COUGH NO . INTEGUMENTARY: DO YOU HAVE ANY RASHES OR OPEN SORES? NO . ALLERGIC/IMMUNO: ARE YOU ALLERGIC TO IV DYE? NO . ANY NEW ALLERGIES? NO . PSYCHIATRIC: DO YOU HAVE THOUGHTS OF HURTING YOURSELF OR SOMEONE ELSE? NO . ARE YOU ABUSED, NEGLECTED, OR IN AN UNSAFE ENVIRONMENT? NO . ENDOCRINOLOGY: ARE YOU DIABETIC? NO . OTHER: DO YOU NEED ANY PRESCRIPTIONS? NO . IF YES, PLEASE LIST: ____ . ANY NEW PROBLEMS WITH YOUR MEDICATIONS? NO . WHEN DID YOU LAST EAT? ____ . WHEN DID YOU LAST DRINK? ____ . WHAT DID YOU LAST DRINK? ____ . NAME OF PERSON DRIVING YOU HOME? ____ . DO YOU HAVE ANY OTHER QUESTIONS OR CONCERNS NO . VITAL SIGNS WT 270.6 LBS, HT 74 IN, BMI 34.74 INDEX, BP 151/89 MM HG, HR 73 /MIN, RR 18 /MIN, TEMP 97.1 F, OXYGEN SAT % 98%, SAFE IN ENV? (Y/N) YES, NA INITIALS AW 1301, REVIEWED BY: KG. EXAMINATION GENERAL EXAMINATION: GENERAL AWAKE,ALERT ,PLEASANT . PSYCH AFFECT NORMAL . LUNGS: LUNG CHO ARE CLEAR TO AUSCULTATION BILATERALLY. GOOD MOVEMENT OF AIR . HEART: S1, S2 IN A REGULAR RATE AND RHYTHM. NO SIGNIFICANT MURMURS, RUBS OR GALLOPS NOTED . LUMBAR SACRAL SPINEPALPATION:TENDER OVER BILAT. L4/5-L5/S1 LUMBAR FACETS WITH FACET LOADING. AGGREVATION IN PAIN WITH EXTENSION OF SPINE. DIAGNOSTIC TESTS REVIEWED MRI L/S SPINE-09/10/16. 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 SACROILIAC DYSFUNCTION - M53.3 CHRONIC LOW BACK PAIN, UNSPECIFIED BACK PAIN LATERALITY, WITH SCIATICA PRESENCE UNSPECIFIED - M54.5 SACROILIAC JOINT PAIN - M53.3 CHRONIC PRESCRIPTION OPIATE USE - Z79.891 ESSENTIAL (PRIMARY) HYPERTENSION - I10 SACROILIITIS, NOT ELSEWHERE CLASSIFIED - M46.1 LUMBOSACRAL SPONDYLOLYSIS - M43.07 TREATMENT POSTLAMINECTOMY SYNDROME, NOT ELSEWHERE CLASSIFIED START LYRICA CAPSULE, 100 MG, 1 CAPSULE, ORALLY, BID MDD2, 30 DAYS, 60, REFILLS 1 NOTES: BILAT L4/5-L5/S1 LFBDXDISCUSSED AT LENGTH TREATMENT OPTIONS.INFORMATION ON DCS WAS GIVEN TO CONSIDER SENIOR CARE GOAL.HE IS AGREEABLE TO TRY MEDICATIONS AND BE SEEN MONTHLY TO REEVALUATE AND MAKE ADJUSTMENTS, ISTOP REGISTRY REVIEWED AND DEMONSTRATES COMPLLIANCE. PROCEDURE CODES FA211 ESTABILISHED PATIENT [facility] CHARGE DISPOSITION & COMMUNICATION FOLLOW UP 4 WEEKS (REASON: BILAT L4/5-L5/S1 LFBDX) ELECTRONICALLY SIGNED BY PAYAL JACOBO ON 09/03/2019 AT 11:20 AM EDT DISCLAIMER : THIS IS A VISIT SUMMARY EXTRACTED FROM THE [employer] CHART. IT IS NOT A COPY OF THE [employer] PROGRESS NOTE. SHAYY
== END ==
LOC: M PAIN 13:00
PROVIDERS: ATTEND Nurse Practitioner Family
DX: M96.1 Postlaminectomy syndrome, not elsewhere classified (principal); K42.9 Umbilical hernia without obstruction or gangrene; E78.5 Hyperlipidemia, unspecified; I12.9 Hypertensive chronic kidney disease with stage 1 through stage 4 chronic kidney disease, or unspecified chronic kidney disease; N18.3 Chronic kidney disease, stage 3 (moderate); G43.909 Migraine, unspecified, not intractable, without status migrainosus; Q21.0 Ventricular septal defect; M53.3 Sacrococcygeal disorders, not elsewhere classified; M54.5 Low back pain; M46.1 Sacroiliitis, not elsewhere classified; M43.07 Spondylolysis, lumbosacral region; Z88.6 Allergy status to analgesic agent; Z79.899 Other long term (current) drug therapy

== ENCOUNTER → 2019-09-27 | Outpatient (CLI) | payer OTHER ==
[~2019-09-27] MED LIST changes: +BUPIVACAINE HCL 0.25% 30 ML VIAL As Ordered ONE; +ISOVUE-M 300 61% 15ML VIAL (Q9967) As Ordered ONE; +LIDOCAINE 1% SDV INJ 30 ML VIAL As Ordered ONE
--- NOTE | 2019-09-27 14:24 | REP ---
Four fluoroscopic images: 09/27/2019. Indication: Operative/procedural fluoroscopic guidance requested. Findings: Four spot fluoroscopy images were obtained for operative/procedural guidance. Please see operative/procedural report for details. Impression: Fluoroscopy provided for operative/procedural guidance. 38 seconds of fluoroscopy time utilized. Electronically Signed by Neptali Heller DO 09/27/2019 02:16 P
--- NOTE | 2019-10-17 03:41 | ECWPNPC ---
PATIENT NAME: EVARISTO HUDSON : 1965 GENDER: MALE VISIT DATE: 09/27/2019 DISCHARGE DATE: 09/27/19 1414 VISIT LOCKED DATE TIME: PHYSICIAN: RADAMES MCKEON MD PHYSICIAN PAGER NO: [phone] RESOURCE: RADAMES MCKEON MD REASON FOR APPOINTMENT 1. BILAT L4/5-L5/S1 LFBDX HISTORY OF PRESENT ILLNESS HISTORY OF PRESENT ILLNESS: PAIN THE PATIENT DESCRIBES THE PAIN... FALL RISK SCREENING: SCREENING :NO FALLS REPORTED IN THE LAST YEAR CURRENT MEDICATIONS TAKING EXCEDRIN MIGRAINE 250-250-65 MG TABLET 2 TABLETS ORALLY ONCE DAILY NEEDED, NOTES: NOT LATELY TAKING ALEVE 220 MG CAPSULE 1 CAPSULE WITH FOOD OR MILK NEEDED ORALLY EVERY 12 HRS, NOTES: NOT LATELY TAKING TYLENOL 325 MG TABLET 2 TABLET NEEDED ORALLY EVERY 4 HRS, NOTES: NOT LATELY TAKING LISINOPRIL 20 MG TABLET 1 TABLET ORALLY ONCE A DAY, NOTES: 09/26/2019 2100 NOT-TAKING LYRICA 100 MG CAPSULE 1 CAPSULE ORALLY BID MDD2 NOT-TAKING LYRICA 100 MG CAPSULE 1 CAPSULE ORALLY BID MDD2 MEDICATION LIST REVIEWED AND RECONCILED WITH THE PATIENT PAST MEDICAL HISTORY MIGRAINES VENTRICULAR-SEPTAL DEFECT HX SEIZURES AFTER CRANIOTOMY FOR ARACHNOID CYST IN 2006 ANGIOECTASIA OF TERMINAL ILEUM, THERMAL THERAPY 01/17 [place], H/O GI BLEEDING WITH ACUTE BLOOD LOSS ANEMIA REQUIRING MTP HOSPITALIZATIONS, AND TRANSFUSIONS, NONE SINCE THERMAL THERAPY CKD 3, BASELINES SCR 1.4 - 1.6 DYSLIPIDEMIA WITH LOW HDL 12/21 24 UNBILICAL HERNIA HTN LOW BACK PAIN ALLERGIES NSAID: ELEVATED CREATININE - CONTRAINDICATION SURGICAL HISTORY CRANIOTOMY WITH HX OF ARACHNOID CYST 2006 NO PERSONAL OR FHX OF SEVERE REACTION TO ANESTHESIA EGD/COLONOSCOPY/CAPSULE ENDOSCOPY FOR GI BLEED--NEG BX DR SALINAS; HAD RECTAL VESSEL CLIPPED 2008 EGD/COLONOSCOPY--NL DR SALINAS 09/2011 EGD/COLONOSCOPY--MILD ESOPHAGITIS, BX NEG FOR BARRETTS; DR PRISCILA MARES SYR 2011 HERNIA REPAIR 11/24 RIGHT TORN MENISCUS SURGERY 03/2019 FAMILY HISTORY FATHER: MOTHER: ALIVE SIBLINGS: DIAGNOSED WITH HYPERTENSION 3 SISTER(S) . 2 SON(S) , 3 DAUGHTER(S) - HEALTHY. SON WITH HOLE IN HIS HEART. SOCIAL HISTORY GENERAL: TOBACCO USE ARE YOU A:NONSMOKER DIET: REGULAR. LANGUAGE LANGUAGES SPOKEN:MACANESE DOMESTIC VIOLENCE DO YOU FEEL SAFE IN YOUR ENVIRONMENT?YES RECREATIONAL DRUG USE DRUG USE?NO LEARNING BARRIERS / SPECIAL NEEDS CHANGE FROM LAST VISIT?NO BARRIERS TO LEARNING?NO HEARING IMPAIRED?NO VISION IMPAIRED?NO COGNITIVELY IMPAIRED?NO READINESS TO LEARN?YES LEARNING PREFERENCES?NO LEARNING CAPABILITIES PRESENT?YES EMOTIONAL BARRIERS?NO SPECIAL DEVICES?NO CLIPPER MACHINE NEEDED?NO PAIN CLINIC PFS, CLERGY, PUBLIC HEALTH REFERRALS PFS REFERRAL NEEDED?NO CLERGY REFERRAL NEEDED?NO PUBLIC HEALTH REFERRAL NEEDED?NO WAS THE PROVIDER NOTIFIED OF ANY PERTINENT INFO?YES N/A HAS THE PATIENT BEEN EDUCATED REGARDING HIS/HER PLAN OF CARE?YES HAS THE PATIENT BEEN EDUCATED REGARDING PAIN, THE RISK FOR PAIN, THE IMPORTANCE OF EFFECTIVE PAIN MANAGEMENT, AND THE PAIN ASSESSMENT PROCESS?YES LATEX QUESTIONNAIRE LATEX ALLERGY : HAVE YOU EVER DEVELOPED ANY TYPE OF REACTION AFTER HANDLING LATEX PRODUCTS SUCH RUBBER GLOVES, CONDOMS, DIAPHRAGMS, BALLOONS, SOCKS, OR UNDERWEAR?NO LATEX ALLERGY : HAVE YOU EVER DEVELOPED ANY TYPE OF REACTION DURING OR AFTER DENTAL APPOINTMENT, VAGINAL/RECTAL EXAMINATION, SURGICAL PROCEDURE, OR ANY OTHER EXPOSURE?NO DATE ASKED : 08/09/2019 LATEX RISK : HAVE YOU EVER HAD ANY DIFFICULTY BREATHING OR HIVES AFTER EATING OR HANDLING ANY FRUITS, OR VEGETABLES; SUCH KIWI, BANANAS, STONE FRUITS, OR CHESTNUTSNO LATEX RISK : DO YOU HAVE A PREVIOUS PERSONAL HISTORY OF MORE THAN NINE SURGERIES, SPINA BIFIDA, OR REPEATED CATHERIZATIONS? NO LATEX RISK : ARE YOU FREQUENTLY EXPOSED TO LATEX PRODUCTS IN YOUR OCCUPATION?NO CAFFEINE CAFFEINE USE?YES HOW OFTEN AND HOW MUCH? 1 CUP COFFEE/DAY ADVANCE DIRECTIVE ADVANCE DIRECTIVE DISCUSSED WITH PATIENT:YES PT DECLINED INFORMATION OR ASSISTANCE ON HCP AT THIS TIME. CAODAISM [id number] NONE MARITAL STATUS: . ALCOHOL SCREENING DID YOU HAVE A DRINK CONTAINING ALCOHOL IN THE PAST YEAR?NO POINTS0 INTERPRETATIONNEGATIVE 07/20/18 0925 REVIEWED WITH PT. AD07/03/18 1140 REVIEWED WITH PT LAS11/02/18 0920 REVIEWED WITH PT LAS11/14/18 1625 LAS REVIEWED WITH PTREVIEWED WITH PATIENT 06/07/19 0950 JSREVIEWED WITH PATIENT 09/27/19 LAS. HOSPITALIZATION/MAJOR DIAGNOSTIC PROCEDURE LOWER GI BLEEDING, MTP HOSPITALIZATIONS [phone] REVIEW OF SYSTEMS REVIEWED BY: PROVIDER: . CONSTITUTIONAL: ANY CHANGE IN YOUR MEDICAL CONDITION? NO . CHILLS NO . FEVER NO . INFECTION: DO YOU HAVE NEW INFECTIONS? NO . DO YOU HAVE HISTORY OF MRSA? NO . MUSCULOSKELETAL: ANY NEW PATTERNS OF PAIN OR NUMBNESS? NO . GASTROENTEROLOGY: ANY NEW CHANGE IN BOWEL CONTROL? NO . GENITOURINARY: ANY NEW CHANGE IN BLADDER CONTROL? NO . IS THERE A CHANCE YOU COULD BE ? NO . HEMATOLOGY/LYMPH: DO YOU TAKE ANY BLOOD THINNERS? (FOR EXAMPLE- COUMADIN, PLAVIX, AGGRENOX, PLATEL, PRADAXA, OR XARELTO) NO . WHEN WAS YOUR LAST DOSE? DATE: TIME: . NEUROLOGY: HAVE YOU FALLEN IN THE PAST 12 MONTHS? NO . ANY NEW EXTREMITY NUMBNESS OR WEAKNESS? NO . CARDIOLOGY: DO YOU HAVE A PACEMAKER OR DEFIBRILLATOR? NO . RESPIRATORY: HAVE YOU BEEN SICK IN THE PAST WEEK? NO . FEVER NO . FLU LIKE SYMPTOMS? NO . COUGH NO . INTEGUMENTARY: DO YOU HAVE ANY RASHES OR OPEN SORES? NO . ALLERGIC/IMMUNO: ARE YOU ALLERGIC TO IV DYE? NO . ANY NEW ALLERGIES? NO . PSYCHIATRIC: DO YOU HAVE THOUGHTS OF HURTING YOURSELF OR SOMEONE ELSE? NO . ARE YOU ABUSED, NEGLECTED, OR IN AN UNSAFE ENVIRONMENT? NO . ENDOCRINOLOGY: ARE YOU DIABETIC? NO . OTHER: DO YOU NEED ANY PRESCRIPTIONS? NO . IF YES, PLEASE LIST: ____ . ANY NEW PROBLEMS WITH YOUR MEDICATIONS? NO . WHEN DID YOU LAST EAT? ____09/26/191929 . WHEN DID YOU LAST DRINK? ____09/26/192029 . WHAT DID YOU LAST DRINK? ____MILK . NAME OF PERSON DRIVING YOU HOME? ____WIFE . DO YOU HAVE ANY OTHER QUESTIONS OR CONCERNS NO . VITAL SIGNS WT 272.2 LBS, HT 74 IN, BMI 34.94 INDEX, BP 127/76 MM HG, HR 65 /MIN, RR 18 /MIN, TEMP 98.0 F, OXYGEN SAT % 95%, SAFE IN ENV? (Y/N) YES, NA INITIALS AW 1137, REVIEWED BY: LAS. 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 RADAMES MCKEON PERSONNEL DIRECTOR NONE ANESTHESIA LOCAL PRE PROCEDURE NOTE THE PATIENT WITH HISTORY OF CHRONIC LOW BACK PAIN. I EVALUATED THE PATIENT AND REVIEWED THE CHART. I WENT OVER THE RISKS, ALTERNATIVES, AND BENEFITS ASSOCIATED WITH THIS PROCEDURE. THE PATIENT WOULD LIKE TO PROCEED AND GAVE CONSENT TO PERFORM THE PROCEDURE. AGREED WITH THE PATIENT WE ARE DOING THIS PROCEDURE TO DETERMINE IF THE PATIENT IS A CANDIDATE FOR A RADIOFREQUENCY ABLATION OF THE FACETS JOINTS. THE PATIENT DENIES UNEXPLAINABLE WEIGHT LOSS, FEVER, CHILLS, OR NEW CHANGES IN URINARY OR BOWEL CONTROL DESCRIPTION OF PROCEDURE THE PATIENT WAS BROUGHT TO THE PROCEDURE ROOM AND PLACED IN THE PRONE POSITION. THE LUMBOSACRAL AREA WAS CLEANED WITH CHLORAPREP SOLUTION AND DRAPED ASEPTICALLY. THE PROCEDURE WAS DONE UNDER STERILE CONDITIONS. I CHECKED LATERALITY AND THE LEVEL WHERE THE PROCEDURE WAS GOING TO BE PERFORMED WITH THE PATIENT AND THE SUPPORTING STAFF AT THE MOMENT OF THE TIME OUT IN THE PROCEDURE ROOM. UNDER FLUOROSCOPIC GUIDANCE, TARGETS WERE SELECTED AT THE INTERSECTION OF THE BILATERAL TRANSVERSE PROCESS OF L4, L5 AND ALA OF S1 WITH ITS RESPECTIVE SUPERIOR ARTICULAR PROCESS. LIDOCAINE WAS USED TO NUMB THE SKIN AND THE SUBCUTANEOUS TISSUE BELOW IT. SPINAL NEEDLE, 22-GAUGE WAS ADVANCED UNDER FLUOROSCOPIC GUIDANCE AND FOLLOWING PATIENT FEEDBACK UNTIL THE TARGETS WERE REACHED. POSITION OF THE NEEDLES WAS VERIFIED WITH AP AND LATERAL VIEWS. AFTER PROPER POSITION OF THE NEEDLES WAS ACHIEVED, ISOVUE-M DYE 30% 0.1 ML WAS INJECTED AT EACH SITE SHOWING ADEQUATE SPREAD OF THE DYE. THEN A SOLUTION OF 0.4 ML OF BUPIVACAINE 0.25% WAS INJECTED AT EACH SITE. THERE WAS NO EVIDENCE OF BLOOD, PARESTHESIA OR CEREBROSPINAL FLUID DURING THE PROCEDURE. THE PATIENT WAS SENT TO THE RECOVERY ROOM. THE PATIENT WAS MOVING THE EXTREMITIES AND DOING WELL. THERE WAS NO COMPLICATION DURING THE PROCEDURE. FLUOROSCOPY TIME WAS 38 SECONDS POST PROCEDURE NOTE THE PATIENT WILL DOCUMENT HIS PAIN LEVEL AND RESPONSE TO THIS PROCEDURE EVERY 30 MINUTES. THE PATIENT WILL BE SEEN IN A FOLLOW UP IN THE NEXT FEW WEEKS. FURTHER DETERMINATION FOR HIS CASE WILL BE DONE AT THE NEXT VISIT. INSTRUCTIONS WERE GIVEN, QUESTIONS WERE ANSWERED, AND THE PATIENT EXPRESSED UNDERSTANDING AND AGREED WITH THE PLAN. I, RACHELE DILLARD, DOCUMENTED THE ABOVE INFORMATION ACTING A SCRIBE FOR DR. MCKEON. I HAVE REVIEWED THE ABOVE DOCUMENT, WRITTEN BY RACHELE DILLARD SCRIBJason AND I VERIFY THAT IT IS ACCURATE. PROCEDURE CODES 33841 INJ PARAVERT F JNT L/S 1 LEV, MODIFIERS: 50 [id number] INJ PARAVERT F JNT L/S 2 LEV, MODIFIERS: 50 [id number] RADXPS IN END [id number] PXD DISPOSITION & COMMUNICATION FOLLOW UP 3 WEEKS ELECTRONICALLY SIGNED BY RADAMES MCKEON MD, MD ON 10/16/2019 AT 04:48 PM EST DISCLAIMER : THIS IS A VISIT SUMMARY EXTRACTED FROM THE [employer] CHART. IT IS NOT A COPY OF THE [employer] PROGRESS NOTE. MTDD
== END ==
LOC: M PAIN 11:30
PROVIDERS: ATTEND Anesthesiology
DX: M47.816 Spondylosis without myelopathy or radiculopathy, lumbar region (principal); M96.1 Postlaminectomy syndrome, not elsewhere classified; M47.817 Spondylosis without myelopathy or radiculopathy, lumbosacral region; G43.909 Migraine, unspecified, not intractable, without status migrainosus; I10 Essential (primary) hypertension; Z88.6 Allergy status to analgesic agent; Z79.899 Other long term (current) drug therapy
CPT/HCPCS: 64493; 64494; Q9967

== ENCOUNTER → 2019-10-11 | Outpatient (CLI) | payer OTHER ==
[~2019-10-11] MED LIST changes: -BUPIVACAINE HCL 0.25% 30 ML VIAL As Ordered ONE; -ISOVUE-M 300 61% 15ML VIAL (Q9967) As Ordered ONE; -LIDOCAINE 1% SDV INJ 30 ML VIAL As Ordered ONE
--- NOTE | 2019-10-30 02:14 | ECWPNPC ---
PATIENT NAME: EVARISTO HUDSON : 1965 GENDER: MALE VISIT DATE: 10/11/2019 DISCHARGE DATE: 10/11/19 1500 VISIT LOCKED DATE TIME: PHYSICIAN: KIANNA DURON PHYSICIAN PAGER NO: [phone] RESOURCE: KIANNA DURON REASON FOR APPOINTMENT 1. POST PROCEDURE HISTORY OF PRESENT ILLNESS HISTORY OF PRESENT ILLNESS: BEING SEEN ON AN URGENT BASIS FOR INCREASE IN LBP POST LFB DX DONE ON 09/27/19.REPORTING EPISODES OF SEVERE PAIN AT THE LOWER THORACIC REGION SINCE INJECTION.HAS HAD TO MISS WORK DUE TO PAIN.DENIES LOCAL REDDNESS OR SWELLING AT INJECTION SITE.DENIES RECENT FEVER OR ILLNESS.RATING PAIN VAS 7-9/10VAS.HE HAS TALKED WITH AND WANTS TO TRY NARCOTIC PAIN MEDICATIONS AGAIN HE IS UNABLE TO TOLERATE HIS JOB AND FAMILY EVENTS DUE TO UNCONTROLLED PAIN.HAS TRIALED MULTIPLE DIFFERENT PAIN MEDICATIONS OVER THE YEARS.HISTORY OF POST LAMINECTOMY PAIN SYNDROME. PAIN THE PATIENT DESCRIBES THE PAIN... FALL RISK SCREENING: SCREENING :NO FALLS REPORTED IN THE LAST YEAR CURRENT MEDICATIONS TAKING EXCEDRIN MIGRAINE 250-250-65 MG TABLET 2 TABLETS ORALLY ONCE DAILY NEEDED TAKING ALEVE 220 MG CAPSULE 1 CAPSULE WITH FOOD OR MILK NEEDED ORALLY EVERY 12 HRS TAKING TYLENOL 325 MG TABLET 2 TABLET NEEDED ORALLY EVERY 4 HRS TAKING LISINOPRIL 20 MG TABLET 1 TABLET ORALLY ONCE A DAY NOT-TAKING LYRICA 100 MG CAPSULE 1 CAPSULE ORALLY BID MDD2 NOT-TAKING LYRICA 100 MG CAPSULE 1 CAPSULE ORALLY BID MDD2 MEDICATION LIST REVIEWED AND RECONCILED WITH THE PATIENT PAST MEDICAL HISTORY MIGRAINES VENTRICULAR-SEPTAL DEFECT HX SEIZURES AFTER CRANIOTOMY FOR ARACHNOID CYST IN 2006 ANGIOECTASIA OF TERMINAL ILEUM, THERMAL THERAPY 01/17 [place], H/O GI BLEEDING WITH ACUTE BLOOD LOSS ANEMIA REQUIRING MTP HOSPITALIZATIONS, AND TRANSFUSIONS, NONE SINCE THERMAL THERAPY CKD 3, BASELINES SCR 1.4 - 1.6 DYSLIPIDEMIA WITH LOW HDL 12/21 23 UNBILICAL HERNIA HTN LOW BACK PAIN ALLERGIES NSAID: ELEVATED CREATININE - CONTRAINDICATION SURGICAL HISTORY CRANIOTOMY WITH HX OF ARACHNOID CYST 2006 NO PERSONAL OR FHX OF SEVERE REACTION TO ANESTHESIA EGD/COLONOSCOPY/CAPSULE ENDOSCOPY FOR GI BLEED--NEG BX DR SALINAS; HAD RECTAL VESSEL CLIPPED 2008 EGD/COLONOSCOPY--NL DR SALINAS 09/2011 EGD/COLONOSCOPY--MILD ESOPHAGITIS, BX NEG FOR BARRETTS; DR PRISCILA MARES [place] 2011 HERNIA REPAIR 11/24 RIGHT TORN MENISCUS SURGERY 03/2019 FAMILY HISTORY FATHER: MOTHER: ALIVE SIBLINGS: DIAGNOSED WITH HYPERTENSION 3 SISTER(S) . 2 SON(S) , 3 DAUGHTER(S) - HEALTHY. SON WITH HOLE IN HIS HEART. SOCIAL HISTORY GENERAL: TOBACCO USE ARE YOU A:NONSMOKER DIET: REGULAR. LANGUAGE LANGUAGES SPOKEN:ST HELENIAN DOMESTIC VIOLENCE DO YOU FEEL SAFE IN YOUR ENVIRONMENT?YES RECREATIONAL DRUG USE DRUG USE?NO LEARNING BARRIERS / SPECIAL NEEDS CHANGE FROM LAST VISIT?NO BARRIERS TO LEARNING?NO HEARING IMPAIRED?NO VISION IMPAIRED?NO COGNITIVELY IMPAIRED?NO READINESS TO LEARN?YES LEARNING PREFERENCES?NO LEARNING CAPABILITIES PRESENT?YES EMOTIONAL BARRIERS?NO SPECIAL DEVICES?NO ASSISTANT WOMEN'S TENNIS COACH NEEDED?NO PAIN CLINIC PFS, CLERGY, PUBLIC HEALTH REFERRALS PFS REFERRAL NEEDED?NO CLERGY REFERRAL NEEDED?NO PUBLIC HEALTH REFERRAL NEEDED?NO WAS THE PROVIDER NOTIFIED OF ANY PERTINENT INFO?YES N/A HAS THE PATIENT BEEN EDUCATED REGARDING HIS/HER PLAN OF CARE?YES HAS THE PATIENT BEEN EDUCATED REGARDING PAIN, THE RISK FOR PAIN, THE IMPORTANCE OF EFFECTIVE PAIN MANAGEMENT, AND THE PAIN ASSESSMENT PROCESS?YES LATEX QUESTIONNAIRE LATEX ALLERGY : HAVE YOU EVER DEVELOPED ANY TYPE OF REACTION AFTER HANDLING LATEX PRODUCTS SUCH RUBBER GLOVES, CONDOMS, DIAPHRAGMS, BALLOONS, SOCKS, OR UNDERWEAR?NO LATEX ALLERGY : HAVE YOU EVER DEVELOPED ANY TYPE OF REACTION DURING OR AFTER DENTAL APPOINTMENT, VAGINAL/RECTAL EXAMINATION, SURGICAL PROCEDURE, OR ANY OTHER EXPOSURE?NO LATEX RISK : HAVE YOU EVER HAD ANY DIFFICULTY BREATHING OR HIVES AFTER EATING OR HANDLING ANY FRUITS, OR VEGETABLES; SUCH KIWI, BANANAS, STONE FRUITS, OR CHESTNUTSNO LATEX RISK : DO YOU HAVE A PREVIOUS PERSONAL HISTORY OF MORE THAN NINE SURGERIES, SPINA BIFIDA, OR REPEATED CATHERIZATIONS? NO LATEX RISK : ARE YOU FREQUENTLY EXPOSED TO LATEX PRODUCTS IN YOUR OCCUPATION?NO DATE ASKED : 08/09/2019 CAFFEINE CAFFEINE USE?YES HOW OFTEN AND HOW MUCH? 1 CUP COFFEE/DAY ADVANCE DIRECTIVE ADVANCE DIRECTIVE DISCUSSED WITH PATIENT:YES 10/11/19 PT DECLINED INFORMATION OR ASSISTANCE ON HCP AT THIS TIME. JS CHRISTIAN [id number] NONE MARITAL STATUS: . ALCOHOL SCREENING DID YOU HAVE A DRINK CONTAINING ALCOHOL IN THE PAST YEAR?NO POINTS0 INTERPRETATIONNEGATIVE 07/20/18 0925 REVIEWED WITH PT. AD07/03/18 1140 REVIEWED WITH PT LAS12/27/18 0920 REVIEWED WITH PT LAS11/14/18 1625 LAS REVIEWED WITH PTREVIEWED WITH PATIENT 06/07/19 0950 JSREVIEWED WITH PATIENT 09/27/19 LASREVIEWED WITH PATIENT 10/11/19 1421 JS. HOSPITALIZATION/MAJOR DIAGNOSTIC PROCEDURE LOWER GI BLEEDING, MTP HOSPITALIZATIONS [id number] REVIEW OF SYSTEMS REVIEWED BY: PROVIDER: KIANNA MOE . CONSTITUTIONAL: ANY CHANGE IN YOUR MEDICAL CONDITION? NO . CHILLS NO . FEVER NO . INFECTION: DO YOU HAVE NEW INFECTIONS? NO . DO YOU HAVE HISTORY OF MRSA? NO . MUSCULOSKELETAL: ANY NEW PATTERNS OF PAIN OR NUMBNESS? YES, PAIN MUCH WORSE IN LOW BACK, HAS HAD TO MISS WORK 3 DAYS SINCE THE PROCEDURE. . GASTROENTEROLOGY: ANY NEW CHANGE IN BOWEL CONTROL? NO . GENITOURINARY: ANY NEW CHANGE IN BLADDER CONTROL? NO . IS THERE A CHANCE YOU COULD BE ? NO . HEMATOLOGY/LYMPH: DO YOU TAKE ANY BLOOD THINNERS? (FOR EXAMPLE- COUMADIN, PLAVIX, AGGRENOX, PLATEL, PRADAXA, OR XARELTO) NO . WHEN WAS YOUR LAST DOSE? DATE: TIME: . NEUROLOGY: HAVE YOU FALLEN IN THE PAST 12 MONTHS? NO . ANY NEW EXTREMITY NUMBNESS OR WEAKNESS? NO . CARDIOLOGY: DO YOU HAVE A PACEMAKER OR DEFIBRILLATOR? NO . RESPIRATORY: HAVE YOU BEEN SICK IN THE PAST WEEK? NO . FEVER NO . FLU LIKE SYMPTOMS? NO . COUGH NO . INTEGUMENTARY: DO YOU HAVE ANY RASHES OR OPEN SORES? NO . ALLERGIC/IMMUNO: ARE YOU ALLERGIC TO IV DYE? NO . ANY NEW ALLERGIES? NO . PSYCHIATRIC: DO YOU HAVE THOUGHTS OF HURTING YOURSELF OR SOMEONE ELSE? NO . ARE YOU ABUSED, NEGLECTED, OR IN AN UNSAFE ENVIRONMENT? NO . ENDOCRINOLOGY: ARE YOU DIABETIC? NO . OTHER: DO YOU NEED ANY PRESCRIPTIONS? YES . IF YES, PLEASE LIST: ____MAY WANT SOMETHING FOR THE PAIN . ANY NEW PROBLEMS WITH YOUR MEDICATIONS? NO . WHEN DID YOU LAST EAT? ____ . WHEN DID YOU LAST DRINK? ____ . WHAT DID YOU LAST DRINK? ____ . NAME OF PERSON DRIVING YOU HOME? ____ . DO YOU HAVE ANY OTHER QUESTIONS OR CONCERNS YES, CONCERNED ABOUT HIS PAIN BEING WORSE SINCE THE INJECTION . VITAL SIGNS WT 283.4 LBS, HT 74 IN, BMI 36.38 INDEX, BP 144/91 MM HG, HR 73 /MIN, RR 18 /MIN, TEMP 96.4 F, OXYGEN SAT % 96%, SAFE IN ENV? (Y/N) YES, NA INITIALS SC 14:29, REVIEWED BY: OMAR. EXAMINATION GENERAL EXAMINATION: GENERAL AWAKE,ALERT ,PLEASANT . PSYCH AFFECT NORMAL . LUNGS: LUNG CHO ARE CLEAR TO AUSCULTATION BILATERALLY. GOOD MOVEMENT OF AIR . HEART: S1, S2 IN A REGULAR RATE AND RHYTHM. NO SIGNIFICANT MURMURS, RUBS OR GALLOPS NOTED . FOR BILAT. SIJ PALPATION:TENDER OVER BILAT. L4/5-L5/S1 LUMBAR FACETS WITH FACET LOADING. AGGREVATION IN PAIN WITH EXTENSION OF SPINE. DIAGNOSTIC TESTS REVIEWED MRI L/S SPINE-09/10/16. ASSESSMENTS CHRONIC LOW BACK PAIN, UNSPECIFIED BACK PAIN LATERALITY, WITH SCIATICA PRESENCE UNSPECIFIED - M54.5 (PRIMARY) TREATMENT CHRONIC LOW BACK PAIN, UNSPECIFIED BACK PAIN LATERALITY, WITH SCIATICA PRESENCE UNSPECIFIED START OXYCODONE HCL TABLET, 15 MG, 1 TABLET, ORALLY, EVERY 6 HRS PRN MDD4 #90 TAB SHOULD LAST 30 DAYS, 30 DAYS, 90, REFILLS 0 [facility] MRI LS SPINE W/O AND WITH [id number],ASHLEY 10/12/2019 12:36:29 PM > JESSA AUGUST 10/12/2019 12:04:32 PM > PATIENT HAS APPOINTMENT FOR MRI LUMBAR SPINE W/ AND W/O CONTRAST AND THORACIC SPINE MRI W/ AND W/O CONTRAST TuesdayOct AT 10 AM. NO AUTH WAS REQUIRED FOR EITHER MRI'S CASE #'S [id number], AND [id number] [facility] MRI SPINE, THORACIC W/O & WITH [id number],ASHLEY 10/12/2019 12:36:21 PM > JESSA AUGUST 10/12/2019 12:04:32 PM > PATIENT HAS APPOINTMENT FOR MRI LUMBAR SPINE W/ AND W/O CONTRAST AND THORACIC SPINE MRI W/ AND W/O CONTRAST TuesdayOct AT 10 AM. NO AUTH WAS REQUIRED FOR EITHER MRI'S CASE #'S [id number], AND [id number] NOTES: ISTOP REGISTRY REVIEWED AND DEMONSTRATES COMPLLIANCE. , RISKS OF NARCOTIC/OPIOD MEDICATIONS INCLUDES BUT IS NOT LIMITED TO RISK OF DEPENDANCE/DEVELOPMENT OF ADDICTION, MOOD DISTURBANCE AND DEPRESSION, OSTEOPOROSIS, HORMONAL AND LABIDAL CHANGES, RESPIRATORY DEPRESSION AND . PATIENT IS ADVISED NOT TO DRIVE OR DRINK ALCOHOL WHILE ON THESE MEDICATIONS, [facility] NARCOTIC AGREEMENT WAS REVIEWED AND SIGNED TODAY BY THE PATIENT. SEE ATTACHED DOCUMENT FOR FULL DETAILS; SPECIFIC ISSUES WERE REVIEWED: 1) KEEP PAIN MEDS IN THEIR ORIGINAL BOTTLES AND ANY WEEKLY PLANNERS ARE TO BE BROUGHT TO THE PAIN CENTER AT EVERY VISIT. 2) THE PATIENT IS NOT TO INCREASE DOSING OR TIMING OF THEIR PAIN MEDICATION WITHOUT SPECIFIC DIRECTION OF THEIR PAIN CENTERPROVIDER (NOT ER OR OTHER PROVIDERS). 3) ALL PAIN MEDS ARE TO BE KEPT SECURED, IN A LOCKED BOX. 4) NO PAIN MEDS ARE TO BE SHARED WITH ANY OTHER PERSON FOR ANY REASON. 5) NO PAIN MEDS MAY BE TAKEN FROM ANY FRIENDS OR RELATIVES FOR ANY REASON 6) NO MEDS OR SUBSTANCES WHICH ARE NOT LEGAL ARE TO BE USED- NO MARIJUANA, NO COCAINE, AMPHETAMINES, HEROIN, OR OTHERS ARE EVER TO BE USED. 7)URINE TESTING IS DONE TO ACCOUNT FOR MEDS AND SUBSTANCES BEING TAKEN AND WILL BE DONE RANDOMLY. PROCEDURE CODES FA211 ESTABILISHED PATIENT [facility] CHARGE DISPOSITION & COMMUNICATION FOLLOW UP 4-6 WKS (REASON: REVIEW MRI) ELECTRONICALLY SIGNED BY PAYAL JACOBO ON 10/29/2019 AT 01:41 PM EST DISCLAIMER : THIS IS A VISIT SUMMARY EXTRACTED FROM THE [employer] CHART. IT IS NOT A COPY OF THE [employer] PROGRESS NOTE. SHAYY
== END ==
LOC: M PAIN 14:00
PROVIDERS: ATTEND Nurse Practitioner Family
DX: M54.5 Low back pain (principal); G43.909 Migraine, unspecified, not intractable, without status migrainosus; I10 Essential (primary) hypertension; Z88.6 Allergy status to analgesic agent; Z79.899 Other long term (current) drug therapy

== ENCOUNTER 2020-01-19 08:54 | Emergency (ER) | payer OTHER ==
[~2020-01-19] VITALS: Ht 193 cm; Wt 129.2 kg
[2020-01-19 10:11] LABS: INFLUENZA A AMPLIFICATION NEGATIVE (NEGATIVE); INFLUENZA B AMPLIFICATION NEGATIVE (NEGATIVE)
[2020-01-19] MEDS ORDERED: METH4PACK PO (11:05)
[2020-01-19] MEDS ORDERED: ZITHTAB PO (11:05)
[2020-01-19 11:28] VITALS: BP 165/72
--- NOTE | 2020-01-19 13:32 | REP ---
REASON FOR TODAY'S EXAM: Coughing, wheezing, and pyrexia. COMPARISON: Multiple, the latest 07/25/2016, a portable view, and the latest two-view examination 11/20/2013. When today's PA exam is compared to the latest prior PA exam, the confluent right perihilar opacity seen on that prior examination is completely unchanged. The cardiomediastinal silhouette is also unchanged. The heart is not enlarged. The pleural angles are sharp. There is no change in the osseous structures. IMPRESSION: There is no significant change when compared to the latest prior PA and lateral examination of 11/20/2013; however, I cannot completely exclude the possibility of acute disease superimposed upon chronic right perihilar changes. This should be correlated clinically with appropriate followup. Unreviewed
== END 2020-01-19 11:29 | disposition home or self-care (01) ==
LOC: M ED 08:54
DX: J06.9 Acute upper respiratory infection, unspecified (principal); I10 Essential (primary) hypertension; Z79.899 Other long term (current) drug therapy; Z88.8 Allergy status to other drugs, medicaments and biological substances

== ENCOUNTER 2020-01-27 18:16 | Emergency (ER) | payer OTHER ==
[~2020-01-27] VITALS: Ht 193 cm; Wt 123.4 kg
[~2020-01-27 18:16] MED LIST changes: +METH4PACK PO; +ZITHTAB PO
[2020-01-27] MEDS ORDERED: ONDANSETRON 4MG/2ML VIAL (J2405) IV ONE (18:30)
[2020-01-27] MEDS ORDERED: NS 1,000 ML IV ONE (18:30)
[2020-01-27] MEDS ORDERED: MORPHINE 4 MG/ML 1ML VIAL/SYRINGE (J2270) As Ordered ONE (18:32)
[2020-01-27] MEDS ORDERED: ONDANSETRON 4MG/2ML VIAL (J2405) As Ordered ONE (18:32)
[2020-01-27] MEDS: MORPHINE 4 MG/ML 1ML VIAL/SYRINGE (J2270) IV PRN ×2 (18:36→19:06)
[2020-01-27 18:49] LABS: HEMOGLOBIN 18.1 g/dl (13.5-17.5); MEAN CORPUSCULAR HEMOGLOBIN 31.4 pg (27.0-33.0); MEAN CORPUSCULAR HGB CONC 34.8 g/dl (32.0-36.5); MEAN CORPUSCULAR VOLUME 90.3 fl (80.0-96.0); PLATELET COUNT, AUTOMATED 317 10^3/uL (150-450); RED BLOOD COUNT 5.76 10^6/uL (4.30-6.10); WHITE BLOOD COUNT 13.2 10^3/uL (4.0-10.0)
[2020-01-27 19:00] LABS: INR 1.07; PROTHROMBIN TIME 13.6 SECONDS (11.8-14.0)
[2020-01-27] MEDS ORDERED: MORPHINE 4 MG/ML 1ML VIAL/SYRINGE (J2270) IV ONE (19:15)
--- NOTE | 2020-01-27 19:22 | REPVR ---
PROCEDURE INFORMATION: Exam: CT Cervical Spine Without Contrast Exam date and time: 01/27/2020 7:05 PM Age: 54 years old Clinical indication: Injury or trauma; Fall; Initial encounter; Blunt trauma TECHNIQUE: Imaging protocol: Computed tomography images of the cervical spine without contrast. Radiation optimization: All CT scans at this facility use at least one of these dose optimization techniques: automated exposure control; mA and/or kV adjustment per patient size (includes targeted exams where dose is matched to clinical indication); or iterative reconstruction. COMPARISON: XA FLUORO GUIDE SPINE INJECTION 08/09/2019 1:52 PM FINDINGS: Vertebrae: Reversal of normal cervical lordosis. Discs/Spinal canal/Neural foramina: Disc space narrowing from C3-C4 through C7-T1 with intervertebral osteophytes. There are degenerative changes demonstrated in the atlantoaxial joint with osteophytes and joint space narrowing. The transverse ligament is normal. Mild foraminal stenosis on the right at C3, moderate foraminal stenosis on the right at C4, moderate to severe foraminal stenosis on the right at C5 secondary to uncinate joint hypertrophic changes. Disc osteophyte complexes demonstrated from C3-C4 to C7-T1 resulting in varying degrees of effacement of the ventral subarachnoid space. There is moderate cord impingement at C3-C4, mild cord impingement at C4-C5 [id number] cord impingement at C5-C6 and moderate cord impingement at C6-C7. Soft tissues: Unremarkable. Lungs: Lung apices are normal. IMPRESSION: Degenerative spondylosis. No acute findings. Electronically signed by: Catarino Galloway On 01/27/2020 19:21:50 PM
[2020-01-27 19:24] LABS: ALT/SGPT 35 U/L (12-78); BILIRUBIN,DIRECT 0.1 MG/DL (0.0-0.2); BILIRUBIN,TOTAL 0.8 MG/DL (0.2-1.0); BLOOD UREA NITROGEN 19 MG/DL (7-18); CALCIUM LEVEL 8.8 MG/DL (8.5-10.1); CARBON DIOXIDE LEVEL 25 MEQ/L (21-32); CHLORIDE LEVEL 108 MEQ/L (98-107); CREATININE FOR GFR 1.26 MG/DL (0.70-1.30); GLOMERULAR FILTRATION RATE > 60.0 (>56); GLUCOSE, FASTING 99 MG/DL (70-100); POTASSIUM SERUM 4.5 MEQ/L (3.5-5.1); SODIUM LEVEL 140 MEQ/L (136-145); TOTAL PROTEIN 7.2 GM/DL (6.4-8.2)
--- NOTE | 2020-01-27 19:34 | REPVR ---
PROCEDURE INFORMATION: Exam: CT Chest Without Contrast Exam date and time: 01/27/2020 7:05 PM Age: 54 years old Clinical indication: Injury or trauma; Fall; Initial encounter; Blunt trauma (contusions or hematomas) TECHNIQUE: Imaging protocol: Computed tomography of the chest without contrast. 3D rendering: MIP and/or 3D reconstructed images were created by the technologist. Radiation optimization: All CT scans at this facility use at least one of these dose optimization techniques: automated exposure control; mA and/or kV adjustment per patient size (includes targeted exams where dose is matched to clinical indication); or iterative reconstruction. COMPARISON: CT ANGIO CHEST 10/16/2017 8:28 PM FINDINGS: Lungs: Unremarkable. No consolidation. No masses. Pleural space: Unremarkable. No pneumothorax. No pleural effusion. Heart: Cardiomegaly. Aorta: Unremarkable. No aortic aneurysm. Lymph nodes: Unremarkable. No enlarged lymph nodes. Bones/joints: Anterior dislocation of the left shoulder joint. Fractured displaced bony glenoid. Fractured coracoid process. Large Hill-Sachs deformity. The spine demonstrates mild degenerative changes. Dextroscoliosis. Soft tissues: Unremarkable. IMPRESSION: 1. Anterior dislocation of the left shoulder joint. Fractured bony glenoid and coracoid process. Large Hill-Sachs deformity. 2. Cardiomegaly. 3. No acute pulmonary parenchymal abnormalities. Electronically signed by: Catarino Galloway On 01/27/2020 19:34:29 PM
[2020-01-27] MEDS ORDERED: propofoL 200 MG/20 ML VIAL As Ordered ONE (19:37)
[2020-01-27] MEDS ORDERED: propofoL 200 MG/20 ML VIAL IV ONE ×2 (19:45→20:15)
--- NOTE | 2020-01-27 19:51 | REP ---
Clinical: Fall. Technique: Two views of the left shoulder. Findings: No obvious acute fracture or dislocation. Surrounding soft tissues are unremarkable. Impression: No acute fracture or dislocation. Electronically Signed by Johnny Galan MD 01/27/2020 07:42 P
--- NOTE | 2020-01-27 19:52 | REP ---
Clinical: Fall. Technique: AP and lateral views of the left forearm. Findings: No acute fracture or dislocation. Skeletal structures, joint spaces, and surrounding soft tissues are normal. Impression: No acute fracture or dislocation. Electronically Signed by Johnny Galan MD 01/27/2020 07:44 P
--- NOTE | 2020-01-27 19:54 | REP ---
Clinical: Trauma. Fall. Technique: Three views of the left humerus. Findings: Examination is limited. No obvious acute fracture or dislocation. Impression: No obvious acute fracture or dislocation. Electronically Signed by Johnny Galan MD 01/27/2020 07:46 P
[2020-01-27] MEDS ORDERED: NORC1TAB7 PO (20:26)
[2020-01-27 20:31] VITALS: BP 146/67
[2020-01-27] MEDS ORDERED: NORCO 5/325MG TABLET (BULK FOR ED) PO ONE (20:45)
== END 2020-01-27 20:52 | disposition home or self-care (01) ==
LOC: M ED 18:16
DX: S43.005A Unspecified dislocation of left shoulder joint, initial encounter (principal); T14.8XXA Other injury of unspecified body region, initial encounter; W11.XXXA Fall on and from ladder, initial encounter; Y92.099 Unspecified place in other non-institutional residence as the place of occurrence of the external cause; Y93.9 Activity, unspecified; Y99.9 Unspecified external cause status; I10 Essential (primary) hypertension; M47.812 Spondylosis without myelopathy or radiculopathy, cervical region; I51.7 Cardiomegaly; Z79.899 Other long term (current) drug therapy; Z88.8 Allergy status to other drugs, medicaments and biological substances
CPT/HCPCS: 23655; 71250; 72125; 73030; 73060; 73090; 80048; 80076; 85027; 85610; 86850; 86900; 86901; 96361; 96374; 96375; 96376; 99156; 99157; 99285; J2270; J2405

== ENCOUNTER → 2020-05-26 | Outpatient (CLI) | payer OTHER ==
[~2020-05-26] MED LIST changes: -ASPI81TA85 PO; +ASPI81TA86 PO; +NORC1TAB7 PO; +OXYC-1 PO; -OXYC15TA76 PO
--- NOTE | 2020-05-26 11:02 | ECGEPIP ---
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 Order Number: [id number] Reading MD: Wagner Foster Measurements Intervals [place] Rate: 55 P: 17 ID: [id number] QRS: 57 QRSD: 126 T: 29 QT: 418 QTc: 401 Interpretive Statements SINUS BRADYCARDIA RBBB. Poor R wave progression. Decreased heart rate compared with 03/13/2019. Electronically Signed on 05-26-2020 11:02:12 EDT by Wagner Foster
== END ==
LOC: M EKG 08:45
PROVIDERS: ATTEND Orthopaedic Surgery
DX: Z01.818 Encounter for other preprocedural examination (principal)

== ENCOUNTER → 2020-11-25 | Outpatient (CLI) | payer OTHER ==
[~2020-11-25] MED LIST changes: +LISI10TA22 PO; -LISI10TA4 PO
[2020-11-25 06:51] LABS: MEAN CORPUSCULAR HEMOGLOBIN 31.3 pg (27.0-33.0); MEAN CORPUSCULAR HGB CONC 33.3 g/dl (32.0-36.5); MEAN CORPUSCULAR VOLUME 93.8 fl (80.0-96.0); PLATELET COUNT, AUTOMATED 257 10^3/uL (150-450); RED BLOOD COUNT 5.44 10^6/uL (4.30-6.10); WHITE BLOOD COUNT 6.4 10^3/uL (4.0-10.0)
== END ==
LOC: M LAB 06:08
PROVIDERS: ATTEND Physician Assistant
DX: K92.2 Gastrointestinal hemorrhage, unspecified (principal)

== ENCOUNTER 2021-01-30 13:39 | Emergency (ER) | payer OTHER ==
[~2021-01-30] VITALS: Ht 193 cm; Wt 122.7 kg
[2021-01-30] MEDS ORDERED: NS 1,000 ML IV ONE ×2 (14:05)
[2021-01-30] MEDS ORDERED: METOCLOPRAMIDE INJ 10MG/2ML VIAL (J2765 PER 1) IV ONE (14:05)
[2021-01-30 14:13] LABS: BASO % 0.4 % (0.0-1.0); HEMATOCRIT 51.7 % (42.0-52.0); HEMOGLOBIN 17.8 g/dl (13.5-17.5); LYMPH # 1.5 10^3/uL (1.5-5.0); MEAN CORPUSCULAR HEMOGLOBIN 31.4 pg (27.0-33.0); MEAN CORPUSCULAR HGB CONC 34.4 g/dl (32.0-36.5); MEAN CORPUSCULAR VOLUME 91.2 fl (80.0-96.0); MONO # 0.6 10^3/uL (0.0-0.8); MONO % 11.7 % (2.0-8.0); NEUTROPHILS # 2.9 10^3/uL (1.5-8.5); NEUTROPHILS % 57.7 % (36.0-66.0); PLATELET COUNT, AUTOMATED 199 10^3/uL (150-450); RED BLOOD COUNT 5.67 10^6/uL (4.30-6.10)
[2021-01-30] MEDS ORDERED: ACETAMINOPHEN 500 MG TAB PO ONE (14:25)
[2021-01-30 14:46] LABS: ALBUMIN 3.7 GM/DL (3.2-5.2); BILIRUBIN,DIRECT 0.2 MG/DL (0.0-0.2); BILIRUBIN,TOTAL 0.7 MG/DL (0.2-1.0); CALCIUM LEVEL 8.6 MG/DL (8.5-10.1); CREATININE FOR GFR 1.35 MG/DL (0.70-1.30); GLOMERULAR FILTRATION RATE 58.9 (>56); POTASSIUM SERUM 4.4 MEQ/L (3.5-5.1)
[2021-01-30] MEDS ORDERED: NS 1,000 ML IV SCH (16:46)
[2021-01-30] MEDS ORDERED: ALBUTEROL SULFATE 2.5 MG/0.5 ML INH NEB SOLN INH PRN (16:50)
[2021-01-30] MEDS ORDERED: EPINEPHrine INJ 1 MG/ML 1ML AMP IM PRN (16:50)
[2021-01-30] MEDS ORDERED: ALBUTEROL 90 MCG/ACT 8GM HFA INHALER INH PRN (16:50)
[2021-01-30] MEDS ORDERED: diphenhydrAMINE 50MG/ML VIAL (J1200) IV PRN (16:50)
[2021-01-30] MEDS ORDERED: methylPREDNISolone 125MG 2ML VIAL IV PRN (16:50)
[2021-01-30] MEDS ORDERED: BAMLANIVIMAB 700 MG, ETESEVIMAB 1,400 MG in NS 250 ML IV ONE (18:00)
[2021-01-30 18:21] VITALS: BP 162/57
== END 2021-01-30 18:25 | disposition home or self-care (01) ==
LOC: M ED 13:39
DX: U07.1 COVID-19 (principal); I10 Essential (primary) hypertension; G43.909 Migraine, unspecified, not intractable, without status migrainosus; N18.9 Chronic kidney disease, unspecified; Z79.899 Other long term (current) drug therapy; Z88.8 Allergy status to other drugs, medicaments and biological substances
CPT/HCPCS: 80048; 80076; 83690; 85025; 96361; 96374; 99285; J2765

== ENCOUNTER 2021-01-30 16:57 | Outpatient (CLI) | payer OTHER ==
[~2021-01-30] VITALS: Ht 193 cm; Wt 123.9 kg
[2021-01-30] MEDS ORDERED: NS 1,000 ML IV SCH (17:21)
[2021-01-30] MEDS ORDERED: methylPREDNISolone 125MG 2ML VIAL IV PRN (17:25)
[2021-01-30] MEDS ORDERED: diphenhydrAMINE 50MG/ML VIAL (J1200) IV PRN (17:25)
[2021-01-30] MEDS ORDERED: ALBUTEROL SULFATE 2.5 MG/0.5 ML INH NEB SOLN INH PRN (17:25)
[2021-01-30] MEDS ORDERED: ALBUTEROL 90 MCG/ACT 8GM HFA INHALER INH PRN (17:25)
[2021-01-30] MEDS ORDERED: EPINEPHrine INJ 1 MG/ML 1ML AMP IM PRN (17:25)
[2021-01-30] MEDS ORDERED: BAMLANIVIMAB 700 MG, ETESEVIMAB 1,400 MG in NS 250 ML IV ONE (18:00)
[2021-01-30 19:00] VITALS: BP 152/83
--- NOTE | 2021-01-30 19:01 | CR.PDOC ---
General Date of Consultation: Jan 30, 2021 Referring Provider: A Consultation REASON FOR CONSULTATION/CHIEF COMPLAINT: Monoclonal Antibody infusion HISTORY OF PRESENT ILLNESS: Patient is a 55 year old male with CKD stage 3 has been sick for the past 8 days with intermittent fever, cough, abdominal pain nausea , vomiting and diarrhea. His had tested positive for COVID 8 days ago. His symptoms really worsened about 6 days ago. Today he was feeling very weak and tired and dizzy could hardly get out of bed. He was feeling dehydrated but could not keep much food or fluids down so came to the ED. He abdominal pain is sometimes constant sometimes crampy and present in the periumbilical region. In the ED he was found to be positive for COVID-19. He was give 2 liters of IVF and zofran after which he felt a little better. His did not have much respiratory symptoms. He was not hypoxic. Monoclonal antibody treatment was discussed by the ED provider and me. I went over the indications, and side effects with the patient . I explained that this was still an experimental drug ALLERGIES: Please see below. HOME MEDICATIONS: Please see below. 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 GENERAL APPEARANCE: awake alert and oriented x 3, siting up by the side of the bed in no distress. HEENT: normocephalic, atraumatic, moist mucous membranes. RESPIRATORY: clear to auscultation CARDIOVASCULAR: S1, S2 regular normal rate ABDOMEN: soft, tenderness in the periumbilical area, bowel sounds present EXTREMITIES: no edema LABORATORY DATA: Please see below. ASSESSMENT/PLAN: COVID - 19 infection for Monoclonal antibody infusion Allergies Coded Allergies: gabapentin (Verified Allergy, Unknown, seizures , 01/19/20) Home Medications Scheduled Lisinopril (Lisinopril) 10 Mg Tab, 10 MG PO DAILY, (Reported) Scheduled PRN Hydrocodone/Acetaminophen ([place] 5-325 Tablet) 1 Each Tablet, 1-2 TAB PO Q4-6HP PRN for pain for 5 Days, #20 MEME MATHEWS MD Jan 30, 2021 18:41
[2021-01-30 20:12] VITALS: BP 134/80
[2021-01-30 20:45] VITALS: BP 154/88
[2021-01-30 21:30] VITALS: BP 136/71
[2021-01-30 22:04] VITALS: BP 150/79
== END 2021-01-30 22:11 ==
LOC: M OPCLI4PV 16:57 → M OPCLI4 16:57 → M 4MAIN 19:11 → M OPCLI4 22:11
PROVIDERS: ATTEND Internal Medicine Nephrology
DX: U07.1 COVID-19 (principal); Z88.8 Allergy status to other drugs, medicaments and biological substances

== ENCOUNTER 2021-11-02 11:03 | Emergency (ER) | payer OTHER ==
[~2021-11-02] VITALS: Ht 193 cm; Wt 128.4 kg
[2021-11-02 11:43] LABS: BASO # 0.1 10^3/uL (0.0-0.2); BASO % 0.8 % (0.0-1.0); EOS # 0.2 10^3/uL (0.0-0.5); EOS % 2.6 % (0.0-3.0); HEMATOCRIT 51.4 % (42.0-52.0); HEMOGLOBIN 17.4 g/dl (13.5-17.5); LYMPH # 2.2 10^3/uL (1.5-5.0); LYMPH % 33.5 % (24.0-44.0); MEAN CORPUSCULAR HEMOGLOBIN 31.4 pg (27.0-33.0); MEAN CORPUSCULAR HGB CONC 33.9 g/dl (32.0-36.5); MEAN CORPUSCULAR VOLUME 92.8 fl (80.0-96.0); MONO # 0.6 10^3/uL (0.0-0.8); MONO % 9.6 % (2.0-8.0); NEUTROPHILS # 3.4 10^3/uL (1.5-8.5); PLATELET COUNT, AUTOMATED 271 10^3/uL (150-450); RED BLOOD COUNT 5.54 10^6/uL (4.30-6.10); WHITE BLOOD COUNT 6.5 10^3/uL (4.0-10.0)
[2021-11-02 12:09] LABS: CK-MB VALUE MASS 1.9 NG/ML (<3.6); MB/CK RELATIVE INDEX 1.57 (< OR =4)
[2021-11-02] MEDS ORDERED: GI COCKTAIL 50ML BTL(HYOSCYAMINE/MAALOX/LIDOCAINE VISCOUS)(1:3:1) PO ONE (12:30)
[2021-11-02 12:51] LABS: ALT/SGPT 33 U/L (12-78); BILIRUBIN,DIRECT 0.2 MG/DL (0.0-0.2); BILIRUBIN,TOTAL 1.1 MG/DL (0.2-1.0); BLOOD UREA NITROGEN 17 MG/DL (7-18); CALCIUM LEVEL 8.9 MG/DL (8.5-10.1); CARBON DIOXIDE LEVEL 28 MEQ/L (21-32); CHLORIDE LEVEL 109 MEQ/L (98-107); CREATININE FOR GFR 1.28 MG/DL (0.70-1.30); FREE T4 0.91 NG/DL (0.76-1.46); GLOMERULAR FILTRATION RATE > 60.0 (>56); GLUCOSE, FASTING 91 MG/DL (70-100); LIPASE 122 U/L (73-393); POTASSIUM SERUM 4.6 MEQ/L (3.5-5.1); SODIUM LEVEL 141 MEQ/L (136-145)
[2021-11-02] MEDS ORDERED: ISOVUE-370 76% 100ML VIAL As Ordered ONE (13:16)
[2021-11-02 14:24] LABS: MB/CK RELATIVE INDEX 0.94 (< OR =4)
[2021-11-02] MEDS ORDERED: SUCRALFATE SUSP 1GM/10ML UD PO ONE (14:55)
[2021-11-02] MEDS ORDERED: KETOROLAC 30 MG/ML 1ML VIAL IV ONE (14:55)
[2021-11-02] MEDS ORDERED: OMEP40CA4 PO (15:08)
[2021-11-02] MEDS ORDERED: SUCR1TA PO (15:08)
[2021-11-02 16:18] VITALS: BP 137/86
== END 2021-11-02 16:30 | disposition home or self-care (01) ==
LOC: M ED 11:03
DX: R07.89 Other chest pain (principal); K21.9 Gastro-esophageal reflux disease without esophagitis; R00.1 Bradycardia, unspecified; I45.19 Other right bundle-branch block; I10 Essential (primary) hypertension; E78.5 Hyperlipidemia, unspecified; K44.9 Diaphragmatic hernia without obstruction or gangrene; N18.30 Chronic kidney disease, stage 3 unspecified; Z79.899 Other long term (current) drug therapy; Z88.8 Allergy status to other drugs, medicaments and biological substances
CPT/HCPCS: 71045; 71275; 80047; 80048; 80076; 82550; 82553; 83690; 84439; 84443; 84484; 85025; 93005; 93041; 94760; 96374; 99285; J1885; Q9967

== ENCOUNTER → 2021-11-11 | Outpatient (REF) | payer OTHER ==
[~2021-11-11] MED LIST changes: +OMEP40CA4 PO; +SUCR1TA PO
== END ==
LOC: M LAB REF 22:17
PROVIDERS: ATTEND Physician Assistant
DX: R50.9 Fever, unspecified (principal); R05.9 Cough, unspecified

== ENCOUNTER → 2022-06-25 | Outpatient (CLI) | payer OTHER | LOC: M EKG 08:16 | PROVIDERS: ATTEND Orthopaedic Surgery | DX: S83.282D Other tear of lateral meniscus, current injury, left knee, subsequent encounter (principal); R00.1 Bradycardia, unspecified; I45.10 Unspecified right bundle-branch block; R94.31 Abnormal electrocardiogram [ECG] [EKG] ==

== ENCOUNTER → 2023-07-01 | Outpatient (REF) | payer OTHER | LOC: M SFHCADAM 12:11 | PROVIDERS: ATTEND Family Medicine | DX: Z53.9 Procedure and treatment not carried out, unspecified reason (principal) ==

== ENCOUNTER → 2023-09-14 | Outpatient (REF) | payer OTHER ==
[2023-09-14 18:09] LABS: HEMATOCRIT 47.4 % (42.0-52.0); HEMOGLOBIN 15.8 g/dl (13.5-17.5); MEAN CORPUSCULAR HEMOGLOBIN 32.2 pg (27.0-33.0); MEAN CORPUSCULAR HGB CONC 33.3 g/dl (32.0-36.5); MEAN CORPUSCULAR VOLUME 96.5 fl (80.0-96.0); PLATELET COUNT, AUTOMATED 268 10^3/uL (150-450); RED BLOOD COUNT 4.91 10^6/uL (4.30-6.10); WHITE BLOOD COUNT 7.7 10^3/uL (4.0-10.0)
== END ==
LOC: M WUC 17:01
PROVIDERS: ATTEND Internal Medicine Gastroenterology
DX: K62.5 Hemorrhage of anus and rectum (principal); R10.31 Right lower quadrant pain

== ENCOUNTER → 2024-03-07 | Outpatient (REF) | payer OTHER ==
[2024-03-07 17:55] LABS: PSA SCREENING 1.26 NG/ML (< 4.00)
[2024-03-07 17:56] LABS: HEMATOCRIT 48.9 % (42.0-52.0); HEMOGLOBIN 16.3 g/dl (13.5-17.5); MEAN CORPUSCULAR HGB CONC 33.3 g/dl (32.0-36.5); MEAN CORPUSCULAR VOLUME 96.1 fl (80.0-96.0); PLATELET COUNT, AUTOMATED 291 10^3/uL (150-450); RED BLOOD COUNT 5.09 10^6/uL (4.30-6.10); WHITE BLOOD COUNT 7.3 10^3/uL (4.0-10.0)
[2024-03-07 17:57] LABS: ALBUMIN 3.8 G/DL (3.2-5.2); ALKALINE PHOSPHATASE 61 U/L (46-116); ALT/SGPT 21 U/L (7.0-40); AST/SGOT 19 U/L (<34); BILIRUBIN,TOTAL 1.6 MG/DL (0.3-1.2); BLOOD UREA NITROGEN 21 MG/DL (9-23); CALCIUM LEVEL 9.3 MG/DL (8.5-10.1); CARBON DIOXIDE LEVEL 29 MMOL/L (20-31); CHLORIDE LEVEL 107 MMOL/L (98-107); CHOLESTEROL LEVEL 177 MG/DL (<200); CHOLESTEROL RISK RATIO 5.05 (<5); CREATININE FOR GFR 1.07 MG/DL (0.70-1.30); GLOMERULAR FILTRATION RATE > 60.0 (>56); GLUCOSE, FASTING 83 MG/DL (60-100); LDL CHOLESTEROL 120.2 MG/DL (<100); POTASSIUM SERUM 4.7 MMOL/L (3.5-5.1); SODIUM LEVEL 141 MMOL/L (136-145); TOTAL PROTEIN 6.7 G/DL (5.7-8.2); TRIGLYCERIDES LEVEL 109 MG/DL (<150)
[2024-03-07 17:59] LABS: FREE T4 0.96 NG/DL (0.89-1.76); THYROID STIMULATING HORMONE 1.625 uIU/ML (0.55-4.78)
== END ==
LOC: M SFHCADAM 12:15
PROVIDERS: ATTEND Family Medicine
DX: Q21.0 Ventricular septal defect (principal); E78.5 Hyperlipidemia, unspecified; I10 Essential (primary) hypertension; Z12.5 Encounter for screening for malignant neoplasm of prostate; Z13.1 Encounter for screening for diabetes mellitus
CPT/HCPCS: 80053; 80061; 83036; 84439; 84443; 85027; G0103

== ENCOUNTER → 2024-06-11 | Outpatient (CLI) | payer OTHER | LOC: M RAD 10:28 | PROVIDERS: ATTEND Physician Assistant | DX: B34.9 Viral infection, unspecified (principal); R05.9 Cough, unspecified ==

== ENCOUNTER → 2024-07-13 | Outpatient (REF) | payer OTHER | LOC: M SFHCADAM 12:46 | PROVIDERS: ATTEND Physician Assistant | DX: G93.31 Postviral fatigue syndrome (principal); R05.3 Chronic cough ==

== ENCOUNTER → 2024-09-18 | Outpatient (CLI) | payer OTHER ==
[2024-09-18 18:30] LABS: BASO % 0.6 % (0.0-1.0); EOS # 0.2 10^3/uL (0.0-0.5); EOS % 3.2 % (0.0-3.0); HEMATOCRIT 45.8 % (42.0-52.0); HEMOGLOBIN 15.8 g/dl (13.5-17.5); LYMPH # 2.5 10^3/uL (1.5-5.0); MEAN CORPUSCULAR HEMOGLOBIN 32.8 pg (27.0-33.0); MEAN CORPUSCULAR HGB CONC 34.5 g/dl (32.0-36.5); MONO # 0.8 10^3/uL (0.0-0.8); MONO % 11.6 % (2.0-8.0); NEUTROPHILS % 46.3 % (36.0-66.0); PLATELET COUNT, AUTOMATED 266 10^3/uL (150-450); RED BLOOD COUNT 4.82 10^6/uL (4.30-6.10); WHITE BLOOD COUNT 6.6 10^3/uL (4.0-10.0)
[2024-09-18 18:47] LABS: BLOOD UREA NITROGEN 17 MG/DL (9-23); CALCIUM LEVEL 9.4 MG/DL (8.5-10.1); CARBON DIOXIDE LEVEL 31 MMOL/L (20-31); CHLORIDE LEVEL 108 MMOL/L (98-107); CREATININE FOR GFR 1.11 MG/DL (0.70-1.30); GLOMERULAR FILTRATION RATE > 60.0 (>56); GLUCOSE, FASTING 87 MG/DL (60-100); POTASSIUM SERUM 4.5 MMOL/L (3.5-5.1); SODIUM LEVEL 142 MMOL/L (136-145)
== END ==
LOC: M LAB 17:25
PROVIDERS: ATTEND Internal Medicine Cardiovascular Disease
DX: Q21.0 Ventricular septal defect (principal)

== ENCOUNTER → 2025-02-02 | Outpatient (CLI) | payer OTHER ==
[2025-02-02 09:12] LABS: HEMATOCRIT 45.5 % (42.0-52.0); HEMOGLOBIN 15.5 g/dl (13.5-17.5); MEAN CORPUSCULAR HEMOGLOBIN 31.4 pg (27.0-33.0); MEAN CORPUSCULAR HGB CONC 34.1 g/dl (32.0-36.5); MEAN CORPUSCULAR VOLUME 92.1 fl (80.0-96.0); PLATELET COUNT, AUTOMATED 271 10^3/uL (150-450); RED BLOOD COUNT 4.94 10^6/uL (4.30-6.10); WHITE BLOOD COUNT 5.5 10^3/uL (4.0-10.0)
[2025-02-02 09:42] LABS: ALBUMIN 3.8 G/DL (3.2-5.2); ALKALINE PHOSPHATASE 56 U/L (40-129); ALT/SGPT 19 U/L (7.0-40); AST/SGOT 19 U/L (<34); BLOOD UREA NITROGEN 17 MG/DL (9-23); CARBON DIOXIDE LEVEL 27 MMOL/L (20-31); CHLORIDE LEVEL 107 MMOL/L (98-107); CREATININE FOR GFR 1.09 MG/DL (0.70-1.30); GLOMERULAR FILTRATION RATE > 60.0 (>56); GLUCOSE, FASTING 91 MG/DL (60-100); POTASSIUM SERUM 4.8 MMOL/L (3.5-5.1); SODIUM LEVEL 141 MMOL/L (136-145); TOTAL PROTEIN 6.7 G/DL (5.7-8.2)
== END ==
LOC: M LAB 08:11
PROVIDERS: ATTEND Physician Assistant
DX: R10.31 Right lower quadrant pain (principal); K92.2 Gastrointestinal hemorrhage, unspecified

== ENCOUNTER → 2025-02-11 | Outpatient (CLI) | payer OTHER ==
[2025-02-11 18:12] LABS: HEMATOCRIT 43.6 % (42.0-52.0); MEAN CORPUSCULAR HEMOGLOBIN 32.1 pg (27.0-33.0); MEAN CORPUSCULAR HGB CONC 34.4 g/dl (32.0-36.5); MEAN CORPUSCULAR VOLUME 93.2 fl (80.0-96.0); PLATELET COUNT, AUTOMATED 264 10^3/uL (150-450); RED BLOOD COUNT 4.68 10^6/uL (4.30-6.10); WHITE BLOOD COUNT 7.8 10^3/uL (4.0-10.0)
[2025-02-11 18:51] LABS: ALBUMIN 3.9 G/DL (3.2-5.2); ALKALINE PHOSPHATASE 60 U/L (40-129); ALT/SGPT 21 U/L (7.0-40); AST/SGOT 19 U/L (<34); BILIRUBIN,TOTAL 0.7 MG/DL (0.3-1.2); BLOOD UREA NITROGEN 17 MG/DL (9-23); CALCIUM LEVEL 9.1 MG/DL (8.5-10.1); CARBON DIOXIDE LEVEL 31 MMOL/L (20-31); CHLORIDE LEVEL 104 MMOL/L (98-107); CREATININE FOR GFR 1.17 MG/DL (0.70-1.30); GLOMERULAR FILTRATION RATE > 60.0 (>56); GLUCOSE, FASTING 87 MG/DL (60-100); POTASSIUM SERUM 4.2 MMOL/L (3.5-5.1); SODIUM LEVEL 141 MMOL/L (136-145); TOTAL PROTEIN 6.8 G/DL (5.7-8.2)
== END ==
LOC: M LAB 17:34
PROVIDERS: ATTEND Family Medicine
DX: K92.2 Gastrointestinal hemorrhage, unspecified (principal); K92.1 Melena; R10.31 Right lower quadrant pain

== ENCOUNTER → 2025-02-14 | Outpatient (CLI) | payer OTHER ==
[~2025-02-14] MED LIST changes: +ISOVUE-370 76% 100ML VIAL ONE
== END ==
LOC: M PLAIMG 08:27
PROVIDERS: ATTEND Physician Assistant
DX: R10.31 Right lower quadrant pain (principal); K62.5 Hemorrhage of anus and rectum; K64.8 Other hemorrhoids; K76.0 Fatty (change of) liver, not elsewhere classified; Z90.49 Acquired absence of other specified parts of digestive tract; K57.30 Diverticulosis of large intestine without perforation or abscess without bleeding; K40.90 Unilateral inguinal hernia, without obstruction or gangrene, not specified as recurrent; K42.9 Umbilical hernia without obstruction or gangrene
CPT/HCPCS: 74177; Q9967